=== PATIENT | female | born 1955 | race Caucasian/White ===

== ENCOUNTER → 2023-06-15 09:35 | Outpatient (REF) | payer OTHER, SELFPAY | LOC: HWWDC 09:35 | PROVIDERS: ATTENDING PHYSICIAN Internal Medicine | DX: Z12.31 Encounter for screening mammogram for malignant neoplasm of breast (principal) | CPT/HCPCS: 77063; 77067 ==

== ENCOUNTER 2024-05-01 12:35 | Emergency (ER) | payer OTHER, SELFPAY ==
[2024-05-01 13:02] VITALS: BP 168/87
[2024-05-01 13:30] LABS: % Basophils 0.7 % (0-2); % Eosinophils 0.9 % (0-6); % Immature Granulocytes 0.2 % (0-0.5); % Lymphocytes 31.7 % (20.5-51.1); % Monocytes 10.3 % (1.7-9.3); % Neutrophils 56.2 % (42.2-75.2); Absolute Lymphocytes 1.5 10^3/uL (1.2-3.4); Absolute Monocytes 0.5 10^3/uL (0.1-0.6); Absolute Neutrophils 2.6 10^3/uL (1.4-6.5); Hematocrit 38.7 % (37.0-47.0); Hemoglobin 13.4 g/dL (12.0-16.0); Mean Corp Hgb Conc. 34.6 g/dL (33.0-37.0); Mean Corpuscular Hgb 30.9 pg (27.0-31.0); Mean Corpuscular Volume 89.4 fL (81.0-99.0); Mean Platelet Volume 8.4 fL (7.4-10.4); Nucleated Red Blood Cells % 0 %; Platelet Count 224 10^3/uL (130-400); Red Blood Cell Count 4.33 10^6/uL (4.20-5.40); Red Cell Dist. Width 11.9 % (11.5-14.5); White Blood Cell Count 4.6 10^3/uL (4.8-10.8)
[2024-05-01 13:43] LABS: ALT (SGPT) 16 U/L (0-35); AST (SGOT) 23 U/L (14-36); Albumin 4.7 g/dl (3.5-5.0); Alkaline Phosphatase 70 U/L (38-126); Blood Urea Nitrogen 21 mg/dl (7-17); Calcium 9.5 mg/dl (8.4-10.2); Carbon Dioxide 26 mmol/L (22-30); Chloride 101 mmol/L (98-107); Glucose 99 mg/dl (70-99); Potassium 4.2 mmol/L (3.5-5.1); Sodium 136 mmol/L (135-145); Total Bilirubin 1.1 mg/dl (0.2-1.3); Total Protein 7.6 g/dl (6.3-8.2); eGFR > 60.00
[2024-05-01 13:53] LABS: Troponin I < 0.012 ng/ml
[2024-05-01 16:12] VITALS: BP 160/74
[2024-05-01 16:16] VITALS: BMI 31.2
--- NOTE | 2024-05-01 16:27 | ED.GENMED ---
History of Present Illness
<Franci Griffiths PA-C - Last Filed: 05/01/24 18:09>
General
Chief Complaint: Chest Problem
Source: patient
Exam Limitations: none
Time Seen by Provider: 05/01/24 16:23
Nursing documentation reviewed up to this point in time: agreed with
History of Present Illness
History of Present Illness:
69 y/o female with pmh of Crohn's disease, HLP who presents to the emergency department with chest pain for the past week. Patient reports that when this first started, she thought nothing of it and thought it could be indigestion. Patient reports
that then her systems persisted and when her symptoms lasted around a week, she told her family who recommended she report to the emergency department. She called her primary care provider letting her know of the symptoms who also recommended she
should come in. She denies a positional or pleuritic component to her symptoms. She denies any recent long distance travel, denies any redness or swelling in her legs. She denies any abdominal pain, nausea, vomiting. Patient does note that she
has had a cough and some respiratory symptoms recently, denies any fevers or chills. She denies any personal history of cardiac disease, she does note that her's sister and her mom have coronary artery disease.
Past History
<Franci Griffiths PA-C - Last Filed: 05/01/24 18:09>
Past History
ED Past Medical History: CVA, Hypercholesterolemia and Other (TIA/Crohn's disease )
ED Past Surgical History: None and Orthopedic
Social History
Tobacco: Non-smoker
Alcohol: Occasional
Drug: None
Personal:
Living: with family
Family History
Family History: Other (Mother with breast cancer, father with a brain tumor)
Review of Systems
<Franci Griffiths PA-C - Last Filed: 05/01/24 18:09>
Review of Systems
All Other Systems: ROS reviewed and negative except as documented in HPI and ROS
Phy Exam
<Franci Griffiths PA-C - Last Filed: 05/01/24 18:09>
Physical Exam
Physical Exam:
General: Patient is well appearing and in no acute distress; non-toxic
Skin: Warm and dry, no rashes or lesions
Head: Normocephalic, atraumatic
Eyes: Sclera non-icteric. EOMs intact.
Cardiac: Regular rate and rhythm, no murmurs
Peripheral Vascular: No lower extremity swelling or edema
Pulm: Normal respiratory effort, no wheezes, rales, or rhonchi
Musculoskeletal: No tenderness to palpation of the external chest wall
Neuro: CN II-XII intact, no focal neurologic deficits.
Psychiatric: Appropriate mood and affect.
Course
<Franci Griffiths PA-C - Last Filed: 05/01/24 18:09>
Orders/Labs/Results
Orders:
Orders
05/01/24 13:05
Electrocardiogram (*1) Urgent
Reason for Study: Chest Pain
EKG- Treatment ONCE
05/01/24 13:14
Complete Blood Count/With Diff Urgent
Comprehensive Metabolic Panel Urgent
Troponin I Urgent
05/01/24 16:29
Troponin I Urgent
05/01/24 16:44
CR Chest - 2 Views Urgent
Comment:
Reason For Exam: chest pain
Abnormal Lab Results
05/01/24
13:14
WBC 4.6 L 10^3/uL
(4.8-10.8)
Monocytes % 10.3 H %
(1.7-9.3)
BUN 21 H mg/dl
(7-17)
05/01/24 13:14
05/01/24 13:14
Vital Signs
Initial and Last Documented VS:
Initial Vital Signs
Temp Pulse Resp BP Pulse Ox
36.9 C 78 18 168/87 99
05/01/24 13:02 05/01/24 13:02 05/01/24 13:02 05/01/24 13:02 05/01/24 13:02
Last Documented Vital Signs
Temp Pulse Resp BP Pulse Ox
37.1 C 64 18 154/77 96
05/01/24 16:16 05/01/24 17:15 05/01/24 17:15 05/01/24 18:00 05/01/24 18:00
<Bhupendra Vaughan MD - Last Filed: 05/01/24 20:38>
Orders/Labs/Results
Orders:
Orders
05/01/24 13:05
Electrocardiogram (*1) Urgent
Reason for Study: Chest Pain
EKG- Treatment ONCE
05/01/24 13:14
Complete Blood Count/With Diff Urgent
Comprehensive Metabolic Panel Urgent
Troponin I Urgent
05/01/24 16:29
Troponin I Urgent
05/01/24 16:44
CR Chest - 2 Views Urgent
Comment:
Reason For Exam: chest pain
Abnormal Lab Results
05/01/24
13:14
WBC 4.6 L 10^3/uL
(4.8-10.8)
Monocytes % 10.3 H %
(1.7-9.3)
BUN 21 H mg/dl
(7-17)
05/01/24 13:14
05/01/24 13:14
Vital Signs
Initial and Last Documented VS:
Initial Vital Signs
Temp Pulse Resp BP Pulse Ox
36.9 C 78 18 168/87 99
05/01/24 13:02 05/01/24 13:02 05/01/24 13:02 05/01/24 13:02 05/01/24 13:02
Last Documented Vital Signs
Temp Pulse Resp BP Pulse Ox
37.1 C 64 18 154/77 96
05/01/24 16:16 05/01/24 17:15 05/01/24 17:15 05/01/24 18:00 05/01/24 18:00
<Franci Griffiths PA-C - Last Filed: 05/01/24 18:09>
MDM/Problems Addressed
Differential Diagnosis Includes:
see below
MDM/Problems Addressed:
NUMBER AND COMPLEXITY OF PROBLEMS ADDRESSED AT THE ENCOUNTER
� Chronic conditions affecting care: HLP, crohn's disease
� Acute Exacerbation and/or Progression of Chronic Illness: n/a
� Differential Diagnosis includes: ACS, costochondritis, GERD, musculoskeletal sprain/strain, pneumothorax
AMOUNT AND/OR COMPLEXITY OF DATA TO BE REVIEWED AND ANALYZED
� I performed an independent evaluation of and my interpretation is:
EKG: Normal sinus rhythm with no concerning ischemic changes, no ST segment elevation or depression, rate 69, no QT prolongation
X-rays: No acute cardiopulmonary abnormality
Laboratory Studies: CBC and CMP unremarkable, troponin undetectable x 2
Other:
� Review of other/old records: Reviewed previous ER physician documentation from 11/01/2021 3, patient seen for fall, patient had a negative workup and was sent home
� Clinical information was obtained by an independent historian: n/a
� Prescriptions/Medications Considered but not given: n/a
� Further testing considered but not performed: n/a
RISK OF COMPLICATIONS AND/OR MORBIDITY OR MORTALITY OF PATIENT MANAGEMENT
� Social determinants of health affecting care: none
� Discussion with other providers: ER attending
� Escalation of care including admission/observation vs risk of discharge considered:
69-year-old female presents to emergency department with chest pressure for the past week. She has a mild associated cough but no other associate symptoms. She has no cardiac history. She has no DVT risk factors. She is well-appearing on exam.
She did 2 undetectable repeat troponins. Her EKG does not show any concerning ischemic changes. Her chest x-ray does not show any evidence of pneumonia or pneumothorax or any other acute cardiopulmonary abnormality. Patient states that she
thought this could be indigestion however states that feels a bit different than indigestion she has had in the past. Will trial on a PPI to see if this helps her symptoms, suspect either GERD versus costochondritis. Patient does have a follow-up
appointment with her PCP in May for reassessment. Patient stable for discharge.
<Franci Griffiths PA-C - Last Filed: 05/01/24 18:09>
*Critical Care Note
Total Time (30-74mins, 75-104mins- exclusive of procedures): Not Applicable
ED Attending Note
<Franci Griffiths PA-C - Last Filed: 05/01/24 18:09>
-
Portions of this chart may have been created with voice recognition software.� Occasional wrong word or��sound alike� substitutions may have occurred due to the inherent limitations of voice recognition software.
<Bhupendra Vaughan MD - Last Filed: 05/01/24 20:38>
ED Attending Note
Patient seen and examined by attending physician: Yes
ED Attending Note:
I have seen and evaluated the patient with a [id number] encounter. I have spoken to the advance practicer provider and involved in the medical history, the physical exam, medical decision making.
Evaluation and management service: agree unless noted differently below.
Results interpretation: agree unless noted differently below.
Focused HPI: 69-year-old female with history of hyperlipidemia, Crohn's disease presents to the ER for evaluation of chest pain. Patient reports symptoms have been consistent for a week. She describes generalized heaviness/pressure substernal. No
exacerbating or relieving factors noted. Specifically denies exertional component. Denies any significant shortness of breath. She denies any coughing or fever. She denies any nausea, vomiting, abdominal pain. Has not noticed any swelling or
pain in the legs. She denies similar symptoms in the past. She denies any known cardiac history. Only family history of heart disease is valvular issues and her sister and CAD in her mother at end-of-life.
Physical exam: Awake alert and well-appearing. Vital signs noted for mild hypertension. She has no edema. Abdomen nontender. No cardiac rubs gallops or murmurs. Lungs clear to auscultation.
Medical Decision Makin-year-old female presents for evaluation of atypical nonexertional chest pain. Vitals and exam as above. Labs including CBC and CMP unremarkable. Serial troponins undetectable. Chest x-ray reviewed by me shows no acute
disease. Low suspicion for emergent pathology, suspicion is potentially for GERD. Reasonable to trial PPI. Referred to PCP for outpatient follow-up. Patient comfortable with this plan. All questions answered.
Discharge Plan
Departure
Patient Disposition: Home (Routine Discharge)
Date of Disposition: 05/01/24
Time of Disposition: 18:06
Patient with high blood pressure during this ER visit?: Yes
Condition: Good
Discharge Problem:
Chest pain
Instructions: Chest Pain (DC), Acid reflux and GERD in adults, BLOOD PRESSURE
Prescriptions:
New
pantoprazole 40 mg tablet,delayed release (DR/EC)
40 mg PO DAILY 14 Days Qty: 14 0RF
No Action
Pharmanex Vitamin Pack- 7 Vitamins
7 tab PO DAILY
Patient Comments:
Pt unsure of exact doseage
OMEGA-3
2 tab PO DAILY
Patient Comments:
Pt unsure of exact dose
Pharmanex Cartiledge
2 tab PO DAILY
Patient Comments:
Pt unsure of exact dose of medication
Pharmanex Pro-Biotic
1 tab PO DAILY
Patient Comments:
Pt unsure of exact dose
VITAMIN D 1,000 MG
1 tab PO DAILY
Patient Comments:
Pt unsure of exact doseage
gabapentin 300 MG capsule
300 mg PO HS
Simvastatin
PO DAILY
Referrals:
UNKNOWN - PT DOES,NOT KNOW [Family Provider] -
Activity Restrictions/Additional Instructions:
A medication called pantoprazole has been sent to your pharmacy. You can take 1 tablet once daily for 2-week trial. Please take this in the morning. Please follow-up with your primary care provider as scheduled in May for reassessment.
Please return to emergency department should you experience an acute worsening of your symptoms, shortness of breath, lightheadedness, dizziness, radiation of the pain, confusion, weakness, facial droop, trouble speaking, or any other signs or
symptoms worrisome to you.
Interventions
Interventions:
*Risk Screen - Suicide Last Done: 05/01/24 16:23
*General Assessment Last Done: 05/01/24 16:23
*Neglect/Abuse Screening Last Done: 05/01/24 16:23
ED- Fall Risk Assessment Last Done: 05/01/24 16:21
*ED COVID-19 Vaccine History Last Done: 05/01/24 16:23
*Nursing Disposition Last Done: 05/01/24 18:16
ED- Cardiac Assessment Last Done: 05/01/24 16:21
ED- Pulmonary Assessment Last Done: 05/01/24 16:21
Discharge Date and Time
Discharge Date/Time: 05/01/24 18:17
Print Language: ROMANIAN
[2024-05-01 17:00] VITALS: BP 139/74
[2024-05-01 17:06] LABS: Troponin I < 0.012 ng/ml
[2024-05-01 18:00] VITALS: BP 154/77
== END 2024-05-01 18:17 | disposition home or self-care (01) ==
LOC: EMR 12:35
PROVIDERS: Emergency Medicine; Physician Assistant; EMERGENCY PHYSICIAN Emergency Medicine
DX: R07.89 Other chest pain (principal); K50.90 Crohn's disease, unspecified, without complications; E78.00 Pure hypercholesterolemia, unspecified; Z80.3 Family history of malignant neoplasm of breast; Z82.49 Family history of ischemic heart disease and other diseases of the circulatory system; Z86.73 Personal history of transient ischemic attack (TIA), and cerebral infarction without residual deficits
CPT/HCPCS: 99283; 71046; 80053; 84484; 85025; 93005

== ENCOUNTER → 2024-06-17 12:33 | Outpatient (REF) | payer OTHER, SELFPAY | LOC: HWRAD 12:33 | PROVIDERS: ATTENDING PHYSICIAN Emergency Medicine; REFERRING PHYSICIAN Obstetrics & Gynecology | DX: N95.1 Menopausal and female climacteric states (principal); Z12.31 Encounter for screening mammogram for malignant neoplasm of breast | CPT/HCPCS: 77063; 77067; 77080 ==

== ENCOUNTER → 2024-06-25 08:13 | Outpatient (REF) | payer OTHER, SELFPAY | LOC: RST 08:13 | PROVIDERS: ATTENDING PHYSICIAN Emergency Medicine | DX: R13.10 Dysphagia, unspecified (principal) | CPT/HCPCS: 74230; 92611 ==

== ENCOUNTER 2024-11-15 13:08 | Inpatient (IN) | payer OTHER, SELFPAY ==
[2024-11-15] VITALS (15 sets, daily range): BP systolic 94–130; BP diastolic 55–77; BMI 28.8
[2024-11-15 06:54] LABS: ALT (SGPT) 47 U/L (0-35); AST (SGOT) 34 U/L (14-36); Albumin 2.8 g/dl (3.5-5.0); Alkaline Phosphatase 72 U/L (38-126); Blood Urea Nitrogen 15 mg/dl (7-17); Calcium 7.3 mg/dl (8.4-10.2); Carbon Dioxide 18 mmol/L (22-30); Chloride 107 mmol/L (98-107); Estimated Creatinine Clearance 74 ml/min; Glucose 151 mg/dl (70-99); Lipase 43 U/L (23-300); Potassium 3.8 mmol/L (3.5-5.1); Sodium 128 mmol/L (135-145); Total Protein 5.0 g/dl (6.3-8.2); eGFR > 60.00
[2024-11-15 07:08] LABS: Hematocrit 28.9 % (37.0-47.0); Hemoglobin 10.0 g/dL (12.0-16.0); Mean Corp Hgb Conc. 34.6 g/dL (33.0-37.0); Mean Corpuscular Volume 86.8 fL (81.0-99.0); Nucleated Red Blood Cells % 0 %; Platelet Count 20 10^3/uL (130-400); Red Cell Dist. Width 13.6 % (11.5-14.5)
[2024-11-15] MEDS: NSS 1000 IV (07:45)
[2024-11-15] MEDS: ZOFRAN 4 MG IV ×2 (07:46→10:57)
[2024-11-15] MEDS: MORPHINE SULFATE 4 MG IV (07:46)
--- NOTE | 2024-11-15 07:56 | ED.GENMED ---
History of Present Illness
General
Chief Complaint: Fainting Sensation
Time Seen by Provider: 11/15/24 07:02
History of Present Illness
History of Present Illness:
69-year-old female with history of stomach cancer undergoing chemotherapy presenting for weakness and near syncopal episode. Prior to arrival, patient got up to go to the bathroom. On the way back to the bed, felt she was going to have diarrhea
passed out, so has been later on the ground and she had an episode of diarrhea. Last chemotherapy session was 1 week ago. Patient has since been feeling very fatigued, nauseous, and multiple episodes of diarrhea. Patient follows with [facility],
went to their facility on , 2 days ago, due to her symptoms. She was given IV fluids and had laboratory analysis which was grossly unremarkable with the exception of a platelet count of 50. Patient denies chest pain or difficulty
breathing. She denies any fever. She has generalized abdominal discomfort, slightly more pronounced than her baseline. Denies additional acute medical complaints
Past History
Past History
ED Past Medical History: CVA, Hypercholesterolemia and Other (TIA/Crohn's disease )
ED Past Surgical History: None and Orthopedic
Social History
Tobacco: Non-smoker
Alcohol: Occasional
Drug: None
Personal:
Living: with family
Family History
Family History: Other (Mother with breast cancer, father with a brain tumor)
Phy Exam
Physical Exam
Physical Exam:
General: Dry mucous membranes, fatigued
HEENT: protecting airway
Neck: appears supple
CV: Normal heart rate, regular rhythm
Resp: No accessory muscle use, no increased work of breathing, lungs clear to auscultation bilaterally
Abd: Soft and non-distended, generalized tenderness, most prominent in the epigastric region of the lower abdomen
Extremities: No deformities, no swelling, no erythema
Neuro: alert, no focal neurologic deficit
: deferred
Rectal: deferred
Psych: Normal affect
Skin: Intact
Course
Orders/Labs/Results
Orders:
Orders
11/15/24 06:25
Electrocardiogram (*1) Urgent
Reason for Study: Chest Pain
Cardiac Monitoring- Treatment ONCE
EKG- Treatment ONCE
IV Insert/Care/Rem.- Treatment PRN
11/15/24 06:28
Complete Blood Count/With Diff Urgent
Comprehensive Metabolic Panel Urgent
Lipase Urgent
11/15/24 07:29
CT Abd/pelvis W Iv Cont Urgent
Comment:
Reason For Exam: general pain, diarrhea, hx stomach CA
0.9% Sodium Chloride 1000 ml [Nss] 1,000 ml IV BOLUS
Morphine Sulfate 4 mg IV NOW STA
Ondansetron Injectable [Zofran] 4 mg IV NOW STA
11/15/24 07:40
Lidocaine/Epinephrine/Tetracai [Let Topical Anesthetic Gel] 3 ml .ROUTE .STK-MED ONE
11/15/24 08:57
Cefepime HCl [Maxipime] 2,000 mg IV NOW STA
MetroNIDAZOLE IVPB 500 mg IVPB NOW MetroNIDAZOLE 500 MG/100 ML [Flagyl 500 mg] 100 ml IV NOW
Nursing to Place Non Medication Order As Directed
Physician Order: neutropenic precautions
11/15/24 09:00
Blood Culture Q30M
ROLANDO Source: Blood/Venous
Specimen Description:
11/15/24 09:30
Blood Culture Q30M
ROLANDO Source: Blood/Venous
Specimen Description:
Abnormal Lab Results
11/15/24
06:28
WBC 0.2 L* 10^3/uL
(4.8-10.8)
RBC 3.33 L 10^6/uL
(4.20-5.40)
Hgb 10.0 L g/dL
(12.0-16.0)
Hct 28.9 L %
(37.0-47.0)
Plt Count 20 L* 10^3/uL
(130-400)
MPV 13.7 H fL
(7.4-10.4)
Absolute Neuts (auto) 0.1 L* 10^3/uL
(1.4-6.5)
Absolute Lymphs (auto) 0.1 L 10^3/uL
(1.2-3.4)
Absolute Monos (auto) 0.0 L 10^3/uL
(0.1-0.6)
Neutrophils % 23.9 L %
(42.2-75.2)
Lymphocytes % 57.1 H %
(20.5-51.1)
Monocytes % 19.0 H %
(1.7-9.3)
Sodium 128 L mmol/L
(135-145)
Carbon Dioxide 18 L mmol/L
(22-30)
Glucose 151 H mg/dl
(70-99)
Calcium 7.3 L mg/dl
(8.4-10.2)
Total Bilirubin 2.9 H mg/dl
(0.2-1.3)
ALT 47 H U/L
(0-35)
Total Protein 5.0 L g/dl
(6.3-8.2)
Albumin 2.8 L g/dl
(3.5-5.0)
11/15/24 06:28
11/15/24 06:28
Vital Signs
Initial and Last Documented VS:
Initial Vital Signs
Temp Pulse Resp BP Pulse Ox
99.3 F 88 22 109/61 97
11/15/24 06:16 11/15/24 06:16 11/15/24 06:16 11/15/24 06:16 11/15/24 06:16
Last Documented Vital Signs
Temp Pulse Resp BP Pulse Ox
99.3 F 94 25 109/62 95
11/15/24 06:16 11/15/24 07:00 11/15/24 07:00 11/15/24 07:00 11/15/24 07:58
MDM/Problems Addressed
MDM/Problems Addressed:
69-year-old female with history of stomach cancer currently undergoing chemotherapy presenting to the emergency department for near syncope and weakness. Vital signs on arrival are normal.
On exam patient is resting comfortably, no acute distress, nontoxic, however does appear dehydrated with dry mucous membranes and fatigue. Suspect etiology of near syncopal episode prior to arrival. Patient notes she has been having multiple
episodes of diarrhea, large-volume, watery and minimal intake. notes that she has been able to eat very much while on the chemotherapy. Labs reviewed from visit 2 days ago at [place], patient arrives with binder information. BUN and
creatinine within normal limits. Sodium is 139. Platelet count of 50. Repeat laboratory analysis. Patient is having some generalized abdominal discomfort. Suspect colitis. Will plan for CT imaging. For therapeutics will start patient on IV
fluids and Zofran.
08:00 - Patient's labs do show acute change. Sodium is now 129, significant drop from 2 days ago. Platelet count is now 20. Patient is also not neutropenic. Will discuss with [facility], however ultimately require admission for dehydration
09:00 - CT shows concern for enteritis. Did discuss case with Dr. Live Song from [facility]. He is recommending treatment with antibiotics in the setting of neutropenic enteritis. Platelet goal at this time is 10, so no indication for
transfusion. Given electrolyte derangements, patient's symptoms, underlying infection, plan for admission
*Pulse Oximetry
SaO2: 95
Oxygen Mode of Delivery: Room air
Patient hypoxic: no
*EKG
Interpreted by ED Provider?: Yes
EKG Intrepretation Date: 11/15/24
EKG Intrepretation Time: 08:01
Interpretation: normal
Heart Rate: 89
Rate: normal
Rhythm: sinus
Napoleon: normal axis
Interval: normal interval
QRS Pattern: normal QRS
Ischemia: no ischemia
*Critical Care Note
Total Time (30-74mins, 75-104mins- exclusive of procedures): Not Applicable
ED Attending Note
-
Portions of this chart may have been created with voice recognition software.� Occasional wrong word or��sound alike� substitutions may have occurred due to the inherent limitations of voice recognition software.
Discharge Plan
Departure
Prescriptions:
No Action
Pharmanex Vitamin Pack- 7 Vitamins
7 tab PO DAILY
Patient Comments:
Pt unsure of exact doseage
OMEGA-3
2 tab PO DAILY
Patient Comments:
Pt unsure of exact dose
Pharmanex Cartiledge
2 tab PO DAILY
Patient Comments:
Pt unsure of exact dose of medication
Pharmanex Pro-Biotic
1 tab PO DAILY
Patient Comments:
Pt unsure of exact dose
VITAMIN D 1,000 MG
1 tab PO DAILY
Patient Comments:
Pt unsure of exact doseage
gabapentin 300 MG capsule
300 mg PO HS
Simvastatin
PO DAILY
pantoprazole 40 mg tablet,delayed release (DR/EC)
40 mg PO DAILY 14 Days Qty: 14 0RF
Referrals:
Leatha Urban MD [Family Provider, Internal Medicine]
Interventions
Interventions:
*Risk Screen - Suicide Last Done: 11/15/24 06:16
*General Assessment Last Done: 11/15/24 06:16
*Neglect/Abuse Screening Last Done: 11/15/24 06:16
*ED- Fall Risk Assessment Last Done: 11/15/24 06:16
*ED COVID-19 Vaccine History Last Done: 11/15/24 06:16
ED- Cardiac Assessment Last Done: 11/15/24 06:44
ED- Neurological Assessment Last Done: 11/15/24 06:44
Discharge Date and Time
Print Language: VINCENTIAN
[2024-11-15] MEDS: MAXIPIME 2000 MG IV ×2 (09:40→17:36)
[2024-11-15] MEDS: FLAGYL 500 MG 100 IV ×2 (09:45→17:36)
--- NOTE | 2024-11-15 09:57 | HPS.HSE ---
Family Physician
-
Family Physician: Leatha Urban MD
Chief Complaint
-
Abdominal Pain, Diarrhea
History of Present Illness
69-year-old female with history of stomach cancer (undergoing chemotherapy at [facility] -- last chemotherapy was 1 week prior -- 3 treatments so far), TIA/CVA, Crohn's Disease, hyperlipidemia, OA, allergic to penicillin, total left knee replacement
and rotator cuff repair presented with weakness and near syncopal episode. Prior to arrival, patient got up to go to the bathroom. On the way back to the bed, felt she was going to have diarrhea and passed out, she then had an episode of diarrhea.
Patient has since been feeling very fatigued, nauseous, and multiple episodes of diarrhea since her last chemotherapy about 1 week prior. Per patient's family, she has not had anything to eat in 5 days. Patient follows with [facility], went to their
facility on Tuesday November 12, 2024, due to her symptoms. She was given IV fluids and had laboratory showing platelet count of 50, WBC 5 and sodium in the upper 130s. Patient denied fever, chest pain or difficulty breathing. She has generalized
abdominal discomfort.
Medical History
Past Medical History
Past Medical History: Reports Other (As per HPI above)
Past Surgical History: Reports Orthopedic (Joint Replacement. Thumb surgery. Right Rotator Cuff Replacement.) and Other (Colonoscopy. Moh's Excision Skin Cancer Tissue. Hemorrhoidectomy. Sphincterotomy, anal.)
Social History
Tobacco: Former Smoker
Alcohol: None
Drug: None
Family History
Family History: Cancer and Other (Stroke)
Allergies / Home Medications
Allergies reflects when Allergies were last updated in [facility].
Home Medications with original date entered in [facility]
Allergy/Medication List:
Allergies
Allergy/AdvReac Type Severity Reaction Status Date / Time
penicillin G Allergy Severe Rash Verified 11/15/24 06:15
Penicillins Allergy Severe Rash Verified 11/15/24 06:15
Home Medications
acetaminophen 325 mg tablet (Tylenol) 650 mg PO Q6HPRN PRN mild pain 11/15/24
dexamethasone 4 mg tablet 4 mg PO DIRECTED 11/15/24
dicyclomine 20 mg tablet 20 mg PO Q6HPRN PRN abdominal cramping 11/15/24
ibuprofen 400 mg tablet 400 mg PO Q8HPRN PRN mild pain 11/15/24
loperamide 1 mg/7.5 mL oral liquid 2 mg PO Q6HPRN PRN dairrhea 11/15/24
loratadine 10 mg tablet (Claritin) 10 mg PO DIRECTED 11/15/24
ondansetron HCl 8 mg tablet 8 mg PO Q8HPRN PRN nausea 11/15/24
pantoprazole 40 mg tablet,delayed release (Protonix) 40 mg PO DAILY 11/15/24
prochlorperazine maleate 10 mg tablet (Compazine) 10 mg PO Q6HPRN PRN nausea 11/15/24
zolpidem 5 mg tablet (Ambien) 5 mg PO HS sleep 11/15/24
Review of Systems
-
A 12 point ROS was completed and negative except as noted: Yes
Physical Exam
Vital Signs
Vital Signs
Temp Pulse Resp BP Pulse Ox
98.9 F 94 25 130/67 95
11/15/24 09:21 11/15/24 09:00 11/15/24 07:00 11/15/24 09:00 11/15/24 08:34
Physical Exam
General: Appears Chronically Ill
HEENT: NormoCephalic
Respiratory: Clear
Cardiac: S1/S2 and Regular Rhythm
GI: Soft, Normal Bowel Sounds and Tender
Musculoskeletal: No Cyanosis
Skin: Warm and Dry
Neuro: Other (Sleepy)
Psych: Calm and Intact Judgment/Insight
Laboratory Results
-
11/15/24 06:28
11/15/24 06:28
Laboratory Results
Total Bilirubin 2.9 mg/dl (0.2-1.3) H 11/15/24 06:28
AST 34 U/L (14-36) 11/15/24 06:28
ALT 47 U/L (0-35) H 11/15/24 06:28
Alkaline Phosphatase 72 U/L (38-126) 11/15/24 06:28
Lipase 43 U/L (23-300) 11/15/24 06:28
Impression/Plan
-
Assessment/Plan
Abdominal Pain with associated neutropenic enterocolitis
Nausea and not eating for ~5 days prior to presentation
Large volume, frequent, watery diarrhea
Hypovolemia secondary to diarrhea
-ER provider discussed with [facility] oncology Dr. Live Song - recommend neutropenic precautions, and broad spectrum abx for her neutropenic colitis.
-Suspected from infectious enteritis/infectious colitis
-Continue Cefepime and Flagyl
-IV fluids with half normal with 75 mill equivalent of sodium bicarbonate per liter and run it at 125 cc an hour
-NPO except meds
-Stool studies
-Blood cultures pending
Recent UTI
-Denied any further UTI symptoms today
-Did not finish Macrobid given hospitalization
-On antibiotics as above
Non-Anion Gap Metabolic Acidosis
-Continue bicarb IV fluids as above
Near Syncope prior to arrival
-Likely from dehydration and hypovolemia
Neutropenia
Pancytopenia
Thrombocytopenia
-Neutropenic precautions
-Per [facility], no platelets transfusion unless platelets down to 10
-If patient is bleeding, will also need to consider platelet transfusion in that case
-Regular products for platelets are fine.
Hypovolemic Acute Hyponatremia
-Per records, patient's sodium was in upper 130s, 2 days ago
-Normal Saline bolus given in the ER
-PO FR 40 ounces
-Replacement IV fluids as above
History of Crohn's Disease
Osteoarthritis
History of Basal Cell Carcinoma
History of Colon Polyp
History of Delayed Emergence from Anesthesia
History of Esophageal Ulcer
History of Hiatal Hernia
Osteoporosis
DVT Prophylaxis: SCDs. No chemical DVT prophylaxis given thrombocytopenia.
Code Status: Full Code
I spoke extensively with patient's family at the time of admission, and I answered all of their questions and concerns to satisfaction.
[2024-11-15] MEDS: SODIUM BICARBONATE 1075 MEQ IV ×2 (13:37→23:35)
--- NOTE | 2024-11-15 15:03 | W.PN.UPDATE ---
Update Note
Progress Note Update
Patient's oncologist (Dr. Osuna) called emergency room physician, Dr. Joselin Reynolds, who spoke directly to Dr. Osuna. Dr. Osuna said if he could be of service during the admission his number is [phone].
[2024-11-15] MEDS: DILAUDID 0.25 MG IV ×2 (16:21→20:47)
[2024-11-15] MEDS: PROTONIX 40 MG PO (16:21)
[2024-11-15] MEDS: STERILE WATER FOR INJECTION 10 ML IV (17:36)
[2024-11-15] MEDS: ZOFRAN 8 MG PO (21:09)
[2024-11-15 22:27] LABS: Blood Urea Nitrogen 16 mg/dl (7-17); Calcium 6.6 mg/dl (8.4-10.2); Carbon Dioxide 18 mmol/L (22-30); Chloride 105 mmol/L (98-107); Estimated Creatinine Clearance 74 ml/min; Glucose 139 mg/dl (70-99); Potassium 3.7 mmol/L (3.5-5.1); Sodium 128 mmol/L (135-145); eGFR > 60.00
[2024-11-15 22:49] LABS: Urine Character Clear (Clear)
[2024-11-15 23:11] LABS: Urine Squamous Cell >30 /LPF (Few)
[2024-11-15] MEDS: AMBIEN 5 MG PO (23:23)
[2024-11-15] MEDS: TYLENOL 650 MG PO (23:35)
[2024-11-16] MEDS: CALCIUM GLUCONATE 100 IV (01:06)
[2024-11-16] MEDS: STERILE WATER FOR INJECTION 10 ML IV ×3 (02:07→18:06)
[2024-11-16] MEDS: FLAGYL 500 MG 100 IV ×3 (02:08→18:06)
[2024-11-16] MEDS: MAXIPIME 2000 MG IV ×3 (02:11→18:08)
[2024-11-16 03:00] VITALS: BP 97/53
[2024-11-16 04:24] VITALS: BMI 27.3
[2024-11-16] MEDS: SODIUM BICARBONATE 1075 MEQ IV ×2 (06:04→14:55)
[2024-11-16 07:25] VITALS: BP 95/64
--- NOTE | 2024-11-16 07:32 | CON.ONC ---
Consultation
-
Date Consultation Requested: 11/15/24
Date Consultation Performed: 11/16/24
Requesting Provider: Patsy
Performing Provider: Aydin
Reason for Consultation: Gastric Ca
Impression
Impression
Neutropenic enterocolitis
Gastric cancer on FLOT + Durvalumab chemotherapy
Severe pancytopenia with ANC of 0.1
History of Crohn's disease
Plan
Plan
Supportive care with IV fluids and IV antibiotics.
The patient recieved [place] G-CSF at [facility] and additional has never been shown to significantly change outcomes.
Reaching out to Dr. Osuna. He agrees.
Attempted to reach for confirmation but went to voicemail.
Consult GI particularly as patient has history of Crohn's and has been receiving immunotherapy.
Patient History
History of Present Illness
Primary Oncologist: Billy Osuna, [facility]
Family Physician: Leatha Urban MD
CC: Abdominal Pain, Diarrhea
HPI: 69-year-old female with locally advanced but potentially surgically curable gastric cancer undergoing FLOT + durvalumab chemo-immunotherapy at [place] ([facility] trial design) s/p 3 cycles of 4 proposed pre-op presented with weakness and
near syncopal episode following multiple days of diarrhea. Prior to arrival, patient got up to go to the bathroom. On the way back to the bed, felt she was going to have diarrhea and passed out, she then had an episode of diarrhea. Patient has
since been feeling very fatigued, nauseous, and multiple episodes of diarrhea since her last chemotherapy about 1 week prior. Had been receiving IV fluids at [facility]. Patient denied fever, chest pain or difficulty breathing. She has generalized
abdominal discomfort. CBC revealed severe pancytopenia and CT scan revealed large bowel inflammatory process consistent with neutropenic enterocolitis. Patient was started on cefepime + Flagyl and IV fluids.
Past-Medical/Surgical History
PMH: Gastric cancer, TIA/CVA, Crohn's Disease, hyperlipidemia, OA, Basal Cell Carcinoma, History of Colon Polyp, PUD, Hiatal Hernia, Osteoporosis
PSH: total left knee replacement, rotator cuff repair, Colonoscopy. Moh's Excision Skin Cancer Tissue. Hemorrhoidectomy. Sphincterotomy, anal.
SH:
Tobacco: Former Smoker
Alcohol: None
Drug: None
Family History: Cancer and Other (Stroke)
Allergies: PCN
Patient Medication
�Medication �Instructions �Recorded �Confirmed �Last Taken �Type
acetaminophen 325 mg tablet 650 mg PO Q6HPRN PRN mild pain 11/15/24 11/15/24 11/14/24 History
(Tylenol)
dexamethasone 4 mg tablet 4 mg PO DIRECTED 11/15/24 11/15/24 11/08/24 History
dicyclomine 20 mg tablet 20 mg PO Q6HPRN PRN abdominal 11/15/24 11/15/24 11/14/24 History
cramping
ibuprofen 400 mg tablet 400 mg PO Q8HPRN PRN mild pain 11/15/24 11/15/24 10/19/24 History
loperamide 1 mg/7.5 mL oral liquid 2 mg PO Q6HPRN PRN dairrhea 11/15/24 11/15/24 11/14/24 History
loratadine 10 mg tablet (Claritin) 10 mg PO DIRECTED 11/15/24 11/15/24 11/07/24 History
ondansetron HCl 8 mg tablet 8 mg PO Q8HPRN PRN nausea 11/15/24 11/15/24 11/14/24 History
pantoprazole 40 mg tablet,delayed 40 mg PO DAILY 11/15/24 11/15/24 11/14/24 History
release (Protonix)
prochlorperazine maleate 10 mg 10 mg PO Q6HPRN PRN nausea 11/15/24 11/15/24 Unknown History
tablet (Compazine)
zolpidem 5 mg tablet (Ambien) 5 mg PO HS sleep 11/15/24 11/15/24 11/14/24 History
Active Medications
Generic Name Dose Route Start Last Admin
Trade Name Freq PRN Reason Stop Dose Admin
Acetaminophen 650 mg 11/15/24 15:50 11/15/24 23:35
Acetaminophen 325 Mg Tablet PO 12/13/24 15:49 650 mg
Q6HPRN PRN Administration
mild pain
Cefepime HCl 2,000 mg 11/15/24 18:00 11/16/24 02:11
Cefepime Hcl 2,000 Mg/12.5 Ml Vial IV 2,000 mg
Q8H JULIEN Administration
Heparin Sodium (Porcine) 500 unit 11/16/24 07:15
Heparin Flush Pf (100 Unit/Ml) 5 Ml Syringe IV 12/14/24 07:14
PER PROTOCOL JULIEN
Hydromorphone HCl 0.25 mg 11/15/24 16:07 11/15/24 20:47
Hydromorphone 0.5 Mg/0.5 Ml Syringe IV 11/29/24 16:06 0.25 mg
Q4HPRN PRN Administration
severe pain
Metronidazole 100 mls @ 100 mls/hr 11/15/24 18:00 11/16/24 02:08
Flagyl 500 Mg IV 100 mls
Q8H JULIEN Administration
Sodium Bicarbonate 75 meq/ 1,075 mls @ 125 mls/hr 11/15/24 13:15 11/16/24 06:04
Sodium Chloride IV 1,075 mls
.Q8H36M JULIEN Administration
Ondansetron HCl 8 mg 11/15/24 16:09 11/15/24 21:09
Ondansetron 4 Mg Tablet PO 12/13/24 16:08 8 mg
Q8HPRN PRN Administration
nausea
Pantoprazole Sodium 40 mg 11/15/24 15:50 11/15/24 16:21
Pantoprazole 40 Mg Delayed Release Tablet PO 12/13/24 15:49 40 mg
DAILY JULIEN Administration
Sodium Chloride 0 flush 11/15/24 14:00
Sodium Chloride 0.9% (Flush) Syringe IV 12/13/24 13:59
PER PROTOCOL JULIEN
Sterile Water 10 ml 11/15/24 18:00 11/16/24 02:07
Sterile Water For Injection 10 Ml Vial IV 12/13/24 17:59 10 ml
Q8H JULIEN Administration
Zolpidem Tartrate 5 mg 11/15/24 22:00 11/15/24 23:23
Zolpidem Tartrate 5 Mg Tablet PO 12/13/24 21:59 5 mg
HS JULIEN Administration
Physical Exam
-
General: Well Developed, Well Nourished, No Apparent Distress and Other (Alopecia)
HEENT: Negative Jaundice
Cardiology: S1 and S2
Pulmonary: Clear
GI: Soft and Other (Generalized tenderness without rebound)
Extremities: No C/C/E
Neurology: Non Focal
Labs
Lab Results
WBC 0.2 10^3/uL (4.8-10.8) L* 11/15/24 06:28
RBC 3.33 10^6/uL (4.20-5.40) L 11/15/24 06:28
Hgb 10.0 g/dL (12.0-16.0) L 11/15/24 06:28
Hct 28.9 % (37.0-47.0) L 11/15/24 06:28
MCV 86.8 fL (81.0-99.0) 11/15/24 06:28
MCH 30.0 pg (27.0-31.0) 11/15/24 06:28
MCHC 34.6 g/dL (33.0-37.0) 11/15/24 06:28
RDW 13.6 % (11.5-14.5) 11/15/24 06:28
Plt Count 20 10^3/uL (130-400) L* 11/15/24 06:28
MPV 13.7 fL (7.4-10.4) H 11/15/24 06:28
Abs Immat Gran (auto) 0.0 10^3/uL (0-0.05) 11/15/24 06:28
Absolute Neuts (auto) 0.1 10^3/uL (1.4-6.5) L* 11/15/24 06:28
Absolute Lymphs (auto) 0.1 10^3/uL (1.2-3.4) L 11/15/24 06:28
Absolute Monos (auto) 0.0 10^3/uL (0.1-0.6) L 11/15/24 06:28
Absolute Eos (auto) 0.0 10^3/uL (0-0.7) 11/15/24 06:28
Absolute Basos (auto) 0.0 10^3/uL (0-0.2) 11/15/24 06:28
Immature Gran % 0.0 % (0-0.5) 11/15/24 06:28
Neutrophils % 23.9 % (42.2-75.2) L 11/15/24 06:28
Lymphocytes % 57.1 % (20.5-51.1) H 11/15/24 06:28
Monocytes % 19.0 % (1.7-9.3) H 11/15/24 06:28
Eosinophils % 0.0 % (0-6) 11/15/24 06:28
Basophils % 0.0 % (0-2) 11/15/24 06:28
Creatinine 0.7 mg/dL (0.6-1.0) 11/15/24 21:44
Vital Signs
Vital Signs
Temp Pulse Resp BP Pulse Ox
97.9 F 95 17 95/64 97
11/16/24 07:25 11/16/24 07:25 11/16/24 07:25 11/16/24 07:11/16/24 07:25
[2024-11-16] MEDS: DILAUDID 0.25 MG IV ×4 (07:33→23:36)
[2024-11-16 08:13] LABS: Hematocrit 24.1 % (37.0-47.0); Hemoglobin 8.5 g/dL (12.0-16.0); Mean Corp Hgb Conc. 35.3 g/dL (33.0-37.0); Mean Corpuscular Volume 85.2 fL (81.0-99.0); Nucleated Red Blood Cells % 0 %; Platelet Count 20 10^3/uL (130-400); Red Cell Dist. Width 13.7 % (11.5-14.5)
--- NOTE | 2024-11-16 08:14 | W.PN.HOSP.TC ---
Today's Communication/Plan
-
See plan
Assessment / Plan
Assessment / Plan
Physical Exam
General: Appears Chronically Ill
HEENT: NormoCephalic
Respiratory: Clear
Cardiac: S1/S2 and Regular Rhythm
GI: Soft, Normal Bowel Sounds and Tender
Musculoskeletal: No Cyanosis
Skin: Warm and Dry
Neuro: AAOx3. Nonfocal/grossly intact.
Psych: Calm and Intact Judgment/Insight
Assessment/Plan
69-year-old female with history of stomach cancer (undergoing chemotherapy at [facility] -- last chemotherapy was 1 week prior -- 3 treatments so far), TIA/CVA, Crohn's Disease, hyperlipidemia, OA, allergic to penicillin, total left knee replacement
and rotator cuff repair presented with weakness and near syncopal episode. Prior to arrival, patient got up to go to the bathroom. On the way back to the bed, felt she was going to have diarrhea and passed out, she then had an episode of diarrhea.
Patient has since been feeling very fatigued, nauseous, and multiple episodes of diarrhea since her last chemotherapy about 1 week prior. Per patient's family, she has not had anything to eat in 5 days. Patient follows with [facility], went to their
facility on Tuesday November 12, 2024, due to her symptoms. She was given IV fluids and had laboratory showing platelet count of 50, WBC 5 and sodium in the upper 130s. Patient denied fever, chest pain or difficulty breathing. She has generalized
abdominal discomfort.
Abdominal Pain with associated neutropenic enterocolitis
Nausea and not eating for ~5 days prior to presentation
Large volume, frequent, watery diarrhea
Hypovolemia secondary to diarrhea
-ER provider discussed with [facility] oncology Dr. Live Song - recommend neutropenic precautions, and broad spectrum abx for her neutropenic colitis.
-Suspected from infectious enteritis/infectious colitis
-Continue Cefepime and Flagyl
-IV fluids with half normal with 75 m/L equivalent of sodium bicarbonate per liter and run it at 125 cc an hour
-NPO except meds
-Stool studies
-Blood cultures pending
-Oncologist consulted help desk associate
Stomach Cancer
-Patient's oncologist (Dr. Osuna) called emergency room physician, Dr. Joselin Reynolds, who spoke directly to Dr. Osuna. Dr. Osuna said if he could be of service during the admission his number is [phone].
-Dr. Perrni reached out to Dr. Osuna
Recent UTI
-Denied any further UTI symptoms as of 11/15/24
-Did not finish Macrobid given hospitalization
-On antibiotics as above
Non-Anion Gap Metabolic Acidosis -- from diarrhea and initial normal saline IV fluids
-Continue bicarb IV fluids as above
-Given lack of improvement with bicarb drip, along with development of hypocalcemia while on bicarb drip (bicarb can lower calcium), consulted nephrology next day after admission
Hypotension
-Likely from low albumin and diarrhea
Hypocalcemia
-IV replacement ordered
Near Syncope prior to arrival
-Likely from dehydration and hypovolemia
Neutropenia
Pancytopenia
Thrombocytopenia
-Neutropenic precautions
-No platelets transfusion unless platelets down to 10
-If patient is bleeding, will also need to transfuse platelets
-Regular products for platelets are fine.
Hypovolemic Acute Hyponatremia
-Per records, patient's sodium was in upper 130s, 2 days ago
-Normal Saline bolus given in the ER
-PO FR 40 ounces
-Replacement IV fluids as above
History of Crohn's Disease -- Oncologist consulted gastroenterology who said that no active Crohn's Disease currently
Osteoarthritis
History of Basal Cell Carcinoma
History of Colon Polyp
History of Delayed Emergence from Anesthesia
History of Esophageal Ulcer
History of Hiatal Hernia
Osteoporosis
DVT Prophylaxis: SCDs. No chemical DVT prophylaxis given thrombocytopenia.
Code Status: Full Code
Anticipated Discharge: > 48 hours
Subjective/Interval History
-
Date of Service: November 16, 2024
Patient was seen and examined. Still with abdominal discomfort.
Objective Data
-
Labs:
Laboratory Results
11/15/24 11/16/24 11/16/24
21:44 07:36 07:36
WBC 0.2 L*
Hgb 8.5 L
Hct 24.1 L
Plt Count 20 L*
Sodium 128 L Pending Pending
Potassium 3.7 Pending
Chloride 105
Carbon Dioxide 18 L
BUN 16
Creatinine 0.7
Glucose 139 H
Calcium 6.6 L*
Total Bilirubin
AST
ALT
Alkaline Phosphatase
11/16/24 11/16/24 11/16/24
07:36 07:36 07:36
WBC
Hgb
Hct
Plt Count
Sodium
Potassium Pending
Chloride Pending Pending
Carbon Dioxide Pending Pending
BUN Pending
Creatinine
Glucose
Calcium
Total Bilirubin
AST
ALT
Alkaline Phosphatase
11/16/24 11/16/24 11/16/24
07:36 07:36 07:36
WBC
Hgb
Hct
Plt Count
Sodium
Potassium
Chloride
Carbon Dioxide
BUN Pending
Creatinine Pending Pending
Glucose Pending Pending
Calcium Pending
Total Bilirubin
AST
ALT
Alkaline Phosphatase
11/16/24
07:36
WBC
Hgb
Hct
Plt Count
Sodium
Potassium
Chloride
Carbon Dioxide
BUN
Creatinine
Glucose
Calcium Pending
Total Bilirubin Pending
AST Pending
ALT Pending
Alkaline Phosphatase Pending
Vital Signs:
Vital Signs
Temp Pulse Resp BP Pulse Ox
97.9 F 95 17 95/64 97
11/16/24 07:25 11/16/24 07:25 11/16/24 07:25 11/16/24 07:25 11/16/24 07:25
I&O
11/15/24 11/16/24 11/17/24
06:59 06:59 06:59
Intake Total 1850 / 1850
Output Total 350 / 350
Balance 1500 / 1500
--- NOTE | 2024-11-16 08:17 | W.CON.NEPH ---
Consultation
-
Date/Time Consultation Requested: 11/16/2024 8:15 AM
Date/Time Consultation Performed: 11/16/2024 8:15 AM
Requesting Provider: Dr. Holloway
Performing Provider: Dr. Raymond
Reason for Consultation: Hyponatremia/metabolic acidosis/hypocalcium
Medical History
-
Chief Complaint: Hyponatremia/hypocalcemia/metabolic acidosis
History of Present Illness:
69-year-old female with history of stomach cancer (undergoing chemotherapy at [facility] -- last chemotherapy was 1 week prior -- 3 treatments so far), TIA/CVA, Crohn's Disease, hyperlipidemia, OA, allergic to penicillin, total left knee replacement
and rotator cuff repair presented with weakness and near syncopal episode. Prior to arrival, patient got up to go to the bathroom. On the way back to the bed, felt she was going to have diarrhea and passed out, she then had an episode of diarrhea.
Patient has since been feeling very fatigued, nauseous, and multiple episodes of diarrhea since her last chemotherapy about 1 week prior. Per patient's family, she has not had anything to eat in 5 days. Patient follows with [facility], went to their
facility on Tuesday November 12, 2024, due to her symptoms. She was given IV fluids and had laboratory showing platelet count of 50, WBC 5 and sodium in the upper 130s. Patient denied fever, chest pain or difficulty breathing. She has generalized
abdominal discomfort. Nephrology was consulted for ongoing hyponatremia nongap metabolic acidosis and hypocalcemia.
Past Medical History
(Joint Replacement. Thumb surgery. Right Rotator Cuff Replacement.) and Other (Colonoscopy. Moh's Excision Skin Cancer Tissue. Hemorrhoidectomy. Sphincterotomy, anal.)
Stomach CA, TIA CVA Crohn's disease dyslipidemia osteoarthritis
Social History
Tobacco: Former Smoker
Alcohol: None
Drug: None
Family History
Family History: Not Pertinent
Allergies / Home Medications
Allergy/AdvReac Type Severity Reaction Status Date / Time
penicillin G Allergy Severe Rash Verified 11/15/24 06:15
Penicillins Allergy Severe Rash Verified 11/15/24 06:15
�Medication �Instructions �Recorded �Confirmed �Type
acetaminophen 325 mg tablet 650 mg PO Q6HPRN PRN mild pain 11/15/24 11/15/24 History
(Tylenol)
dexamethasone 4 mg tablet 4 mg PO DIRECTED 11/15/24 11/15/24 History
dicyclomine 20 mg tablet 20 mg PO Q6HPRN PRN abdominal 11/15/24 11/15/24 History
cramping
ibuprofen 400 mg tablet 400 mg PO Q8HPRN PRN mild pain 11/15/24 11/15/24 History
loperamide 1 mg/7.5 mL oral liquid 2 mg PO Q6HPRN PRN dairrhea 11/15/24 11/15/24 History
loratadine 10 mg tablet (Claritin) 10 mg PO DIRECTED 11/15/24 11/15/24 History
ondansetron HCl 8 mg tablet 8 mg PO Q8HPRN PRN nausea 11/15/24 11/15/24 History
pantoprazole 40 mg tablet,delayed 40 mg PO DAILY 11/15/24 11/15/24 History
release (Protonix)
prochlorperazine maleate 10 mg 10 mg PO Q6HPRN PRN nausea 11/15/24 11/15/24 History
tablet (Compazine)
zolpidem 5 mg tablet (Ambien) 5 mg PO HS sleep 11/15/24 11/15/24 History
Review of Systems
-
History Source: Patient
All other systems: Negative unless noted
Constitutional: Weight Loss and Fatigue
Respiratory: No Symptoms
Cardiac: No Symptoms
Abdomen/GI: Abdominal Pain and Diarrhea
: No Symptoms
Skin: No Symptoms
Neurological: No Symptoms
Endocrine: No Symptoms
Hematologic/Lymphatic: No Symptoms
Physical Exam
Vital Signs
Vital Signs
Temp Pulse Resp BP Pulse Ox
97.9 F 95 17 95/64 97
11/16/24 07:25 11/16/24 07:25 11/16/24 07:25 11/16/24 07:25 11/16/24 07:25
Lab Results
11/16/24 07:36
11/16/24 07:36
WBC 0.2 10^3/uL (4.8-10.8) L* 11/16/24 07:36
RBC 2.83 10^6/uL (4.20-5.40) L 11/16/24 07:36
Hgb 8.5 g/dL (12.0-16.0) L 11/16/24 07:36
Hct 24.1 % (37.0-47.0) L 11/16/24 07:36
Plt Count 20 10^3/uL (130-400) L* 11/16/24 07:36
eGFR > 60.00 11/15/24 21:44
Physical Exam
General: AOx3, Nontoxic , chronically ill-appearing, mild distress
HEENT: PERRL, EOMI, Anicteric, Conjunctivae Clear, Ear/Nose Intact, Hearing Normal, Oropharynx Clear/dry, Dentition Intact, Facial Symmetry, Neck Supple, Neck: Trachea Midline, No JVD and No Thyromegaly, no Bruits
Respiratory: Clear to auscultation bilaterally with normal lung exersion
Cardiac: S1/S2 and Regular Rate/Rhythm
Breast: Deferred by me
Abdomen: Very tender to light palpation, decreased bowel Sounds and No Hepatosplenomegaly
Rectal: Deferred by Provider
Genito-urinary: No Costovertebral Tenderness
Extremities: No Clubbing, No Cyanosis and No Edema
Skin: No Rash or open lesions
Neuro: Nonfocal/Grossly Intact, CN II-XII (Intact) and Strength (Musculoskeletal exam 5 out of 5 both upper and lower extremities)
Hematologic/Lymphatic: No Cervical Lymphadenopathy, No Submandibular Lymphadenopathy and No Supraclavicular Lymphadenopathy
Psych: Mood/afflect flat Insight/judgement good and Appropriate
Vascular: plus 2 pedal and radial pulses
Data Reviewed
-
CT Scan: Report Reviewed by me (ileus/enteritis)
Medical Tests (Nuc Med, Echo etc): Other (EKG personally reviewed showed a sinus rhythm at 89 bpm)
Labs: Labs Reviewed by me (BMP CBC, UA)
Old Records: Reviewed (Reviewed previous records sodium 136 as of 05/01/2024 per EMR)
Assessment/Plan
-
Impression:
Hyponatremia
NG Metabolic Acidosis (AG 3)
Hypocalcemia
Diarrhea/abdominal pain/enterocolitis
History of stomach cancer with recent chemotherapy at [facility] 1 week prior (FLOT + Durvalumab)
History of Crohn's disease
History of stroke
Pancytopenia/neutropenia
Plan:
Hyponatremia:
-Likely a function of volume depletion and impaired solute intake, low MAP we will also escalate ADH
-Obtain urine osmolality,urine sodium
-Maintain isotonic IV fluids with sodium bicarb and
-Hypotension likely a function of compromised effective circulating volume due to hypoalbuminemia and diarrhea
Nongap metabolic acidosis:
- Likely a function of continued GI losses
-Maintain alkalized IV fluids
Hypocalcemia:
- Obtain intact PTH
-Continue calcium repletion for up to 4 g today
-Follow-up ionized calcium in a.m.
[2024-11-16 08:19] LABS: ALT (SGPT) 45 U/L (0-35); AST (SGOT) 32 U/L (14-36); Albumin 2.3 g/dl (3.5-5.0); Alkaline Phosphatase 52 U/L (38-126); Blood Urea Nitrogen 20 mg/dl (7-17); Calcium 6.5 mg/dl (8.4-10.2); Carbon Dioxide 21 mmol/L (22-30); Chloride 104 mmol/L (98-107); Estimated Creatinine Clearance 63 ml/min; Glucose 101 mg/dl (70-99); Magnesium 1.7 mg/dl (1.6-2.3); Potassium 3.6 mmol/L (3.5-5.1); Sodium 128 mmol/L (135-145); Total Protein 4.4 g/dl (6.3-8.2); eGFR > 60.00
[2024-11-16] MEDS: PROTONIX 40 MG PO (08:19)
[2024-11-16] MEDS: TYLENOL 650 MG PO (09:20)
--- NOTE | 2024-11-16 10:34 | CON.GI ---
Addendum entered and electronically signed by Kelsey Gerber Do, MD 11/16/24 15:10:
I saw and evaluated the patient. I reviewed the resident�s note and agree with findings and plan as documented in the resident�s note.
Tash Wood is a 69yo W with stage III GEJ diagnosed 08/2024 follows at [facility] on chemotherapy last dose 11/07 who was admitted for weakness and diarrhea. GI consulted for remote history of Crohn's disease. She tells me that crohn's was diagnosed
in her 40s. 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 She denies being on any treatment for her Crohns. She follows with Dr Calhoun at [facility] in [place]. Her last Cscope was 2016 at with polyps and tics.
TI not intubated. She is generally constipated on miralax daily for many years. However since starting chemo she is having more diarrhea that is nonbloody. Vitals AF hypotensive BP 94/61. abdomen TTP with guarding. Labs reviewed severe
neutropenia and anemia. CTAP with IV contrast. Thickening redundant sigmoid colon. R lobe hepatic cyst, small HH.
Impression
- Neutropenic enterocolitis
- H/o Crohn's in remission for >10yrs not on treatment
- Stage III GEJ cancer diagnosed 08/2024 managed at [facility]
- Weight loss
- H/o hemorrhoidectomy and sphincterotomy
Recommendation
- Bowel rest
- IVF
- C/w abx
- Blood cultures, stool studies
- No evidence that crohn's is active currently
- Monitor stool output
- Serial abd exam
- Her chemo is on hold
- C/w PPI
Will follow with you
Original Note:
Consultation
-
Date/Time Consultation Requested: 11/16/2024
Date/Time Consultation Performed: 11/16/2024
Medical History
Chief Complaint / HPI
Chief Complaint: Diarrhea
History of Present Illness:
Patient is a 69-year-old female, with past medical history of Crohn's disease which is in remission and patient is not on any medications for it for past 20 years, recently diagnosed with esophageal/stomach cancer in Aug, 2024. She has received 3
chemotherapy sessions, her last chemotherapy session was on November 07, 2024. She normally has diarrhea for a couple of days after chemotherapy and then gradually it settles down, during this time she is normally on a brat diet. This time, she had
multiple episodes about 6 episodes per day for the first 2 days after chemotherapy, and then after that she was having 1 episode of explosive diarrhea daily. Yesterday, early in the morning she went to the bathroom she had an episode of diarrhea
and then when she walked back she again had a feeling that she is going to have another diarrheal episode, patient was drained and did not had any energy so her helped her in sitting down on the chair. She was very weak and had no energy
and was not eating much during this time, she only had a small banana and 3 spoons of rice the day before.
Diarrhea was associated with abdominal pain, that was mostly in the upper quadrants of the abdomen, rates 7/10, dull ache, associated with some heartburn and reflux.
She denies any fever, chills, blood or mucus in the stools, melena, vomiting.
Past Medical History
Past Medical History: Other (Esophageal/stomach cancer diagnosed August 2024, Crohn's disease-remission, hyperlipidemia,)
Past Surgical History: Other (Hemorrhoidectomy,anal sphincterotomy, laparoscopic stomach wash to assess for any mets)
Social History
Tobacco: Former Smoker (Quit 10 years ago)
Alcohol: Occasional
Drug: None
Personal:
Living: With Family
Family History
Family History: Reviewed & Not Pertinent (No known family history of stomach cancer, colon cancer or polyps)
Allergies / Home Medications
Allergy/AdvReac Type Severity Reaction Status Date / Time
penicillin G Allergy Severe Rash Verified 11/15/24 06:15
Penicillins Allergy Severe Rash Verified 11/15/24 06:15
�Medication �Instructions �Recorded
acetaminophen 325 mg tablet 650 mg PO Q6HPRN PRN mild pain 11/15/24
(Tylenol)
dexamethasone 4 mg tablet 4 mg PO DIRECTED 11/15/24
dicyclomine 20 mg tablet 20 mg PO Q6HPRN PRN abdominal 11/15/24
cramping
ibuprofen 400 mg tablet 400 mg PO Q8HPRN PRN mild pain 11/15/24
loperamide 1 mg/7.5 mL oral liquid 2 mg PO Q6HPRN PRN dairrhea 11/15/24
loratadine 10 mg tablet (Claritin) 10 mg PO DIRECTED 11/15/24
ondansetron HCl 8 mg tablet 8 mg PO Q8HPRN PRN nausea 11/15/24
pantoprazole 40 mg tablet,delayed 40 mg PO DAILY 11/15/24
release (Protonix)
prochlorperazine maleate 10 mg 10 mg PO Q6HPRN PRN nausea 11/15/24
tablet (Compazine)
zolpidem 5 mg tablet (Ambien) 5 mg PO HS sleep 11/15/24
Review of Systems
-
All other systems: A 12 pt ROS was Negative except as stated above in HPI
Vital Signs
Temp Pulse Resp BP Pulse Ox
97.9 F 95 17 95/64 97
11/16/24 07:25 11/16/24 07:25 11/16/24 07:25 11/16/24 07:25 11/16/24 07:25
Physical Exam
Exam
General: Well Developed and Other (Appears chronically ill, pale appearing, alopecia)
Respiratory: Clear; Negative Wheezes or Rales
Cardiac: S1/S2 and Regular Rhythm
GI: Soft, Normal Bowel Sounds, Tender and Other (Laparoscopic scar carmen, stomach wash to assess any mets, no hernias)
Musculoskeletal: No Clubbing, No Cyanosis and No Edema
Neuro: Awake and Oriented
Psych: Calm
Results
WBC 0.2 10^3/uL (4.8-10.8) L* 11/16/24 07:36
Hgb 8.5 g/dL (12.0-16.0) L 11/16/24 07:36
Hct 24.1 % (37.0-47.0) L 11/16/24 07:36
MCV 85.2 fL (81.0-99.0) 11/16/24 07:36
Plt Count 20 10^3/uL (130-400) L* 11/16/24 07:36
Absolute Neuts (auto) 0.0 10^3/uL (1.4-6.5) L* 11/16/24 07:36
Sodium 128 mmol/L (135-145) L 11/16/24 07:36
Sodium Cancelled 11/16/24 07:36
Potassium 3.6 mmol/L (3.5-5.1) 11/16/24 07:36
Potassium Cancelled 11/16/24 07:36
Chloride 104 mmol/L (98-107) 11/16/24 07:36
Chloride Cancelled 11/16/24 07:36
Carbon Dioxide 21 mmol/L (22-30) L 11/16/24 07:36
Carbon Dioxide Cancelled 11/16/24 07:36
BUN 20 mg/dl (7-17) H 11/16/24 07:36
BUN Cancelled 11/16/24 07:36
Creatinine 0.8 mg/dL (0.6-1.0) 11/16/24 07:36
Creatinine Cancelled 11/16/24 07:36
Calcium 6.5 mg/dl (8.4-10.2) L* 11/16/24 07:36
Calcium Cancelled 11/16/24 07:36
Total Bilirubin 3.6 mg/dl (0.2-1.3) H 11/16/24 07:36
AST 32 U/L (14-36) 11/16/24 07:36
ALT 45 U/L (0-35) H 11/16/24 07:36
Alkaline Phosphatase 52 U/L (38-126) 11/16/24 07:36
Lipase 43 U/L (23-300) 11/15/24 06:28
Diagnostic Image Results:
Prior GI Procedures:
07/2024 in [place] as per the patient-No records
EGD:
Colonoscopy:
2016
Impression: - One 10 mm polyp in the cecum, removed with a hot
snare. Resected and retrieved.
- Diverticulosis in the sigmoid colon and in the
descending colon.
- The examination was otherwise normal.
- The distal rectum and anal verge are normal on
retroflexion view.
2013
Impression: - Non-thrombosed external hemorrhoids and perianal skin
tags found on perianal exam.
- Diverticulosis in the sigmoid colon and in the
descending colon.
- The rectum, transverse colon, ascending colon and
cecum are normal.
- The distal rectum and anal verge are normal on
retroflexion view.
- Personal history of digestive disease (unspecified)
07/2024 in [place] as per the patient-No records
Assessment / Plan
-
Impression
Esophageal/stomach cancer diagnosed in Aug, 2024-on chemotherapy, received 3 sessions-last chemotherapy session on November 07, 2024, follows up with Dr. Osuna approximately centimeter at [facility]
Crohn's disease diagnosed in 80s-not on any medications for more than 20 years-in remission
History of chronic GERD
History of chemotherapy induced diarrhea
Neutropenic
History of hemorrhoidectomy
History of anal sphincterotomy
UTI-was on antibiotics Macrobid-did not receive last dose yesterday
Recommendations
Check stool studies including C. difficile and norovirus and stool cultures
Check fecal calprotectin
Check CRP and ESR
Adequate hydration and pain management
Try to get records from [facility] regarding her GI issues
Neutropenic precautions
Patient has no appetite at this time-advance diet as tolerated
-
-
Thank you for consultation and allowing me to participate in the patient's care. Please call the [facility] GI physician during the after hours with any questions or concerns.
[2024-11-16 11:15] VITALS: BP 94/61
[2024-11-16 12:23] LABS: C-Reactive Protein > 270.00 mg/L (0.0-10.00)
[2024-11-16] MEDS: FLUSH (NSS) 1 FLUSH IV (14:50)
[2024-11-16] MEDS: MYLICON 80 MG PO ×2 (15:30→23:44)
[2024-11-16 15:35] VITALS: BP 102/60
[2024-11-16] MEDS: CALCIUM GLUCONATE 280 MG IV (16:31)
[2024-11-16] MEDS: ZOFRAN 8 MG PO (18:21)
[2024-11-16 19:46] VITALS: BP 114/66
[2024-11-16] MEDS: NSS (PRESERVATIVE FREE) 10 ML IV (23:04)
[2024-11-16] MEDS: PROTONIX IV 40 MG IV (23:05)
[2024-11-16 23:07] VITALS: BP 113/58
[2024-11-16] MEDS: AMBIEN 5 MG PO (23:08)
[2024-11-16] MEDS: COMPAZINE 5 MG IV (23:48)
--- NOTE | 2024-11-16 23:50 | PTCARENOTE ---
Pt continues w/nausea. Small episode of emesis. POSTAL DELIVERY OFFICER covering contacted for 2nd line antiemetic (pt does have compazine on home med list) Electronic orders received for IV compazine (refer to MAR). PRN simethicone also given. Family at bedside.
[2024-11-17 03:03] VITALS: BP 102/58
[2024-11-17] MEDS: STERILE WATER FOR INJECTION 10 ML IV ×3 (03:47→18:01)
[2024-11-17] MEDS: FLAGYL 500 MG 100 IV ×3 (03:49→18:01)
[2024-11-17] MEDS: MAXIPIME 2000 MG IV ×3 (03:49→18:01)
[2024-11-17 05:58] LABS: Hematocrit 22.8 % (37.0-47.0); Hemoglobin 8.1 g/dL (12.0-16.0); Mean Corp Hgb Conc. 35.5 g/dL (33.0-37.0); Mean Corpuscular Volume 84.4 fL (81.0-99.0); Nucleated Red Blood Cells % 0 %; Platelet Count 25 10^3/uL (130-400); Red Cell Dist. Width 13.9 % (11.5-14.5)
[2024-11-17] MEDS: SODIUM BICARBONATE 1075 MEQ IV (05:59)
[2024-11-17] MEDS: DILAUDID 0.25 MG IV ×4 (05:59→22:07)
[2024-11-17 06:05] LABS: ALT (SGPT) 42 U/L (0-35); AST (SGOT) 29 U/L (14-36); Albumin 2.2 g/dl (3.5-5.0); Alkaline Phosphatase 51 U/L (38-126); Blood Urea Nitrogen 19 mg/dl (7-17); Calcium 6.9 mg/dl (8.4-10.2); Carbon Dioxide 22 mmol/L (22-30); Chloride 101 mmol/L (98-107); Estimated Creatinine Clearance 56 ml/min; Glucose 88 mg/dl (70-99); Magnesium 1.9 mg/dl (1.6-2.3); Potassium 3.4 mmol/L (3.5-5.1); Sodium 128 mmol/L (135-145); Total Protein 4.3 g/dl (6.3-8.2); eGFR > 60.00
[2024-11-17] MEDS: ZOFRAN 4 MG IV (06:16)
--- NOTE | 2024-11-17 06:18 | PTCARENOTE ---
Critical lab values communicated to PETER covering. Electronic orders received for K+ rider and Calcium gluconate. VAT RN contacted for PIV for riders.
[2024-11-17] MEDS: CALCIUM GLUCONATE 100 IV (06:48)
[2024-11-17] MEDS: KCL 270 MEQ IV (06:48)
[2024-11-17 07:22] VITALS: BP 107/61
--- NOTE | 2024-11-17 08:38 | W.PN.ONC2 ---
Today's Communication / Plan
-
daily CBC
symptoms support
will need treatment delay and likely dose adjustments in subsequent cycles with her primary oncologist
at bedside provided updates and questions answered
Impression
Impression
a/w Neutropenic enterocolitis
stage III GEJ diagnosed 08/2024 follows at [facility]
Gastric cancer on FLOT + Durvalumab chemotherapy with LA GCSF, last dose 11/07
Pancytopenia secondary to antineoplastic therapy
History of Crohn's disease
hyponatremia
hypocalcemia
Plan
Plan
Supportive care, pain management, antiemetics
neutropenic precautions
avoid NSAIDS, antiplatelet, anticoagulation with platelet count <50,000
transfuse Hgb <7 or as needed for sxs anemia, transfuse platelet count <10,000, <20,000 if febrile, <50,000 if bleeding
GI following
neprhology following
Subjective/Objective
Subjective
afebrile, no hypoxia
using hydromorphone prn abdominal pain
using ondansetron prn nausea
no BM since admission
Vital Signs:
Vital Signs
Temp Pulse Resp BP Pulse Ox
99.5 F 91 20 107/61 100
11/17/24 07:22 11/17/24 07:22 11/17/24 07:22 11/17/24 07:22 11/17/24 07:22
Lab Results:
Laboratory Data
WBC 0.3 10^3/uL (4.8-10.8) L* 11/17/24 05:23
Hgb 8.1 g/dL (12.0-16.0) L 11/17/24 05:23
Plt Count 25 10^3/uL (130-400) L* D 11/17/24 05:23
eGFR > 60.00 11/17/24 05:23
Physical Exam
HEENT: Moist Mucous Membranes; No Jaundice
Cardiology: Normal Sinus Rhythm
Pulmonary: Clear
GI: Soft and Other (diffusely TTP)
Extremities: Pulses Present; No Edema
Neuro: Non Focal
[2024-11-17] MEDS: NSS (PRESERVATIVE FREE) 10 ML IV ×2 (09:32→21:51)
[2024-11-17] MEDS: PROTONIX IV 40 MG IV ×2 (09:32→21:51)
[2024-11-17] MEDS: COMPAZINE 5 MG IV (09:39)
[2024-11-17 11:14] VITALS: BP 116/60
[2024-11-17] MEDS: REGLAN 10 MG IV (12:46)
--- NOTE | 2024-11-17 12:52 | W.PN.NEPH.PH ---
Today's Communication / Plan
-
Discontinue bicarbonate
Start lactated ringer
Assessment/Plan
-
Impression:
Hyponatremia
NG Metabolic Acidosis (AG 3)
Hypocalcemia
Diarrhea/abdominal pain/enterocolitis
History of stomach cancer with recent chemotherapy at [place] 1 week prior (FLOT + Durvalumab)
History of Crohn's disease
History of stroke
Pancytopenia/neutropenia
Plan:
Hyponatremia:
-Likely a function of volume depletion and impaired solute intake, low MAP we will also escalate ADH
-Obtain urine osmolality,urine sodium
-Hypotension likely a function of compromised effective circulating volume due to hypoalbuminemia and diarrhea
Nongap metabolic acidosis:
- Likely a function of continued GI losses
Discontinue IV fluid with bicarbonate and start lactated ringer
Hypocalcemia:
- Obtain intact PTH pending
-Follow-up ionized calcium in a.m.
-
-
Date of Service: November 17, 2024
CC / HPI / ROS
-
Chief Complaint:
Acute kidney injury and
History of Present Illness:
Diarrhea colitis history of stomach cancer with mild ENMA and hyponatremia and hypocalcemia with low albumin
Review of Systems:
Mild abdominal pain with currently with constipation diarrhea has resolved
No chest pain or shortness of breath
Labs
-
Labs:
WBC 0.3 10^3/uL (4.8-10.8) L* 11/17/24 05:23
RBC 2.70 10^6/uL (4.20-5.40) L 11/17/24 05:23
Hgb 8.1 g/dL (12.0-16.0) L 11/17/24 05:23
Hct 22.8 % (37.0-47.0) L 11/17/24 05:23
Plt Count 25 10^3/uL (130-400) L* D 11/17/24 05:23
Sodium 128 mmol/L (135-145) L 11/17/24 05:23
Potassium 3.4 mmol/L (3.5-5.1) L 11/17/24 05:23
Chloride 101 mmol/L (98-107) 11/17/24 05:23
Carbon Dioxide 22 mmol/L (22-30) 11/17/24 05:23
BUN 19 mg/dl (7-17) H 11/17/24 05:23
Creatinine 0.9 mg/dL (0.6-1.0) 11/17/24 05:23
eGFR > 60.00 11/17/24 05:23
Glucose 88 mg/dl (70-99) 11/17/24 05:23
Calcium 6.9 mg/dl (8.4-10.2) L* 11/17/24 05:23
Calcium 6.9 mg/dl (8.4-10.2) L* 11/17/24 05:23
Albumin 2.2 g/dl (3.5-5.0) L 11/17/24 05:23
Physical Exam
-
Vital Signs:
Vital Signs
Temp Pulse Resp BP Pulse Ox
99 F 94 20 116/60 95
11/17/24 11:14 11/17/24 11:14 11/17/24 11:14 11/17/24 11:14 11/17/24 11:14
Respiratory:: Bilateral: CTA
Abdomen:: Tender
Bowel Sounds:: Decreased
Extremity Edema:: +1: Bilateral:
--- NOTE | 2024-11-17 13:34 | W.PN.HOSP.TC ---
Today's Communication/Plan
-
f/u CBC
changed zofran to compazine
maintain on abx
trial of CL diet
Assessment / Plan
Assessment / Plan
69-year-old female with history of stomach cancer (undergoing chemotherapy at [place] -- last chemotherapy was 1 week prior -- 3 treatments so far), TIA/CVA, Crohn's Disease, hyperlipidemia, OA, allergic to penicillin, total left knee replacement
and rotator cuff repair presented with weakness and near syncopal episode. Prior to arrival, patient got up to go to the bathroom. On the way back to the bed, felt she was going to have diarrhea and passed out, she then had an episode of diarrhea.
Patient has since been feeling very fatigued, nauseous, and multiple episodes of diarrhea since her last chemotherapy about 1 week prior. Per patient's family, she has not had anything to eat in 5 days. Patient follows with [facility], went to their
facility on Tuesday November 12, 2024, due to her symptoms. She was given IV fluids and had laboratory showing platelet count of 50, WBC 5 and sodium in the upper 130s. Patient denied fever, chest pain or difficulty breathing. She has generalized
abdominal discomfort.
Neutropenic enterocolitis
Nausea/vomiting
Diarrhea
-ER provider discussed with [facility] oncology Dr. Live Song - recommend neutropenic precautions, and broad spectrum abx for her neutropenic colitis.
-Suspected from infectious enteritis/infectious colitis
-Continue Cefepime and Flagyl
-Stool studies
-Blood cultures pending
- Trial of clear liquid diet if patient able to tolerate
- Patient usually takes Zofran as needed for nausea and vomiting changed to Compazine on patient request.
Stomach Cancer
-Patient's oncologist (Dr. Osuna) called emergency room physician, Dr. Joselin Reynolds, who spoke directly to Dr. Osuna. Dr. Osuna said if he could be of service during the admission his number is [phone].
Recent UTI
-Denied any further UTI symptoms as of 11/15/24
-Did not finish Macrobid given hospitalization
-On antibiotics as above
Non-Anion Gap Metabolic Acidosis - resolved
-Maintain on bicarb infusion per nephro
Hypotension
-Likely from low albumin and diarrhea
Hypocalcemia
- Got 2 g of calcium today
- Follow-up PTH
Near Syncope prior to arrival
-Likely from dehydration and hypovolemia
Neutropenia
Pancytopenia
Thrombocytopenia
-Neutropenic precautions
-No platelets transfusion unless platelets down to 10
-If patient is bleeding, will also need to transfuse platelets
-Regular products for platelets are fine.
Hypovolemic Acute Hyponatremia
-Per records, patient's sodium was in upper 130s, 2 days ago
-Normal Saline bolus given in the ER
-PO FR 40 ounces
-Replacement IV fluids as above
History of Crohn's Disease -- Oncologist consulted gastroenterology who said that no active Crohn's Disease currently
Osteoarthritis
History of Basal Cell Carcinoma
History of Colon Polyp
History of Delayed Emergence from Anesthesia
History of Esophageal Ulcer
History of Hiatal Hernia
Osteoporosis
DVT Prophylaxis: SCDs. No chemical DVT prophylaxis given thrombocytopenia.
Code Status: Full Code
Anticipated Discharge: > 48 hours
Subjective/Interval History
-
Date of Service: November 17, 2024
Continues to have significant nausea and vomiting
Afebrile overnight
No other reported problems
Objective Data
-
Labs:
Laboratory Results
11/17/24 11/17/24
05:23 05:23
WBC 0.3 L*
Hgb 8.1 L
Hct 22.8 L
Plt Count 25 L* D
Sodium 128 L
Potassium 3.4 L
Chloride 101
Carbon Dioxide 22
BUN 19 H
Creatinine 0.9
Glucose 88
Calcium 6.9 L* 6.9 L*
Total Bilirubin 4.1 H
AST 29
ALT 42 H
Alkaline Phosphatase 51
Vital Signs:
Vital Signs
Temp Pulse Resp BP Pulse Ox
99 F 94 20 116/60 95
11/17/24 11:14 11/17/24 11:14 11/17/24 11:14 11/17/24 11:14 11/17/24 11:14
I&O
11/16/24 11/17/24 11/18/24
06:59 06:59 06:59
Intake Total 1850 / 1850 1100 / 1100
Output Total 350 / 350
Balance 1500 / 1500 1100 / 1100
Review of Systems
-
Respiratory: Reports No Symptoms
Cardiac: Reports No Symptoms
Abdomen/GI: Reports Nausea and Vomiting; Denies Abdominal Pain
Physical Exam
-
General: No Apparent Distress and Comfortable
HEENT: Negative Oxygen
Respiratory: Clear to Auscultation
Cardiac: Regular Rhythm and S1/S2; Negative Murmur or Rub
GI: Soft, Nontender and Nondistended
Musculoskeletal: No Edema
Neuro: Awake, Alert, Oriented, No Motor Deficits and Nonfocal/Grossly Intact
Psych: Calm
--- NOTE | 2024-11-17 14:07 | W.PN.GI.CBS2 ---
Today's Communication / Plan
-
Adv to CLD and as tolerates
C/w supportive measures as above
No new GI recs will sign off please call for ?
Assessment / Plan
-
Tash Wood is a 69yo W with stage III GEJ diagnosed 08/2024 follows at [facility] on chemotherapy last dose 11/07 who was admitted for weakness and diarrhea. GI consulted for remote history of Crohn's disease. She tells me that crohn's was diagnosed
in her 40s. 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 She denies being on any treatment for her Crohns. She follows with Dr Calhoun at [facility] in [place]. Her last Cscope was 2016 at with polyps and tics.
TI not intubated. She is generally constipated on miralax daily for many years. However since starting chemo she is having more diarrhea that is nonbloody. Vitals AF hypotensive BP 94/61. abdomen TTP with guarding. Labs reviewed severe
neutropenia and anemia. CTAP with IV contrast. Thickening redundant sigmoid colon. R lobe hepatic cyst, small HH.
Impression
- Neutropenic enterocolitis
- H/o Crohn's in remission for >10yrs not on treatment
- Stage III GEJ cancer diagnosed 08/2024 managed at [facility]
- Weight loss
- H/o hemorrhoidectomy and sphincterotomy
Recommendation
- Adv to CLD today
- IVF
- C/w abx
- Blood cultures thus far NGTD
- Await stool studies but no BM on admission to collect
- No evidence that crohn's is active currently
- Monitor stool output
- Serial abd exam
- Her chemo is on hold
- C/w PPI
At this point no new GI recs will sign off please call for ? Her GI is at [place]
Subjective
Subjective
Date of Service: November 17, 2024
No BM since admission. No stool studies collected. Abd pain still 7 out of 10. Mild nausea without vomiting
Objective
Data Reviewed
Laboratory Data:
Laboratory Results
11/17/24 05:23
11/17/24 05:23
Laboratory Results
Magnesium 1.9 mg/dl (1.6-2.3) 11/17/24 05:23
Total Bilirubin 4.1 mg/dl (0.2-1.3) H 11/17/24 05:23
AST 29 U/L (14-36) 11/17/24 05:23
ALT 42 U/L (0-35) H 11/17/24 05:23
Alkaline Phosphatase 51 U/L (38-126) 11/17/24 05:23
Lipase 43 U/L (23-300) 11/15/24 06:28
Vital Signs and I&O:
Vital Signs
Temp Pulse Resp BP Pulse Ox
99 F 94 20 116/60 95
11/17/24 11:14 11/17/24 11:14 11/17/24 11:14 11/17/24 11:14 11/17/24 11:14
I&O
11/16/24 11/17/24 11/18/24
06:59 06:59 06:59
Intake Total 1850 / 1850 1100 / 1100
Output Total 350 / 350
Balance 1500 / 1500 1100 / 1100
Physical Exam
Physical Exam
GEN: No acute distress, chronically ill appearing bald
HEENT: anicteric, extraocular movements intact, clear oropharynx without exudates
GI: soft, mildly distended, diffusely tender to palpation, normal active bowel sounds, no hepatosplenomegaly
EXT: warm, well perfused, trace edema bilaterally
NEURO: AAOx3, non-focal
[2024-11-17] MEDS: LR 1000 IV ×2 (14:35→22:02)
[2024-11-17] MEDS: SODIUM BICARBONATE IV (14:38)
[2024-11-17 15:14] VITALS: BP 118/61
--- NOTE | 2024-11-17 15:58 | PN.CDI ---
CDI
- -
CDI:
Physician Documentation Request
Admit Date: 11/15/24 13:08
Dear Doctor Elpidio,
Please review the following and provide your response in the progress notes.
Clinical Indicators:
Laboratory Tests
11/15/24 11/16/24 11/17/24
06:28 07:36 05:23
Total Bilirubin 2.9 H 3.6 H 4.1 H
Direct Bilirubin 2.0 H
Based on the above, please clarify in the progress notes, the appropriate diagnosis, if significant, that supports the above abnormalities and additional evaluation, monitoring and/or treatment rendered:
Elevated total bilirubin
Abnormal lab value, clinically insignificant
Other(please specify)
Use of terms such as suspected, likely, concern for, or probable (associated with a specific diagnosis that is being evaluated, monitored, or treated as if it exists) are acceptable and can be coded in the inpatient setting, when documented at the
time of discharge.
Thank you,
Tash Ansari RN BSN CCDS
CDI Specialist
Please contact via tiger text
Please use your independent medical judgment in providing your response.
[2024-11-17] MEDS: COMPAZINE 10 MG IV (18:01)
[2024-11-17] MEDS: MYLICON 80 MG PO (18:19)
--- NOTE | 2024-11-17 18:45 | PTCARENOTE ---
Pt complaining of persistent nausea throughout shift. Compazine ordered to replace zofran because pt stated that it provides better relief. After 5mg IV compazine administered with no relief, reglan ordered and administered. Pt continues to complain
of severe pain in abdomen. Dilaudid administered to pt prn throughout shift. @bedside to assist with pt's needs. Pt not tolerating clear liquid diet- period of emesis after PO intake of clears. Simethicone tablet administered after pt
complaining of belching. POC ongoing.
[2024-11-17 19:46] VITALS: BP 102/51
[2024-11-17] MEDS: AMBIEN 5 MG PO (21:51)
[2024-11-17 23:10] VITALS: BP 117/58
--- NOTE | 2024-11-18 02:28 | DOWNTIME ---
There was a [employer] Client Lab Director Downtime on 11/18/2024 from 0100 to 11/18/2024 at 0220. Downtime documentation of patient's care, including medication administrations, has been reconciled in the electronic record per guidelines. Refer to the
patient's paper chart under the miscellaneous tab to see printed paper medication records and downtime forms.
[2024-11-18] MEDS: FLAGYL 500 MG 100 IV ×3 (02:46→17:09)
[2024-11-18] MEDS: STERILE WATER FOR INJECTION 10 ML IV ×3 (02:46→17:09)
[2024-11-18] MEDS: MAXIPIME 2000 MG IV ×3 (02:46→17:09)
[2024-11-18 02:51] VITALS: BP 124/54
[2024-11-18] MEDS: DILAUDID 0.25 MG IV ×2 (02:58→07:03)
[2024-11-18 05:01] LABS: Hematocrit 22.4 % (37.0-47.0); Hemoglobin 7.7 g/dL (12.0-16.0); Mean Corp Hgb Conc. 34.4 g/dL (33.0-37.0); Mean Corpuscular Volume 86.5 fL (81.0-99.0); Platelet Count 43 10^3/uL (130-400); Red Cell Dist. Width 14.5 % (11.5-14.5)
[2024-11-18 05:30] LABS: ALT (SGPT) 32 U/L (0-35); AST (SGOT) 22 U/L (14-36); Albumin 2.1 g/dl (3.5-5.0); Alkaline Phosphatase 59 U/L (38-126); Blood Urea Nitrogen 28 mg/dl (7-17); Calcium 6.8 mg/dl (8.4-10.2); Carbon Dioxide 25 mmol/L (22-30); Chloride 102 mmol/L (98-107); Estimated Creatinine Clearance 50 ml/min; Glucose 109 mg/dl (70-99); Magnesium 2.1 mg/dl (1.6-2.3); Potassium 3.4 mmol/L (3.5-5.1); Sodium 129 mmol/L (135-145); Total Protein 4.1 g/dl (6.3-8.2); eGFR > 60.00
[2024-11-18] MEDS: LR 1000 IV ×2 (06:36→14:38)
[2024-11-18] MEDS: KCL 270 MEQ IV (06:38)
[2024-11-18] MEDS: CALCIUM GLUCONATE 100 IV (07:05)
[2024-11-18 07:39] LABS: Nucleated Red Blood Cells % 0 %
[2024-11-18 07:46] VITALS: BP 118/63
[2024-11-18] MEDS: NSS (PRESERVATIVE FREE) 10 ML IV ×2 (08:59→20:59)
[2024-11-18] MEDS: PROTONIX IV 40 MG IV ×2 (08:59→20:59)
[2024-11-18] MEDS: COMPAZINE 10 MG IV ×3 (09:16→22:41)
--- NOTE | 2024-11-18 09:55 | W.PN.ONC2 ---
Today's Communication / Plan
-
daily CBC with differential
symptoms support
will need treatment delay and likely dose adjustments in subsequent cycles with her primary oncologist since next dose due this Sunday
Discussed with hospitalist and at bedside
Impression
Impression
a/w Neutropenic enterocolitis
stage III GEJ diagnosed 08/2024 follows at [facility]
Gastric cancer on FLOT + Durvalumab chemotherapy with LA GCSF, last dose 11/07
Pancytopenia secondary to antineoplastic therapy -counts starting to improve
History of Crohn's disease
hyponatremia
hypocalcemia
constipation
Plan
Plan
Supportive care, pain management, antiemetics
neutropenic precautions
avoid NSAIDS, antiplatelet, anticoagulation with platelet count <50,000
transfuse Hgb <7 or as needed for sxs anemia, transfuse platelet count <10,000, <20,000 if febrile, <50,000 if bleeding
GI following
neprhology following
Subjective/Objective
Subjective
using hydromorphone prn abdominal pain
using Compazine and metoclopramide prn nausea
no BM since admission
poor oral intake, though able to tolerate a lemon ice this morning which she feels is an improvement
denies overt bleeding
feeling very tired today
Vital Signs:
Vital Signs
Temp Pulse Resp BP Pulse Ox
98.4 F 88 16 118/63 94
11/18/24 07:46 11/18/24 07:46 11/18/24 07:46 11/18/24 07:46 11/18/24 07:46
Lab Results:
Laboratory Data
WBC 1.5 10^3/uL (4.8-10.8) L* 11/18/24 04:30
Hgb 7.7 g/dL (12.0-16.0) L 11/18/24 04:30
Plt Count 43 10^3/uL (130-400) L D 11/18/24 04:30
eGFR > 60.00 11/18/24 04:30
Physical Exam
HEENT: Moist Mucous Membranes; No Jaundice
Cardiology: Normal Sinus Rhythm
Pulmonary: Clear
GI: Soft and Other (diffuse TTP x 4 quad)
Extremities: Pulses Present; No Edema
Neuro: Non Focal
[2024-11-18 11:37] VITALS: BP 119/61
--- NOTE | 2024-11-18 13:39 | W.PN.NEPH.PH ---
Today's Communication / Plan
-
Lactated Ringer's decreased rate
Assessment/Plan
-
Impression:
Hyponatremia
NG Metabolic Acidosis (AG 3)
Hypocalcemia
Diarrhea/abdominal pain/enterocolitis
History of stomach cancer with recent chemotherapy at [facility] 1 week prior (FLOT + Durvalumab)
History of Crohn's disease
History of stroke
Pancytopenia/neutropenia
Plan:
Hyponatremia:
-Likely a function of volume depletion and impaired solute intake, low MAP we will also escalate ADH
Hypotension likely a function of compromised effective circulating volume due to hypoalbuminemia and diarrhea
Metabolic acidosis nongap improved with bicarbonate
Hypocalcemia:
- Obtain intact PTH pending
Calcium rider
Check vitamin D level ordered
Decrease rate of lactated Ringer's to 75 cc/h
-
-
Date of Service: November 18, 2024
CC / HPI / ROS
-
Chief Complaint:
Acute kidney injury and
History of Present Illness:
Diarrhea colitis history of stomach cancer with mild ENMA and hyponatremia and hypocalcemia with low albumin
Review of Systems:
Continues to have abdominal pain
No chest pain or shortness of breath
Labs
-
Labs:
WBC 1.5 10^3/uL (4.8-10.8) L* 11/18/24 04:30
RBC 2.59 10^6/uL (4.20-5.40) L 11/18/24 04:30
Hgb 7.7 g/dL (12.0-16.0) L 11/18/24 04:30
Hct 22.4 % (37.0-47.0) L 11/18/24 04:30
Plt Count 43 10^3/uL (130-400) L D 11/18/24 04:30
Sodium 129 mmol/L (135-145) L 11/18/24 04:30
Potassium 3.4 mmol/L (3.5-5.1) L 11/18/24 04:30
Chloride 102 mmol/L (98-107) 11/18/24 04:30
Carbon Dioxide 25 mmol/L (22-30) 11/18/24 04:30
BUN 28 mg/dl (7-17) H 11/18/24 04:30
Creatinine 1.0 mg/dL (0.6-1.0) 11/18/24 04:30
eGFR > 60.00 11/18/24 04:30
Glucose 109 mg/dl (70-99) H 11/18/24 04:30
Calcium 6.8 mg/dl (8.4-10.2) L* 11/18/24 04:30
Albumin 2.1 g/dl (3.5-5.0) L 11/18/24 04:30
Physical Exam
-
Vital Signs:
Vital Signs
Temp Pulse Resp BP Pulse Ox
98.1 F 86 17 119/61 91
11/18/24 11:37 11/18/24 11:37 11/18/24 11:37 11/18/24 11:37 11/18/24 11:37
Respiratory:: Bilateral: CTA
Abdomen:: Tender
Bowel Sounds:: Decreased
Extremity Edema:: +1: Bilateral:
--- NOTE | 2024-11-18 14:05 | W.PN.HOSP.TC ---
Today's Communication/Plan
-
see note
Assessment / Plan
Assessment / Plan
69-year-old female with history of stomach cancer (undergoing chemotherapy at [facility] -- last chemotherapy was 1 week prior -- 3 treatments so far), TIA/CVA, Crohn's Disease, hyperlipidemia, OA, allergic to penicillin, total left knee replacement
and rotator cuff repair presented with weakness and near syncopal episode. Prior to arrival, patient got up to go to the bathroom. On the way back to the bed, felt she was going to have diarrhea and passed out, she then had an episode of diarrhea.
Patient has since been feeling very fatigued, nauseous, and multiple episodes of diarrhea since her last chemotherapy about 1 week prior. Per patient's family, she has not had anything to eat in 5 days. Patient follows with [facility], went to their
facility on Tuesday November 12, 2024, due to her symptoms. She was given IV fluids and had laboratory showing platelet count of 50, WBC 5 and sodium in the upper 130s. Patient denied fever, chest pain or difficulty breathing. She has generalized
abdominal discomfort.
Neutropenic enterocolitis
Nausea/vomiting
Diarrhea
-ER provider discussed with [facility] oncology Dr. Live Song - recommend neutropenic precautions, and broad spectrum abx for her neutropenic colitis.
-Suspected from infectious enteritis/infectious colitis
-Continue Cefepime and Flagyl
-Blood cs neg. Not having any BM in the hospital
-Abd xr did not show any signs of ileus/sbo, abd exam remains relatively benign.
-Advanced to FL diet
-QTc 445 ms, reglan scheduled orderd with prn compazine
Stomach Cancer
-Patient's oncologist (Dr. Osuna) called emergency room physician, Dr. Joselin Reynolds, who spoke directly to Dr. Osuna. Dr. Osuna said if he could be of service during the admission his number is [phone].
Recent UTI
-Denied any further UTI symptoms as of 11/15/24
-Did not finish Macrobid given hospitalization
-On antibiotics as above
Non-Anion Gap Metabolic Acidosis - resolved
-Maintain on bicarb infusion per nephro
Hypotension - Improved
-Likely from low albumin and diarrhea
Hypocalcemia
- Got 2 g of ca
- Follow-up PTH
Near Syncope prior to arrival
-Likely from dehydration and hypovolemia
Neutropenia
Pancytopenia
Thrombocytopenia
-Neutropenic precautions
-No platelets transfusion unless platelets down to 10
-If patient is bleeding, will also need to transfuse platelets
-Regular products for platelets are fine.
Acute Hyponatremia
- getting close to baseline, presumed with no to low solute intake and pre-admission diarrhea related
-Per records, patient's sodium was in upper 130s, 2 days ago
-Normal Saline bolus given in the ER
-PO FR 40 ounces
History of Crohn's Disease -- Oncologist consulted gastroenterology who said that no active Crohn's Disease currently
Osteoarthritis
History of Basal Cell Carcinoma
History of Colon Polyp
History of Delayed Emergence from Anesthesia
History of Esophageal Ulcer
History of Hiatal Hernia
Osteoporosis
DVT Prophylaxis: SCDs. No chemical DVT prophylaxis given thrombocytopenia.
Code Status: Full Code
Anticipated Discharge: 24 - 48 hours
Subjective/Interval History
-
Date of Service: November 18, 2024
continues to have nausea/vomiting
have abd discomfort
no reported BM
Objective Data
-
Labs:
Laboratory Results
11/18/24
04:30
WBC 1.5 L*
Hgb 7.7 L
Hct 22.4 L
Plt Count 43 L D
Sodium 129 L
Potassium 3.4 L
Chloride 102
Carbon Dioxide 25
BUN 28 H
Creatinine 1.0
Glucose 109 H
Calcium 6.8 L*
Total Bilirubin 4.2 H
AST 22
ALT 32
Alkaline Phosphatase 59
Vital Signs:
Vital Signs
Temp Pulse Resp BP Pulse Ox
98.1 F 86 17 119/61 91
11/18/24 11:37 11/18/24 11:37 11/18/24 11:37 11/18/24 11:37 11/18/24 11:37
I&O
11/17/24 11/18/24 11/19/24
06:59 06:59 06:59
Intake Total 1100 / 1100 480 / 480
Balance 1100 / 1100 480 / 480
Review of Systems
-
Respiratory: Reports No Symptoms
Cardiac: Reports No Symptoms
Abdomen/GI: Reports Nausea and Vomiting; Denies Abdominal Pain
Physical Exam
-
General: No Apparent Distress and Comfortable
HEENT: Negative Oxygen
GI: Soft, Nontender and Normal Bowel Sounds (Decreased bowel sounds)
Musculoskeletal: No Edema
Neuro: Awake, Alert, Oriented, No Motor Deficits and Nonfocal/Grossly Intact
Psych: Calm
[2024-11-18] MEDS: SENNA SYRUP 8.8 MG PO (14:35)
[2024-11-18] MEDS: REGLAN 5 MG IV ×2 (14:35→21:10)
[2024-11-18 15:51] VITALS: BP 117/54
[2024-11-18] MEDS: ULTRAM 25 MG PO (16:08)
[2024-11-18] MEDS: ROXICODONE 10 MG PO (17:42)
--- NOTE | 2024-11-18 18:11 | PTCARENOTE ---
Pt given compazine 10 minutes before oxycodone 10 mg. Pt vomited green bile, pill not found. Pt continues to be nauseous, expiratory wheeze heard. Dr. Magallanes aware.
--- NOTE | 2024-11-18 18:31 | W.PN.UPDATE ---
Update Note
Progress Note Update
Patient apparently continues to have significant bilious vomiting
Abdominal x-ray in the morning rule out any obstructive issue
Patient has a GE junction mass and not appropriate for a blind NG tube placement. Will need to discuss with GI different way of gastric decompressing if patient continues to have nausea and vomiting.
Patient wheezing on exam likely have aspiration pneumonitis, already on cefepime/Flagyl for GI coverage should cover for aspiration pneumonia as well.
Unfortunately patient requiring pain medication and unable to tolerate oxycodone. Will try tramadol.
With combination of sedative medication and constant vomiting patient did risk of aspiration and cardiopulmonary arrest.
If patient started getting further hypoxic will require transfer to IMU for closer monitoring
--- NOTE | 2024-11-18 22:30 | PTCARENOTE ---
Patient has not had bowel movement in 3 days. She is feeling nauseous and abdomen is tender to palpation and with movement. Patient stated she would like a stool softener to help her move her bowels. URIEL Goss notified. Order for Senokot
placed. Patient states she is too nauseous to take the pill now and would like more Compazine. PRN Compazine q6 not yet available to give until 23:24. URIEL Goss made aware. URIEL Goss discussed with pharmacy and both agreed to give
Compazine early. See MAR. Will continue to monitor.
[2024-11-18 23:43] VITALS: BP 115/61
[2024-11-18] MEDS: SENOKOT 8.6 MG PO (23:51)
[2024-11-19] MEDS: MAXIPIME 2000 MG IV ×3 (03:12→17:08)
[2024-11-19] MEDS: STERILE WATER FOR INJECTION 10 ML IV ×3 (03:12→17:08)
[2024-11-19] MEDS: LR 1000 IV ×2 (03:13→17:05)
[2024-11-19] MEDS: FLAGYL 500 MG 100 IV ×3 (03:13→17:08)
[2024-11-19] MEDS: REGLAN 5 MG IV ×3 (05:45→22:00)
[2024-11-19 05:57] LABS: Hematocrit 23.8 % (37.0-47.0); Hemoglobin 8.2 g/dL (12.0-16.0); Mean Corp Hgb Conc. 34.5 g/dL (33.0-37.0); Mean Corpuscular Volume 86.9 fL (81.0-99.0); Platelet Count 60 10^3/uL (130-400); Red Cell Dist. Width 15.1 % (11.5-14.5)
[2024-11-19 06:13] LABS: ALT (SGPT) 29 U/L (0-35); AST (SGOT) 31 U/L (14-36); Albumin 2.1 g/dl (3.5-5.0); Alkaline Phosphatase 76 U/L (38-126); Blood Urea Nitrogen 35 mg/dl (7-17); Calcium 7.2 mg/dl (8.4-10.2); Carbon Dioxide 22 mmol/L (22-30); Chloride 103 mmol/L (98-107); Estimated Creatinine Clearance 56 ml/min; Glucose 109 mg/dl (70-99); Potassium 3.5 mmol/L (3.5-5.1); Sodium 129 mmol/L (135-145); Total Protein 4.2 g/dl (6.3-8.2); eGFR > 60.00
[2024-11-19 06:29] LABS: Vitamin D, 25-OH*** 18.2 ng/mL (30-80)
[2024-11-19 07:30] LABS: Absolute Neutrophils -Man Diff 5.6 10^3/uL (1.4-6.5); Platelets Checked Yes
--- NOTE | 2024-11-19 07:30 | W.PN.ONC2 ---
Today's Communication / Plan
-
Not sure why recovery is so delayed.
Imaging (both CT scan and abd xray) relatively non specific.
Elevated bilirubin noted; no evidence of transaminitis.
Does not appear to be likely related to her malignancy nor her FLOT/Durvalumab treatment but we had to broaden our differential based on the somewhat atypical nature of her delayed recovery.
For now we will continue supportive care.
Long update of and son both at bedside.
Reassurance that Dr. Osuna would not have anything additional to add
Impression
Impression
a/w Neutropenic enterocolitis -neutropenia resolved
stage III GEJ diagnosed 08/2024 follows at [facility] -Dr. Billy Osuna primary oncologist
Gastric cancer on FLOT + Durvalumab chemotherapy with LA GCSF, last dose 11/07
Pancytopenia secondary to antineoplastic therapy -WBC now normal
History of Crohn's disease -currently inactive
Hyperbilirubinemia
Plan
Plan
Neutropenia has improved significantly and is now normal.
Neutropenic enterocolitis should therefore be improved. Curious whether this is some post narcotic toxicity?
Sounds like GI is being reconsulted.
From an oncology perspective, unlikely to be chemotherapy toxicity (this far out, > 2 weeks) and so far no evidence of autoimmune Durvalumab toxicity.
Subjective/Objective
Chief Complaint
[facility] oncology follow-up
Subjective
Unfortunately, patient still appears to remain relatively ill. Still having pretty significant vomiting. GI has been contacted for reevaluation. She seems to have had pretty significant exacerbation of nausea/vomiting after a dose of oxycodone.
Vital Signs:
Vital Signs
Temp Pulse Resp BP Pulse Ox
97.9 F 90 12 115/61 93
11/18/24 23:43 11/18/24 23:43 11/18/24 23:43 11/18/24 23:43 11/18/24 23:43
Lab Results:
Laboratory Data
WBC 8.7 10^3/uL (4.8-10.8) 11/19/24 05:34
Hgb 8.2 g/dL (12.0-16.0) L 11/19/24 05:34
Plt Count 60 10^3/uL (130-400) L D 11/19/24 05:34
eGFR > 60.00 11/19/24 05:33
Physical Exam
Remains lethargic and ill-appearing. Both and son are at bedside.
HEENT: No Jaundice
Cardiology: S1 and S2
Pulmonary: Clear
[2024-11-19 07:31] LABS: Anisocytosis 1+; Hypochromasia 1+; Normal RBC Morphology No; Polychromasia 1+; Total Cells Counted 100
[2024-11-19 07:46] VITALS: BP 123/63
[2024-11-19] MEDS: PROTONIX IV 40 MG IV ×2 (07:50→20:28)
[2024-11-19] MEDS: NSS (PRESERVATIVE FREE) 10 ML IV ×2 (07:56→20:29)
[2024-11-19] MEDS: FLUSH (NSS) 2 FLUSH IV ×3 (07:57→14:06)
[2024-11-19] MEDS: COMPAZINE 10 MG IV ×2 (11:32→17:37)
--- NOTE | 2024-11-19 12:14 | W.PN.NEPH.PH ---
Today's Communication / Plan
-
Maintain IV fluids as patient is predominantly n.p.o.
Assessment/Plan
-
Impression:
Hyponatremia
NG Metabolic Acidosis (AG 3)
Hypocalcemia
Diarrhea/abdominal pain/enterocolitis
History of stomach cancer with recent chemotherapy at [place] [facility] 1 week prior (FLOT + Durvalumab)
History of Crohn's disease
History of stroke
Pancytopenia/neutropenia
Plan:
Hyponatremia:
-Likely a function of volume depletion and impaired solute intake, low MAP we will also SIADH in setting of gastric malignancy
Hypotension likely a function of compromised effective circulating volume due to hypoalbuminemia and diarrhea
Now with intractable nausea and vomiting
Hypocalcemia:
- Obtain intact PTH pending
Calcium rider prn
Check vitamin D level ordered: low at 18.2 , replete with ergocalciferol once po intake established
Decrease rate of lactated Ringer's to 75 cc/h
-
-
Date of Service: November 19, 2024
CC / HPI / ROS
-
Chief Complaint:
Acute kidney injury
Hyponatremia
History of Present Illness:
Diarrhea colitis history of stomach cancer with mild ENMA and hyponatremia and hypocalcemia with low albumin
Hyponatremia unchanged with serum sodium level of 129
Hemodynamically stable
Review of Systems:
Vomiting
Continues to have abdominal pain
No chest pain or shortness of breath
Labs
-
Labs:
WBC 8.7 10^3/uL (4.8-10.8) 11/19/24 05:34
RBC 2.74 10^6/uL (4.20-5.40) L 11/19/24 05:34
Hgb 8.2 g/dL (12.0-16.0) L 11/19/24 05:34
Hct 23.8 % (37.0-47.0) L 11/19/24 05:34
Plt Count 60 10^3/uL (130-400) L D 11/19/24 05:34
Sodium 129 mmol/L (135-145) L 11/19/24 05:33
Potassium 3.5 mmol/L (3.5-5.1) 11/19/24 05:33
Chloride 103 mmol/L (98-107) 11/19/24 05:33
Carbon Dioxide 22 mmol/L (22-30) 11/19/24 05:33
BUN 35 mg/dl (7-17) H 11/19/24 05:33
Creatinine 0.9 mg/dL (0.6-1.0) 11/19/24 05:33
eGFR > 60.00 11/19/24 05:33
Glucose 109 mg/dl (70-99) H 11/19/24 05:33
Calcium 7.2 mg/dl (8.4-10.2) L 11/19/24 05:33
Albumin 2.1 g/dl (3.5-5.0) L 11/19/24 05:33
Physical Exam
-
Vital Signs:
Vital Signs
Temp Pulse Resp BP Pulse Ox
97.5 F 84 14 123/63 92
11/19/24 07:46 11/19/24 07:46 11/19/24 07:46 11/19/24 07:46 11/19/24 07:46
Respiratory:: Bilateral: CTA
Abdomen:: Tender
Bowel Sounds:: Decreased
Extremity Edema:: +1: Bilateral:
--- NOTE | 2024-11-19 13:29 | W.PN.HOSP.TC ---
Addendum entered and electronically signed by Monico Magallanes MD 11/19/24 14:46:
Mixed hyperbilirubinemia -total bilirubin of 4 with direct 2
Original Note:
Today's Communication/Plan
-
see note
Assessment / Plan
Assessment / Plan
69-year-old female with history of stomach cancer (undergoing chemotherapy at [facility] -- last chemotherapy was 1 week prior -- 3 treatments so far), TIA/CVA, Crohn's Disease, hyperlipidemia, OA, allergic to penicillin, total left knee replacement
and rotator cuff repair presented with weakness and near syncopal episode. Prior to arrival, patient got up to go to the bathroom. On the way back to the bed, felt she was going to have diarrhea and passed out, she then had an episode of diarrhea.
Patient has since been feeling very fatigued, nauseous, and multiple episodes of diarrhea since her last chemotherapy about 1 week prior. Per patient's family, she has not had anything to eat in 5 days. Patient follows with [facility], went to their
facility on Tuesday November 12, 2024, due to her symptoms. She was given IV fluids and had laboratory showing platelet count of 50, WBC 5 and sodium in the upper 130s. Patient denied fever, chest pain or difficulty breathing. She has generalized
abdominal discomfort.
Neutropenic enterocolitis
Nausea/vomiting - Refractory to treatment
Diarrhea - resolved
-ER provider discussed with [facility] oncology Dr. Live Song - recommend neutropenic precautions, and broad spectrum abx for her neutropenic colitis.
-Suspected from infectious enteritis/infectious colitis
-Continue Cefepime and Flagyl
-Blood cs neg. Not having any BM in the hospital
-Abd xr did not show any signs of ileus/sbo, abd exam remains relatively benign.
-Advanced to FL diet
-QTc 445 ms, Reglan scheduled ordered with prn Compazine
- Patient continues to have significant greenish bilious vomiting overnight. Unfortunately symptoms difficult to control on 2nd and 3rd line of antiemetics. Trying any different antiemetic may not change the result. Gastric compression may
alleviate some of the symptom although with patient having GE junction mass will not be feasible to put a blind NG tube. GI evaluation requested of any alternative route for this.
- Suspect patient may end up requiring TPN if not able to tolerate any food intake, this will be also problematic with patient immunocompromise and risk of bacteremia/CLABSI. will need to discuss with primary oncology as well at that point.
Stomach Cancer
-Patient's oncologist (Dr. Osuna) called emergency room physician, Dr. Joselin Reynolds, who spoke directly to Dr. Osuna. Dr. Osuna said if he could be of service during the admission his number is [phone].
Recent UTI
-Denied any further UTI symptoms as of 11/15/24
-Did not finish Macrobid given hospitalization
-On antibiotics as above
Non-Anion Gap Metabolic Acidosis - resolved
-Maintain on bicarb infusion per nephro
Hypotension - Improved
-Likely from low albumin and diarrhea
Hypocalcemia
- Got 2 g of calcium
- Follow-up PTH
Near Syncope prior to arrival
-Likely from dehydration and hypovolemia
Neutropenia - Improving
Pancytopenia - Improving
Thrombocytopenia - Improving
-Neutropenic precautions
-No platelets transfusion unless platelets down to 10
-If patient is bleeding, will also need to transfuse platelets
-Regular products for platelets are fine.
Acute Hyponatremia
- getting close to baseline, presumed with no to low solute intake and pre-admission diarrhea related
-Per records, patient's sodium was in upper 130s, 2 days ago
-Normal Saline bolus given in the ER
-PO FR 40 ounces
History of Crohn's Disease -- Oncologist consulted gastroenterology who said that no active Crohn's Disease currently
Osteoarthritis
History of Basal Cell Carcinoma
History of Colon Polyp
History of Delayed Emergence from Anesthesia
History of Esophageal Ulcer
History of Hiatal Hernia
Osteoporosis
DVT Prophylaxis: SCDs. No chemical DVT prophylaxis given thrombocytopenia.
Code Status: Full Code
Total time spent : 52 mins
Anticipated Discharge: > 48 hours
Subjective/Interval History
-
Date of Service: November 19, 2024
Patient continues to have significant bilious vomiting
Had some oral liquid intake which patient ended up vomiting
Objective Data
-
Labs:
Laboratory Results
11/19/24 11/19/24
05:33 05:34
WBC 8.7
Hgb 8.2 L
Hct 23.8 L
Plt Count 60 L D
Sodium 129 L
Potassium 3.5
Chloride 103
Carbon Dioxide 22
BUN 35 H
Creatinine 0.9
Glucose 109 H
Calcium 7.2 L
Total Bilirubin 3.9 H
AST 31
ALT 29
Alkaline Phosphatase 76
Vital Signs:
Vital Signs
Temp Pulse Resp BP Pulse Ox
97.5 F 84 14 123/63 92
11/19/24 07:46 11/19/24 07:46 11/19/24 07:46 11/19/24 07:46 11/19/24 07:46
I&O
11/18/24 11/19/24 11/20/24
06:59 06:59 06:59
Intake Total 480 / 480 2460 / 2460
Balance 480 / 480 2460 / 2460
Review of Systems
-
Respiratory: Reports No Symptoms
Cardiac: Reports No Symptoms
Abdomen/GI: Reports Abdominal Pain, Nausea and Vomiting
Physical Exam
-
General: No Apparent Distress and Comfortable
HEENT: Negative Oxygen
GI: Soft, Nontender and Normal Bowel Sounds (Decreased bowel sounds)
Musculoskeletal: No Edema
Neuro: Awake, Alert, Oriented, No Motor Deficits and Nonfocal/Grossly Intact
Psych: Calm
--- NOTE | 2024-11-19 14:50 | W.PN.GI.CBS2 ---
Today's Communication / Plan
-
IV ativan q6, obstruction series in the morning, if still vomiting - NGTube
Assessment / Plan
-
Tash Wood is a 69yo W with stage III GEJ diagnosed 08/2024 follows at [facility] on chemotherapy last dose 11/07 who was admitted for weakness and diarrhea. GI consulted for remote history of Crohn's disease. She tells me that crohn's was diagnosed
in her 40s. 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 She denies being on any treatment for her Crohns. She follows with Dr Calhoun at [facility] in [place]. Her last Cscope was 2016 at with polyps and tics.
TI not intubated. She is generally constipated on miralax daily for many years. However since starting chemo she is having more diarrhea that is nonbloody. Vitals AF hypotensive BP 94/61. abdomen TTP with guarding. Labs reviewed severe
neutropenia and anemia. CTAP with IV contrast. Thickening redundant sigmoid colon. R lobe hepatic cyst, small HH.
Impression
- Neutropenic enterocolitis - neutropenia resolved
- H/o Crohn's in remission for >10yrs not on treatment
- Stage III GEJ cancer diagnosed 08/2024 managed at [facility]
- Weight loss
- H/o hemorrhoidectomy and sphincterotomy
- IVF
- C/w abx
- Blood cultures NGTD
- No evidence that crohn's is active currently
- Monitor stool output
- Serial abd exam
- Her chemo is on hold
- C/w PPI
11/19/24 -asked return because of persistent vomiting. Vomited bilious fluid twice today and yesterday
NO BMs here and currently no flatus.
She had on CT imaging from 11/15/2024 there was no oral contrast but she has fluid-filled nondistended large and small bowel. Review of x-ray yesterday reveals mildly dilated loops of small bowel and significant large bowel gas
-- avoid narcotics
-- will give ativan 1mg IV q6 x 3 days to help with nausea and vomiting, continue scheduled reglan, avoid narcotics or anything to slow down the bowel
-- may need NGT if no improvement overnight
-- keep K and mag in normal range.
-- reviewed her EGD from August 2024 at [facility] with Dr. Felipe
-- NPO with ice chips and swabs for now
Her GI is at [place]
Subjective
Subjective
Date of Service: November 19, 2024
Over the past couple of days patient has had persistent vomiting with some liquids or without even eating. She states she is not passing any flatus and has not had a bowel movement in days. Her last food was about a week ago and it was small
Objective
Data Reviewed
Laboratory Data:
Laboratory Results
11/19/24 05:34
11/19/24 05:33
Laboratory Results
Magnesium 2.1 mg/dl (1.6-2.3) 11/18/24 04:30
Total Bilirubin 3.9 mg/dl (0.2-1.3) H 11/19/24 05:33
AST 31 U/L (14-36) 11/19/24 05:33
ALT 29 U/L (0-35) 11/19/24 05:33
Alkaline Phosphatase 76 U/L (38-126) 11/19/24 05:33
Lipase 43 U/L (23-300) 11/15/24 06:28
Vital Signs and I&O:
Vital Signs
Temp Pulse Resp BP Pulse Ox
97.5 F 84 14 123/63 92
11/19/24 07:46 11/19/24 07:46 11/19/24 07:46 11/19/24 07:46 11/19/24 07:46
I&O
11/18/24 11/19/24 11/20/24
06:59 06:59 06:59
Intake Total 480 / 480 0 / 246
Balance 480 / 480 0 / 2459
Physical Exam
Physical Exam
HEENT: Anicteric (Icteric)
GI: Tender (Mildly tender, no audible bowel sounds)
Extremities: No Edema
Neuro: Non Focal
[2024-11-19 15:27] VITALS: BP 119/64
[2024-11-19] MEDS: MYLICON 80 MG PO (17:11)
--- NOTE | 2024-11-19 17:46 | PTCARENOTE ---
Assumed care of this pt @1500. Initially, pt resting in bed. Pt's family member rang saying the pt was having increased nausea and requesting medications for relief- PRN simethicone and compazine administered. Pharmacy called regarding switch from
IV to PO ativan. Due to IV ativan shortage, PO is being autosubsidized at this time. Pt stated she would be unable to tolerate PO medications. Will wait 30 minutes and try again. POC ongoing.
[2024-11-19] MEDS: ATIVAN 1 MG PO (18:17)
[2024-11-19] MEDS: MUCINEX PO ×2 (22:00→22:26)
[2024-11-19 23:00] VITALS: BP 105/61
--- NOTE | 2024-11-19 23:45 | PTCARENOTE ---
Patient found to have increased expiratory wheeze and mucous that she cannot seem to cough up. This RN brought in incentive spirometer and Acapella. This RN educated patient and family about benefits of deep breathing, patient states she feels like
she ' cannot take a deep breath'. Pulse ox 92%. Patient appears to be getting weaker and more lethargic, using bedpan rather than commode due to increased weakness. Ativan given by previous RN, URIEL Pimentel notified of changes. Next Ativan dose
held. Mucinex added. Patient too lethargic and nauseous to tolerate Mucinex PO. URIEL Pimentel notified. Patient pulse ox later 90%. URIEL Pimentel notified. Patient now on 2 L of oxygen, pulse ox 96%. Will continue to monitor.
[2024-11-20] MEDS: FLAGYL 500 MG 100 IV ×3 (02:39→18:04)
[2024-11-20] MEDS: STERILE WATER FOR INJECTION 10 ML IV ×3 (02:40→18:05)
[2024-11-20] MEDS: MAXIPIME 2000 MG IV ×3 (02:40→18:05)
[2024-11-20 03:00] VITALS: BP 105/53
[2024-11-20 04:26] LABS: Hematocrit 21.6 % (37.0-47.0); Hemoglobin 7.6 g/dL (12.0-16.0); Mean Corp Hgb Conc. 35.2 g/dL (33.0-37.0); Mean Corpuscular Volume 87.1 fL (81.0-99.0); Platelet Count 83 10^3/uL (130-400); Red Cell Dist. Width 15.6 % (11.5-14.5)
[2024-11-20 04:50] LABS: ALT (SGPT) 34 U/L (0-35); AST (SGOT) 46 U/L (14-36); Albumin 1.9 g/dl (3.5-5.0); Alkaline Phosphatase 79 U/L (38-126); Blood Urea Nitrogen 36 mg/dl (7-17); Calcium 7.1 mg/dl (8.4-10.2); Carbon Dioxide 23 mmol/L (22-30); Chloride 106 mmol/L (98-107); Estimated Creatinine Clearance 63 ml/min; Glucose 83 mg/dl (70-99); Potassium 3.1 mmol/L (3.5-5.1); Sodium 130 mmol/L (135-145); Total Protein 3.9 g/dl (6.3-8.2); eGFR > 60.00
[2024-11-20] MEDS: REGLAN 5 MG IV ×3 (05:46→21:09)
[2024-11-20] MEDS: LR 1000 IV (05:46)
[2024-11-20 08:08] VITALS: BP 94/54
[2024-11-20] MEDS: NSS (PRESERVATIVE FREE) 10 ML IV ×2 (08:10→21:10)
[2024-11-20] MEDS: MUCINEX 600 MG PO ×2 (08:11→21:09)
[2024-11-20] MEDS: PROTONIX IV 40 MG IV ×2 (08:11→21:10)
--- NOTE | 2024-11-20 08:48 | W.PN.ONC ---
Today's Communication / Plan
-
Resolution neutropenia
Continue progressive anemia
Thrombocytopenia resolving postchemotherapy effect
Consider direct visualization of the colon
Pancolitis may implicate PD-L1 therapy
Impression
Impression
a/w Neutropenic enterocolitis -neutropenia resolved
stage III GEJ diagnosed 08/2024 follows at [facility] -Dr. Billy Osuna primary oncologist
Gastric cancer on FLOT + Durvalumab chemotherapy with LA GCSF, last dose 11/07
Pancytopenia secondary to antineoplastic therapy -WBC now normal
History of Crohn's disease -currently inactive
Hyperbilirubinemia
Subjective/Objective
Subjective/Objective
Patient appears to be resting comfortably
Vital Signs:
Vital Signs
Temp Pulse Resp BP Pulse Ox
97.4 F 73 14 94/54 100
11/20/24 08:08 11/20/24 08:08 11/20/24 08:08 11/20/24 08:08 11/20/24 08:08
Physical exam unchanged
Lab Results:
Laboratory Data
WBC 15.8 10^3/uL (4.8-10.8) H 11/20/24 04:08
Hgb 7.6 g/dL (12.0-16.0) L 11/20/24 04:08
Plt Count 83 10^3/uL (130-400) L D 11/20/24 04:08
eGFR > 60.00 11/20/24 04:08
--- NOTE | 2024-11-20 13:21 | W.PN.HOSP.TC ---
Today's Communication/Plan
-
continue supportive care
diet advancement as tolerated
symptomatic care for n/v
Assessment / Plan
Assessment / Plan
CR abd obstruction series
1. Mild gaseous distention of the small bowel and colon, with air-fluid levels on the decubitus view. Air is seen to the level of the rectum.
2. Overall, findings are suggestive of adynamic ileus or distal colonic partial obstruction. Findings are similar compared to prior plain film of the abdomen dated 11/18/2024.
3. There were findings of severe distal colitis on prior CT dated 11/15/2024, which may account for the findings on the current study.

Neutropenic enterocolitis
Nausea/vomiting - Refractory to treatment
Presumed adynamic ileus
- ER provider discussed with [place] oncology Dr. Live Song - recommend neutropenic precautions, and broad spectrum abx for her neutropenic colitis.
- Suspected from infectious enteritis/infectious colitis
- Continue Cefepime and Flagyl
- Blood cs neg. Not having any BM in the hospital
- Abd xr did not show any signs of ileus/sbo, abd exam remains relatively benign.
- Abd xr obstructive series showing contrast passing through with possibilty of adynamic ileus or distal colonic partial obstruction.
- Patient had some bowel movement and nausea vomiting is improving, continue supportive care
- Patient was able able to keep some liquid diet down for the lunch
Stomach Cancer
-Patient's oncologist (Dr. Osuna) called emergency room physician, Dr. Joselin Reynolds, who spoke directly to Dr. Osuna. Dr. Osuna said if he could be of service during the admission his number is [phone].
Recent UTI
-Denied any further UTI symptoms as of 11/15/24
-Did not finish Macrobid given hospitalization
-On antibiotics as above
Non-Anion Gap Metabolic Acidosis - resolved
-Maintain on bicarb infusion per nephro
Hypotension - Improved
-Likely from low albumin and diarrhea
Hypocalcemia
-Got 2 g of calcium
-Follow-up PTH
Near Syncope prior to arrival
-Likely from dehydration and hypovolemia
Neutropenia - Improving
Pancytopenia - Improving
Thrombocytopenia - Improving
-Neutropenic precautions
-No platelets transfusion unless platelets down to 10
-If patient is bleeding, will also need to transfuse platelets
-Regular products for platelets are fine.
Acute Hyponatremia
-getting close to baseline, presumed with no to low solute intake and pre-admission diarrhea related
-Per records, patient's sodium was in upper 130s, 2 days ago
-Normal Saline bolus given in the ER
-PO FR 40 ounces
History of Crohn's Disease -- Oncologist consulted gastroenterology who said that no active Crohn's Disease currently
Osteoarthritis
History of Basal Cell Carcinoma
History of Colon Polyp
History of Delayed Emergence from Anesthesia
History of Esophageal Ulcer
History of Hiatal Hernia
Osteoporosis
DVT Prophylaxis: SCDs. No chemical DVT prophylaxis given thrombocytopenia.
Code Status: Full Code
Anticipated Discharge: 24 - 48 hours
Subjective/Interval History
-
Date of Service: November 20, 2024
Reportedly patient had some bowel movement overnight
Nausea and vomiting somewhat better as well
No other reported problems
Objective Data
-
Labs:
Laboratory Results
11/20/24
04:08
WBC 15.8 H
Hgb 7.6 L
Hct 21.6 L
Plt Count 83 L D
Sodium 130 L
Potassium 3.1 L
Chloride 106
Carbon Dioxide 23
BUN 36 H
Creatinine 0.8
Glucose 83
Calcium 7.1 L
Total Bilirubin 2.9 H
AST 46 H
ALT 34
Alkaline Phosphatase 79
Vital Signs:
Vital Signs
Temp Pulse Resp BP Pulse Ox
97.4 F 73 14 94/54 100
11/20/24 08:08 11/20/24 08:08 11/20/24 08:08 11/20/24 08:08 11/20/24 08:08
I&O
11/19/24 11/20/24 11/21/24
06:59 06:59 06:59
Intake Total 2460 / 2460
Balance 2460 / 2460
Review of Systems
-
Respiratory: Reports No Symptoms
Cardiac: Reports No Symptoms
Abdomen/GI: Reports No Symptoms
Physical Exam
-
General: No Apparent Distress and Comfortable
HEENT: Negative Oxygen
GI: Soft, Nontender and Normal Bowel Sounds (Decreased bowel sounds)
Musculoskeletal: No Edema
Neuro: Awake, Alert, Oriented, No Motor Deficits and Nonfocal/Grossly Intact
Psych: Calm
[2024-11-20 15:16] VITALS: BP 100/53
--- NOTE | 2024-11-20 17:33 | W.PN.GI.CBS2 ---
Today's Communication / Plan
-
-- GI signed off. Call with questions
Assessment / Plan
-
Tash Wood is a 69yo W with stage III GEJ diagnosed 08/2024 follows at [facility] on chemotherapy last dose 11/07 who was admitted for weakness and diarrhea. GI consulted for remote history of Crohn's disease. She tells me that crohn's was diagnosed
in her 40s. 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 She denies being on any treatment for her Crohns. She follows with Dr Calhoun at [facility] in [place]. Her last Cscope was 2017 at with polyps and tics.
TI not intubated. She is generally constipated on miralax daily for many years. However since starting chemo she is having more diarrhea that is nonbloody. Vitals AF hypotensive BP 94/61. abdomen TTP with guarding. Labs reviewed severe
neutropenia and anemia. CTAP with IV contrast. Thickening redundant sigmoid colon. R lobe hepatic cyst, small HH.
Impression
- Neutropenic enterocolitis - neutropenia resolved
- H/o Crohn's in remission for >10yrs not on treatment
- Stage III GEJ cancer diagnosed 08/2024 managed at [facility]
- Weight loss
- H/o hemorrhoidectomy and sphincterotomy
- IVF
- C/w abx
- Blood cultures NGTD
- No evidence that crohn's is active currently
- Monitor stool output
- Serial abd exam
- Her chemo is on hold
- C/w PPI
11/19/24 -asked return because of persistent vomiting. Vomited bilious fluid twice today and yesterday
NO BMs here and currently no flatus.
She had on CT imaging from 11/15/2024 there was no oral contrast but she has fluid-filled nondistended large and small bowel. Review of x-ray yesterday reveals mildly dilated loops of small bowel and significant large bowel gas
-- avoid narcotics
-- will give ativan 1mg IV q6 x 3 days to help with nausea and vomiting, continue scheduled reglan, avoid narcotics or anything to slow down the bowel
-- may need NGT if no improvement overnight
-- keep K and mag in normal range.
-- reviewed her EGD from August 2024 at [facility] with Dr. Felipe
-- NPO with ice chips and swabs for now
Her GI is at [place]
11/20/2024 -her obstruction series shows mild gaseous distention of the small bowel and colon with air-fluid levels but she is moving her bowels. Suggestive of a ileus or distal colonic partial obstruction?
-- Patient is moving her bowels and tolerating a full liquid diet
-- No need for NG tube
-- GI will sign off. Please call with any questions.
-- Okay to use sublingual Ativan as needed for nausea.
Subjective
Subjective
Date of Service: November 20, 2024
Patient has had no further vomiting. She is tolerating full liquid diet well. Has had 2 bowel movements.
Objective
Data Reviewed
Laboratory Data:
Laboratory Results
11/20/24 04:08
11/20/24 04:08
Laboratory Results
Magnesium 2.1 mg/dl (1.6-2.3) 11/18/24 04:30
Total Bilirubin 2.9 mg/dl (0.2-1.3) H 11/20/24 04:08
AST 46 U/L (14-36) H 11/20/24 04:08
ALT 34 U/L (0-35) 11/20/24 04:08
Alkaline Phosphatase 79 U/L (38-126) 11/20/24 04:08
Lipase 43 U/L (23-300) 11/15/24 06:28
Vital Signs and I&O:
Vital Signs
Temp Pulse Resp BP Pulse Ox
97.4 F 72 14 100/53 98
11/20/24 15:16 11/20/24 15:16 11/20/24 15:16 11/20/24 15:16 11/20/24 15:16
I&O
11/19/24 11/20/24 11/21/24
06:59 06:59 06:59
Intake Total 2460 / 2460
Balance 2460 / 2460
Physical Exam
Physical Exam
HEENT: Anicteric (Icteric)
GI: Soft, Non Distended and Non Tender
--- NOTE | 2024-11-20 17:56 | W.PN.NEPH.PH ---
Today's Communication / Plan
-
20 mill equivalents IV potassium
Maintain lactated Ringer's
Assessment/Plan
-
Impression:
Hyponatremia
NG Metabolic Acidosis (AG 3)
Hypocalcemia
Diarrhea/abdominal pain/enterocolitis
ileus
History of stomach cancer with recent chemotherapy at [place] 1 week prior (FLOT + Durvalumab)
History of Crohn's disease
History of stroke
Pancytopenia/neutropenia
Plan:
Hyponatremia:
-Now up to 130
-Likely a function of volume depletion and impaired solute intake, low MAP we will also SIADH in setting of gastric malignancy
Hypotension likely a function of compromised effective circulating volume due to hypoalbuminemia and diarrhea
Maintain IV fluids in setting of ileus
- Replete potassium IV
Hypocalcemia:
- Obtain intact PTH pending
Calcium rider prn
Check vitamin D level ordered: low at 18.2 , replete with ergocalciferol once po intake established
-
-
Date of Service: November 20, 2024
CC / HPI / ROS
-
Chief Complaint:
Acute kidney injury
Hyponatremia
History of Present Illness:
Diarrhea colitis history of stomach cancer with mild ENMA and hyponatremia and hypocalcemia with low albumin
Hyponatremia unchanged with serum sodium level of 130
Hemodynamically stable
Review of Systems:
Continues to have abdominal pain
No chest pain or shortness of breath
Labs
-
Labs:
WBC 15.8 10^3/uL (4.8-10.8) H 11/20/24 04:08
RBC 2.48 10^6/uL (4.20-5.40) L 11/20/24 04:08
Hgb 7.6 g/dL (12.0-16.0) L 11/20/24 04:08
Hct 21.6 % (37.0-47.0) L 11/20/24 04:08
Plt Count 83 10^3/uL (130-400) L D 11/20/24 04:08
Sodium 130 mmol/L (135-145) L 11/20/24 04:08
Potassium 3.1 mmol/L (3.5-5.1) L 11/20/24 04:08
Chloride 106 mmol/L (98-107) 11/20/24 04:08
Carbon Dioxide 23 mmol/L (22-30) 11/20/24 04:08
BUN 36 mg/dl (7-17) H 11/20/24 04:08
Creatinine 0.8 mg/dL (0.6-1.0) 11/20/24 04:08
eGFR > 60.00 11/20/24 04:08
Glucose 83 mg/dl (70-99) 11/20/24 04:08
Calcium 7.1 mg/dl (8.4-10.2) L 11/20/24 04:08
Albumin 1.9 g/dl (3.5-5.0) L 11/20/24 04:08
Physical Exam
-
Vital Signs:
Vital Signs
Temp Pulse Resp BP Pulse Ox
97.4 F 72 14 100/53 98
11/20/24 15:16 11/20/24 15:16 11/20/24 15:16 11/20/24 15:16 11/20/24 15:16
Respiratory:: Bilateral: CTA
Abdomen:: Tender
Bowel Sounds:: Decreased
Extremity Edema:: +1: Bilateral:
Gleason Catheter: No
[2024-11-20] MEDS: KCL 260 MEQ IV (19:35)
[2024-11-20] MEDS: MYLICON 80 MG PO (21:29)
[2024-11-20 23:00] VITALS: BP 106/58
[2024-11-21] MEDS: LR 1000 IV ×2 (00:20→18:03)
[2024-11-21] MEDS: FLAGYL 500 MG 100 IV ×2 (02:02→10:14)
[2024-11-21] MEDS: STERILE WATER FOR INJECTION 10 ML IV ×2 (02:02→10:14)
[2024-11-21] MEDS: MAXIPIME 2000 MG IV ×2 (02:02→10:14)
[2024-11-21] MEDS: REGLAN 5 MG IV ×3 (05:40→20:57)
[2024-11-21 05:52] LABS: Blood Urea Nitrogen 27 mg/dl (7-17); Calcium 6.4 mg/dl (8.4-10.2); Carbon Dioxide 22 mmol/L (22-30); Chloride 108 mmol/L (98-107); Estimated Creatinine Clearance 72 ml/min; Glucose 97 mg/dl (70-99); Potassium 3.0 mmol/L (3.5-5.1); Sodium 131 mmol/L (135-145); eGFR > 60.00
--- NOTE | 2024-11-21 06:14 | W.PN.UPDATE ---
Update Note
Progress Note Update
corrected calcium 7.7, will order 1 g Calcium Gluconate
K 3.0 KCL rider ordered.
no new complaints.
[2024-11-21] MEDS: CALCIUM GLUCONATE 100 IV (06:32)
[2024-11-21 07:30] VITALS: BP 128/67
--- NOTE | 2024-11-21 07:34 | PTCARENOTE ---
Provider, Tevin, notified of pt report of double vision x2-3 days, with and without glasses.
[2024-11-21] MEDS: KCL 270 MEQ IV (08:27)
[2024-11-21] MEDS: PROTONIX IV 40 MG IV ×2 (08:32→20:57)
[2024-11-21] MEDS: MUCINEX 600 MG PO ×2 (08:32→20:57)
[2024-11-21] MEDS: NSS (PRESERVATIVE FREE) 10 ML IV ×2 (08:32→20:56)
[2024-11-21 11:01] LABS: Reticulocyte Count 2.4 % (0.4-2.8)
[2024-11-21 11:51] LABS: LDH 535 U/L (120-246)
[2024-11-21] MEDS: LASIX 40 MG IV (11:57)
[2024-11-21 12:02] LABS: Total Iron Binding Capacity 169 ug/dl (265-497)
[2024-11-21 12:18] LABS: Hematocrit 24.3 % (37.0-47.0); Hemoglobin 8.3 g/dL (12.0-16.0); Mean Corp Hgb Conc. 34.2 g/dL (33.0-37.0); Mean Corpuscular Volume 89.3 fL (81.0-99.0); Platelet Count 95 10^3/uL (130-400); Red Cell Dist. Width 16.3 % (11.5-14.5)
[2024-11-21] MEDS: DILAUDID 0.5 MG IV (12:41)
[2024-11-21 13:14] LABS: Ferritin 2000.0 ng/ml (11.1-264.0)
--- NOTE | 2024-11-21 13:17 | W.PN.NEPH.PH ---
Today's Communication / Plan
-
Lasix
Assessment/Plan
-
Impression:
Hyponatremia
NG Metabolic Acidosis (AG 3)
Hypocalcemia
Diarrhea/abdominal pain/enterocolitis
ileus
History of stomach cancer with recent chemotherapy at [place] 1 week prior (FLOT + Durvalumab)
History of Crohn's disease
History of stroke
Pancytopenia/neutropenia
Plan:
Hyponatremia:
-Now up to 130
-Likely a function of volume depletion and impaired solute intake, low MAP we will also SIADH in setting of gastric malignancy
Hypotension likely a function of compromised effective circulating volume due to hypoalbuminemia and diarrhea
Maintain IV fluids in setting of ileus
- Replete potassium IV
Hypocalcemia:
- Obtain intact PTH 100
Calcium rider prn
Check vitamin D level ordered: low at 18.2 , replete with ergocalciferol x 1 completed
Pending transfer to [place]
Okay with diuretics
-
-
Date of Service: November 21, 2024
CC / HPI / ROS
-
Chief Complaint:
Acute kidney injury
Hyponatremia
History of Present Illness:
Diarrhea colitis history of stomach cancer with mild ENMA and hyponatremia and hypocalcemia with low albumin
Hyponatremia unchanged with serum sodium level of 130
Hemodynamically stable
Review of Systems:
Continues to have abdominal pain
No chest pain or shortness of breath
Labs
-
Labs:
WBC Cancelled 11/21/24 11:55
RBC Cancelled 11/21/24 11:55
Hgb Cancelled 11/21/24 11:55
Hct Cancelled 11/21/24 11:55
Plt Count Cancelled 11/21/24 11:55
Sodium 131 mmol/L (135-145) L 11/21/24 05:03
Potassium 3.0 mmol/L (3.5-5.1) L 11/21/24 05:03
Chloride 108 mmol/L (98-107) H 11/21/24 05:03
Carbon Dioxide 22 mmol/L (22-30) 11/21/24 05:03
BUN 27 mg/dl (7-17) H 11/21/24 05:03
Creatinine 0.7 mg/dL (0.6-1.0) 11/21/24 05:03
eGFR > 60.00 11/21/24 05:03
Glucose 97 mg/dl (70-99) 11/21/24 05:03
Calcium 6.4 mg/dl (8.4-10.2) L* 11/21/24 05:03
Albumin 1.9 g/dl (3.5-5.0) L 11/20/24 04:08
Physical Exam
-
Vital Signs:
Vital Signs
Temp Pulse Resp BP Pulse Ox
97.1 F 76 16 119/61 98
11/21/24 07:30 11/21/24 11:57 11/21/24 07:30 11/21/24 11:57 11/21/24 07:30
Respiratory:: Bilateral: Coarse
Abdomen:: Tender
Bowel Sounds:: Decreased
Extremity Edema:: +2: Bilateral:
Gleason Catheter: No
--- NOTE | 2024-11-21 13:22 | W.PN.HOSP.TC ---
Today's Communication/Plan
-
see note
Assessment / Plan
Assessment / Plan
CR abd obstruction series
1. Mild gaseous distention of the small bowel and colon, with air-fluid levels on the decubitus view. Air is seen to the level of the rectum.
2. Overall, findings are suggestive of adynamic ileus or distal colonic partial obstruction. Findings are similar compared to prior plain film of the abdomen dated 11/18/2024.
3. There were findings of severe distal colitis on prior CT dated 11/15/2024, which may account for the findings on the current study.

Neutropenic enterocolitis
Nausea/vomiting - Refractory to treatment
Presumed adynamic ileus
- ER provider discussed with [facility] oncology Dr. Live Song - recommend neutropenic precautions, and broad spectrum abx for her neutropenic colitis.
- Suspected from infectious enteritis/infectious colitis
- Continue Cefepime and Flagyl
- Blood cs neg. Not having any BM in the hospital
- 11/18 Abd xr did not show any signs of ileus/sbo, abd exam remains relatively benign.
- 11/19 Abd xr obstructive series showing contrast passing through with possibility of adynamic ileus or distal colonic partial obstruction.
- Patient again noted to be having distended abdomen and tympanic bowel sounds again today
- Not able to tolerate oral contrast likely, will do a CT abdomen with IV contrast only
- Case discussed with primary oncology goal team and patient has been accepted for transfer to [facility] unfortunately transfer may not happen over weekend. Discussed with Dr. López agustin and recommended patient to be transferred to [facility] as well .
Discussed possible endoscopic NG tube placement for gastric decompression with bone drier operator GI for temporary measure, who is planning to monitor the patient over the weekend.
Stomach Cancer
-Patient's oncologist (Dr. Osuna) called emergency room physician, Dr. Joselin Reynolds, who spoke directly to Dr. Osuna. Dr. Osuna said if he could be of service during the admission his number is [phone].
Recent UTI
-Denied any further UTI symptoms as of 11/15/24
-Did not finish Macrobid given hospitalization
-On antibiotics as above
Non-Anion Gap Metabolic Acidosis - resolved
-Maintain on bicarb infusion per nephro
Hypotension - Improved
-Likely from low albumin and diarrhea
Hypocalcemia
-replaced K again today
Near Syncope prior to arrival
-Likely from dehydration and hypovolemia
Neutropenia
Pancytopenia - Improving
Thrombocytopenia - Improving
Leukocytosis
-Neutropenic precautions
-No platelets transfusion unless platelets down to 10
-If patient is bleeding, will also need to transfuse platelets
-Regular products for platelets are fine.
- Patient have new leukocytosis developing now with total WBC of 28K. Change cefepime and Flagyl to Merrem, translocation of gut bacteria?
Acute Hyponatremia
-getting close to baseline, presumed with no to low solute intake and pre-admission diarrhea related
Double vision
- no other neurological issues
- complaining of some double vision, CT head w/o contrast ordered for start
- will need MR brain if not changed
History of Crohn's Disease -- Oncologist consulted gastroenterology who said that no active Crohn's Disease currently
Osteoarthritis
History of Basal Cell Carcinoma
History of Colon Polyp
History of Delayed Emergence from Anesthesia
History of Esophageal Ulcer
History of Hiatal Hernia
Osteoporosis
DVT Prophylaxis: SCDs. No chemical DVT prophylaxis given thrombocytopenia.
Code Status: Full Code
Discussed care plan with oncology/nephrology/GI.
Discussed care plan with primary oncology team at [facility] as well. Patient is accepted to transfer at [facility], may not happen over weekend.
Complex patient with at risk of further decline and cardio-pulmonary issues.
Total time spent : 60 mins
Anticipated Discharge: > 48 hours
Subjective/Interval History
-
Date of Service: November 21, 2024
Patient again noted to be distended with worsening abdominal pain
No bowel movement reported
Feeling nauseous, no vomiting
Objective Data
-
Labs:
Laboratory Results
11/21/24 11/21/24 11/21/24
05:03 10:48 11:55
WBC 28.1 H Cancelled
Hgb 8.3 L Cancelled
Hct 24.3 L Cancelled
Plt Count 95 L Cancelled
Sodium 131 L
Potassium 3.0 L
Chloride 108 H
Carbon Dioxide 22
BUN 27 H
Creatinine 0.7
Glucose 97
Calcium 6.4 L*
Vital Signs:
Vital Signs
Temp Pulse Resp BP Pulse Ox
97.1 F 76 16 119/61 98
11/21/24 07:30 11/21/24 11:57 11/21/24 07:30 11/21/24 11:57 11/21/24 07:30
I&O
11/20/24 11/21/24 11/22/24
06:59 06:59 06:59
Intake Total 840 / 840
Balance 840 / 840
Review of Systems
-
Respiratory: Reports No Symptoms
Cardiac: Reports No Symptoms
Abdomen/GI: Reports Abdominal Pain; Denies Nausea or Vomiting
Physical Exam
-
General: No Apparent Distress and Comfortable
HEENT: Negative Oxygen
GI: Soft, Tender and Distended; Negative Normal Bowel Sounds (Hyperactive bowel sounds)
Musculoskeletal: Edema, Right Lower Extrem and Edema, Left Lower Extrem
Neuro: Awake, Alert, Oriented, No Motor Deficits and Nonfocal/Grossly Intact
Psych: Calm
[2024-11-21 13:55] VITALS: BMI 31.7
--- NOTE | 2024-11-21 14:26 | W.PN.ONC2 ---
Today's Communication / Plan
-
- worsening pain, distention, nausea.
- agree with surgical consult for decompressive J tube.
- continue to monitor CBC. transfuse hgb < 7.0 g/dl.
Impression
Impression
a/w Neutropenic enterocolitis -
stage III GEJ diagnosed 08/2024 follows at [facility] -Dr. Billy Osuna primary oncologist
Gastric cancer on FLOT + Durvalumab chemotherapy with [place] GCSF, last dose 11/07. Now rising WBC could be related to this however infection response cannot be ruled out. cefepime/flagyl stopped today. monitor fever curve closely.
Pancytopenia secondary to antineoplastic therapy -neutropenia resolved now with rising WBC, improving platelets. Anemia persists with marked elevation in ferritin suggestive for inflammatory anemia. transfuse for hgb < 7.0 g/dl.
History of Crohn's disease -currently inactive, GI did not feel this represented flare.
worsening abdominal discomfort, distention, nausea when tried to advance diet. concerned for possible obstructive process related to gastric mass. surgical oncology consult regarding J tube placement for decompression.
Plan
Plan
see above
Subjective/Objective
Chief Complaint
gastric cancer
Subjective
pt with worsening upper abdominal pain, nausea over past 24 hours. She had last BM yesterday afternoon. Denies emesis, fevers.
Vital Signs:
Vital Signs
Temp Pulse Resp BP Pulse Ox
97.1 F 76 16 119/61 98
11/21/24 07:30 11/21/24 11:57 11/21/24 07:30 11/21/24 11:57 11/21/24 07:30
Lab Results:
Laboratory Data
WBC Cancelled 11/21/24 11:55
Hgb Cancelled 11/21/24 11:55
Plt Count Cancelled 11/21/24 11:55
eGFR > 60.00 11/21/24 05:03
Physical Exam
HEENT: No Jaundice
Cardiology: Normal Sinus Rhythm
Pulmonary: Clear
GI: Distended, Tense and Other (tender to palpation in epigastric region. ); No Normal Bowel Sounds (decreased)
Extremities: No Edema
Neuro: Non Focal
Review of Systems
Review of Systems
Constitutional: Denies Fever
Respiratory: Denies Dyspnea
Cardiovascular: Denies Chest Pain
Gastrointestinal: Reports Nausea/Vomiting and Other (worse abdominal pain); Denies Diarrhea
Orders
Orders
Orders From Last 24 Hours
11/21/24 10:48
Complete Blood Count/No Diff Routine
Ferritin Routine
Haptoglobin [S] Routine
LDH Routine
Reticulocyte Count Routine
Total Iron Binding Routine
[2024-11-21 15:30] VITALS: BP 109/60
[2024-11-21] MEDS: MERREM 1000 MG IV (16:45)
--- NOTE | 2024-11-21 16:47 | W.PN.GI.CBS2 ---
Today's Communication / Plan
-
Continue supportive care
Continue to correct electrolytes
Continue PPI twice daily
Added Carafate
Pending stool cultures added C. difficile also
Assessment / Plan
-
Tash Wood is a 69yo W with stage III GEJ diagnosed 08/2024 follows at [facility] on chemotherapy and immunotherapy (FLOT + Durvalumab) since 10/10, last dose 11/07 who was admitted for weakness and diarrhea. GI consulted for remote history of Crohn's
disease. She tells me that crohn's was diagnosed in her 40s. 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 She denies being on any treatment for her Crohns. She follows with Dr Calhoun at [facility] in [place]. Her
last Cscope was 2016 at with polyps and tics. TI not intubated. She is generally constipated on miralax daily for many years. However since starting chemo she is having more diarrhea that is nonbloody. Labs on admission severe neutropenia and
anemia. she did receive G-CSF at [facility] and WBC count improved. CTAP with IV contrast. Thickening redundant sigmoid colon. R lobe hepatic cyst, small HH.
Impression
- Neutropenic enterocolitis - neutropenia resolved
- H/o Crohn's in remission for >10yrs not on treatment
- Stage III GEJ cancer diagnosed 08/2024 managed at [facility]
- Weight loss
- H/o hemorrhoidectomy and sphincterotomy
A/P
Abdominal distention and pain with n/v/d is likely multifactorial from neutropenic enterocolitis at admission and also likely from chemotherapy and cannot rule out immune mediated colitis she did have sigmoid colitis on admission but on repeat CT
today shows inflammation in the distal ileum but no significant colitis was noted
Doubt Crohn's flare her Crohn's had been in remission for the past 3 years
Continue supportive care with IV fluids and full liquids as tolerated
Also has pancytopenia related to chemotherapy
Also has hyponatremia, hypokalemia and hypocalcemia which also may be making her ileus worse, her electrolytes are being corrected and nephrology is on board
She probably also has severe esophagitis from multiple episodes of bilious vomiting added Carafate and continue PPI IV twice daily
Fortunately she has not had any vomiting for the past 2 days
Continue full liquids as tolerated added Ensure
Her last bowel movement was earlier today her diarrhea has improved she has no rectal bleeding
Stool studies negative for norovirus, cultures are pending will also add C. difficile
Her white count has improved with G-CSF but further elevation in white count today concerning for possible persistent infection agree with changing antibiotics to meropenem
Would hold off on NG tube for now since she does not have significant gastric distention and also has not had any further nausea or vomiting for the past 2 days, also her tumor is at the GE junction involving the distal esophagus and mostly the
cardia
She has been accepted in transfer to [place] under the care of her oncologist
If unable to tolerate oral intake may need to start her on TPN soon
Discussed with Dr. Magallanes
Subjective
Subjective
Date of Service: November 21, 2024
GI was reconsulted for worsening abdominal distention earlier today and abdominal pain. She says that she did receive Lasix and has had multiple episodes of urination since then and feels that her abdominal distention has improved. Also reviewed
the repeat CT scan results which shows small bowel inflammation with possible PSBO related to the inflammation but does not show significant gastric distention (done without oral contrast though). She has not had any vomiting for the past 2 days.
She did have a bowel movement today no blood in the stool. She had another bowel movement yesterday but overall the diarrhea has markedly improved. She is afebrile. Her WBC count went up to 28.1, her antibiotics were switched today to meropenem
by the primary team Dr. Magallanes.
Objective
Data Reviewed
Laboratory Data:
Laboratory Results
11/21/24 11:55
Laboratory Tests
11/21/24 11/21/24
05:03 10:48
WBC 28.1 H
Hgb 8.3 L
Plt Count 95 L
Sodium 131 L
Potassium 3.0 L
Chloride 108 H
Carbon Dioxide 22
BUN 27 H
Creatinine 0.7
Glucose 97
Calcium 6.4 L*
Laboratory Results
Magnesium 2.1 mg/dl (1.6-2.3) 11/18/24 04:30
Total Bilirubin 2.9 mg/dl (0.2-1.3) H 11/20/24 04:08
AST 46 U/L (14-36) H 11/20/24 04:08
ALT 34 U/L (0-35) 11/20/24 04:08
Alkaline Phosphatase 79 U/L (38-126) 11/20/24 04:08
Lipase 43 U/L (23-300) 11/15/24 06:28
11/21/2024 CT abdomen and pelvis with IV contrast no Oral contrast
IMPRESSION:
Interval development of a small right and trace left pleural effusion with adjacent compressive atelectasis.
Mild esophageal reflux.
Progressive diffuse diminished attenuation heterogeneous enhancement of liver. Consider hepatocellular injury with acute hepatic failure, such as inflammation/hepatitis or congestion. Advise correlation with liver function tests.
Mid to distal ileal circumferential small bowel wall thickening. Previously, this was described as involving the sigmoid colon. There is no associated pneumatosis. However, this appears to contribute to an element of functional obstruction, with
otherwise mild fluid distention of the more proximal small bowel. Consider possible infectious or inflammatory process. Ischemic process not entirely excluded. Recommend correlation with lactate levels.
Mild ascites has developed. No focal collection or abscess. No free air.
Third spacing has progressed.
Vital Signs and I&O:
Vital Signs
Temp Pulse Resp BP Pulse Ox
97.3 F 74 18 109/60 99
11/21/24 15:30 11/21/24 15:30 11/21/24 15:30 11/21/24 15:30 11/21/24 15:30
I&O
11/20/24 11/21/24 11/22/24
06:59 06:59 06:59
Intake Total 840 / 840
Balance 840 / 840
Physical Exam
Physical Exam
Cardiology: Normal Sinus Rhythm
Pulmonary: Clear
GI: Other (Soft, distended, tympanic , mild diffuse tenderness , no rebound guarding or rigidity , hypoactive bowel sounds)
[2024-11-21] MEDS: STERILE WATER FOR INJECTION 20 ML IV (16:48)
[2024-11-21] MEDS: CARAFATE SUSPENSION 1 GM PO (21:03)
[2024-11-21] MEDS: FLUSH (NSS) 2 FLUSH IV (21:06)
[2024-11-21] MEDS: AMBIEN 5 MG PO (23:05)
[2024-11-21 23:26] VITALS: BP 101/60
--- NOTE | 2024-11-22 00:30 | PTCARENOTE ---
Patient placed on purewick during dayshift. Device does not appear to be working properly - entire set up replaced, purewick changed. Random bladder scan requested by MD performed, showing >600mls. Patient able to void, stating she was scared to go
since the device wasn't working last time. PVR showing 375mls now. Spoke with URIEL Young while rounding, will monitor future scans. Continue to encourage patient to void. No further intervention at this time. Will monitor.
[2024-11-22] MEDS: STERILE WATER FOR INJECTION 20 ML IV ×3 (01:35→16:28)
[2024-11-22] MEDS: MERREM 1000 MG IV ×3 (01:35→16:28)
[2024-11-22 01:58] LABS: Blood Urea Nitrogen 19 mg/dl (7-17); Calcium 5.5 mg/dl (8.4-10.2); Carbon Dioxide 18 mmol/L (22-30); Chloride 114 mmol/L (98-107); Estimated Creatinine Clearance 90 ml/min; Glucose 90 mg/dl (70-99); Potassium 2.8 mmol/L (3.5-5.1); Sodium 134 mmol/L (135-145); eGFR > 60.00
[2024-11-22] MEDS: CALCIUM GLUCONATE 100 IV ×2 (03:42→13:27)
[2024-11-22] MEDS: KCL 270 MEQ IV (04:20)
[2024-11-22 06:00] VITALS: BMI 31.0
[2024-11-22] MEDS: REGLAN 5 MG IV ×2 (06:00→14:12)
[2024-11-22] MEDS: LR 1000 IV (06:01)
[2024-11-22 07:00] VITALS: BP 105/61
[2024-11-22] MEDS: CARAFATE SUSPENSION 1 GM PO ×3 (08:35→16:31)
[2024-11-22] MEDS: PROTONIX IV 40 MG IV (08:38)
[2024-11-22] MEDS: NSS (PRESERVATIVE FREE) 10 ML IV (08:39)
[2024-11-22] MEDS: MUCINEX 600 MG PO (10:22)
[2024-11-22] MEDS: KCL 160 MEQ IV (11:26)
--- NOTE | 2024-11-22 12:07 | W.PN.HOSP.TC ---
Today's Communication/Plan
-
Recheck CBC/BMP
replace potassium/calcium as needed
liquid diet as tolerated
continue symptomatic care for n/v
waiting transfer to [facility]
Assessment / Plan
Assessment / Plan
CR abd obstruction series
1. Mild gaseous distention of the small bowel and colon, with air-fluid levels on the decubitus view. Air is seen to the level of the rectum.
2. Overall, findings are suggestive of adynamic ileus or distal colonic partial obstruction. Findings are similar compared to prior plain film of the abdomen dated 11/18/2024.
3. There were findings of severe distal colitis on prior CT dated 11/15/2024, which may account for the findings on the current study.
CT a/p 11/21
Interval development of a small right and trace left pleural effusion with adjacent compressive atelectasis.
Mild esophageal reflux.
Progressive diffuse diminished attenuation heterogeneous enhancement of liver. Consider hepatocellular injury with acute hepatic failure, such as inflammation/hepatitis or congestion. Advise correlation with liver function tests.
Mid to distal ileal circumferential small bowel wall thickening. Previously, this was described as involving the sigmoid colon. There is no associated pneumatosis. However, this appears to contribute to an element of functional obstruction, with
otherwise mild fluid distention of the more proximal small bowel. Consider possible infectious or inflammatory process. Ischemic process not entirely excluded. Recommend correlation with lactate levels.
Mild ascites has developed. No focal collection or abscess. No free air.
Third spacing has progressed.

Neutropenic enterocolitis
Nausea/vomiting - Refractory to treatment
Presumed adynamic ileus
- ER provider discussed with [place] oncology Dr. Live Song - recommend neutropenic precautions, and broad spectrum abx for her neutropenic colitis.
- Suspected from infectious enteritis/infectious colitis
- Blood cs neg.
- 11/18 Abd xr did not show any signs of ileus/sbo, abd exam remains relatively benign.
- 11/19 Abd xr obstructive series showing contrast passing through with possibility of adynamic ileus or distal colonic partial obstruction.
- Not able to tolerate oral contrast likely, will do a CT abdomen with IV contrast only
- 11/21 Case discussed with primary oncology goal team and patient has been accepted for transfer to [place] unfortunately transfer may not happen over weekend. Discussed with Dr. López agustin and recommended patient to be transferred to [facility] as well .
Discussed possible endoscopic NG tube placement for gastric decompression with control clerk auditing GI for temporary measure, who is planning to monitor the patient over the weekend.
- 11/[address] abdomen pelvis showing mid to distal small bowel enhancement suggestive of ongoing infectious versus inflammatory process.
Stomach Cancer
-Patient's oncologist (Dr. Osuna) called emergency room physician, Dr. Joselin Reynolds, who spoke directly to Dr. Osuna. Dr. Osuna said if he could be of service during the admission his number is [phone].
Recent UTI
-Denied any further UTI symptoms as of 11/15/24
-Did not finish Macrobid given hospitalization
-On antibiotics as above
Non-Anion Gap Metabolic Acidosis - resolved
-Maintain on bicarb infusion per nephro
Hypotension - Improved
-Likely from low albumin and diarrhea
Hypocalcemia
-corrected Ca is in lower normal range
-got 1 g ca in night, will repeat to help with ileus recovery
Near Syncope prior to arrival
-Likely from dehydration and hypovolemia
Neutropenia
Pancytopenia - Improving
Thrombocytopenia - Improving
Leukocytosis - New
-Neutropenic precautions
-No platelets transfusion unless platelets down to 10
-If patient is bleeding, will also need to transfuse platelets
-Regular products for platelets are fine.
-Patient have new leukocytosis developing now with total WBC of 28K. Change cefepime and Flagyl to Merrem, translocation of gut bacteria?
Acute Hyponatremia
-getting close to baseline, presumed with no to low solute intake and pre-admission diarrhea related
Double vision
- no other neurological issues
- complaining of some double vision, CT head w/o contrast neg. will check MR brain if symptoms persist and patient can tolerate.
History of Crohn's Disease -- Oncologist consulted gastroenterology who said that no active Crohn's Disease currently
Osteoarthritis
History of Basal Cell Carcinoma
History of Colon Polyp
History of Delayed Emergence from Anesthesia
History of Esophageal Ulcer
History of Hiatal Hernia
Osteoporosis
DVT Prophylaxis: SCDs. No chemical DVT prophylaxis given thrombocytopenia.
Code Status: Full Code
11/22 updated at bedside
Total time spent ; 53 mins
Anticipated Discharge: 24 - 48 hours
Subjective/Interval History
-
Date of Service: November 22, 2024
Patient feeling bit better today
Able to keep liquid diet down
No reported bowel movement
Sleeping comfortably during the visit
Objective Data
-
Labs:
Laboratory Results
11/22/24 11/22/24 11/22/24
01:05 10:53 10:55
WBC Pending
Hgb Pending
Hct Pending
Plt Count Pending
Sodium 134 L Pending
Potassium 2.8 L Pending
Chloride 114 H Pending
Carbon Dioxide 18 L Pending
BUN 19 H Pending
Creatinine 0.6 Pending
Glucose 90 Pending
Calcium 5.5 L* Pending
Vital Signs:
Vital Signs
Temp Pulse Resp BP Pulse Ox
97.9 F 75 18 105/61 98
11/22/24 07:00 11/22/24 07:00 11/22/24 07:00 11/22/24 07:00 11/22/24 07:00
I&O
11/21/24 11/22/24 11/23/24
06:59 06:59 06:59
Intake Total 840 / 840 1570 / 1570
Output Total 945 / 945
Balance 840 / 840 625 / 625
Review of Systems
-
Unable to obtain full review of systems at this time due to: Other (patient sleeping/sedated?)
Physical Exam
-
General: Negative Respiratory Distress
HEENT: Oxygen
GI: Soft and Nondistended; Negative Normal Bowel Sounds (decreased Bowel sounds)
Musculoskeletal: Edema, Right Lower Extrem and Edema, Left Lower Extrem
Neuro: Negative Awake or Alert
--- NOTE | 2024-11-22 13:32 | CM ---
Patient seen at bedside with
IA completed
Lives with in an in-law suite, 16 steps to enter
PLOF: Independent
Denies DME
Denies VN/rehab
Per hospitalist patient to be transferred today to [place]
IMM explained & signed. In chart
PCP: Leatha Urban
Pharmacy: [address] [facility]
PLAN: hospital to hospital transfer today, [place]
[2024-11-22 14:02] LABS: Hematocrit 28.7 % (37.0-47.0); Hemoglobin 9.8 g/dL (12.0-16.0); Mean Corp Hgb Conc. 34.1 g/dL (33.0-37.0); Mean Corpuscular Volume 89.1 fL (81.0-99.0); Platelet Count 176 10^3/uL (130-400); Red Cell Dist. Width 17.2 % (11.5-14.5)
--- NOTE | 2024-11-22 14:04 | W.PN.NEPH.PH ---
Today's Communication / Plan
-
Replete electrolytes
Assessment/Plan
-
Impression:
Hyponatremia
NG Metabolic Acidosis (AG 3)
Hypocalcemia
Diarrhea/abdominal pain/enterocolitis
ileus
History of stomach cancer with recent chemotherapy at [facility] 1 week prior (FLOT + Durvalumab)
History of Crohn's disease
History of stroke
Pancytopenia/neutropenia
Plan:
Hyponatremia:
-Now up to 130
-Likely a function of volume depletion and impaired solute intake, low MAP we will also SIADH in setting of gastric malignancy
Hypotension likely a function of compromised effective circulating volume due to hypoalbuminemia and diarrhea
Hypocalcemia:
- Obtain intact PTH 100
Calcium rider prn
Check vitamin D level ordered: low at 18.2 , replete with ergocalciferol x 1 completed
Pending transfer to [facility]
Swelling improved with diuretic
Corrected calcium 7.2
Discussed with family at bedside
-
-
Date of Service: November 22, 2024
CC / HPI / ROS
-
Chief Complaint:
Acute kidney injury
Hyponatremia
History of Present Illness:
Diarrhea colitis history of stomach cancer with mild ENMA and hyponatremia and hypocalcemia with low albumin
Hyponatremia unchanged with serum sodium level of 130
Hemodynamically stable
Review of Systems:
Continues to have abdominal pain
No chest pain or shortness of breath
Labs
-
Labs:
WBC 37.5 10^3/uL (4.8-10.8) H 11/22/24 13:25
RBC 3.22 10^6/uL (4.20-5.40) L 11/22/24 13:25
Hgb 9.8 g/dL (12.0-16.0) L 11/22/24 13:25
Hct 28.7 % (37.0-47.0) L 11/22/24 13:25
Plt Count 176 10^3/uL (130-400) D 11/22/24 13:25
eGFR > 60.00 11/22/24 01:05
Albumin 1.9 g/dl (3.5-5.0) L 11/20/24 04:08
Physical Exam
-
Vital Signs:
Vital Signs
Temp Pulse Resp BP Pulse Ox
97.9 F 75 18 105/61 98
11/22/24 07:00 11/22/24 07:00 11/22/24 07:00 11/22/24 07:00 11/22/24 07:00
Respiratory:: Bilateral: Coarse
Abdomen:: Tender
Bowel Sounds:: Decreased
Extremity Edema:: +2: Bilateral:
Gleason Catheter: No
[2024-11-22 14:53] LABS: Blood Urea Nitrogen 21 mg/dl (7-17); Calcium 7.3 mg/dl (8.4-10.2); Carbon Dioxide 23 mmol/L (22-30); Chloride 108 mmol/L (98-107); Estimated Creatinine Clearance 76 ml/min; Glucose 115 mg/dl (70-99); Potassium 4.0 mmol/L (3.5-5.1); Sodium 132 mmol/L (135-145); eGFR > 60.00
[2024-11-22 15:25] VITALS: BP 102/61
[2024-11-22 19:28] VITALS: BP 105/60
[2024-11-26 16:58] LABS: Calprotectin, Fecal 456 ug/g (<=49)
== END 2024-11-22 19:30 | disposition short-term general hospital (02) | DRG 391 ==
LOC: 3 WEST ACU 13:08
PROVIDERS: Emergency Medicine; Internal Medicine Hematology & Oncology; Internal Medicine Nephrology; ADMITTING PHYSICIAN Hospitalist; ATTENDING PHYSICIAN Hospitalist; CONSULT PHYSICIAN Internal Medicine Gastroenterology; CONSULT PHYSICIAN Internal Medicine Hematology & Oncology; CONSULT PHYSICIAN Specialist; EMERGENCY PHYSICIAN Student in an Organized Health Care Education/Training Program; FAMILY PHYSICIAN Emergency Medicine
DX: A09 Infectious gastroenteritis and colitis, unspecified (principal); J69.0 Pneumonitis due to inhalation of food and vomit; C16.0 Malignant neoplasm of cardia; D61.818 Other pancytopenia; E87.20 Acidosis, unspecified; N17.9 Acute kidney failure, unspecified; K56.0 Paralytic ileus; E22.2 Syndrome of inappropriate secretion of antidiuretic hormone; D84.89 Other immunodeficiencies; R55 Syncope and collapse; E78.00 Pure hypercholesterolemia, unspecified; E88.09 Other disorders of plasma-protein metabolism, not elsewhere classified; I95.9 Hypotension, unspecified; E86.0 Dehydration; M81.0 Age-related osteoporosis without current pathological fracture; E86.1 Hypovolemia; K44.9 Diaphragmatic hernia without obstruction or gangrene; E83.51 Hypocalcemia; M19.90 Unspecified osteoarthritis, unspecified site; H53.2 Diplopia; E80.6 Other disorders of bilirubin metabolism; Z96.652 Presence of left artificial knee joint; Z87.891 Personal history of nicotine dependence; Z82.3 Family history of stroke; Z80.3 Family history of malignant neoplasm of breast; Z88.0 Allergy status to penicillin; Z87.440 Personal history of urinary (tract) infections; Z92.21 Personal history of antineoplastic chemotherapy; Z86.73 Personal history of transient ischemic attack (TIA), and cerebral infarction without residual deficits; Z85.828 Personal history of other malignant neoplasm of skin; Z86.0100 Personal history of colon polyps, unspecified; Z87.19 Personal history of other diseases of the digestive system; Z87.11 Personal history of peptic ulcer disease
CPT/HCPCS: 70450; 71045; 74018; 74022; 74177; 80048; 80053; 81003; 81015; 82248; 82306; 82330; 82728; 83010; 83550; 83615; 83690; 83735; 83970; 83993; 84300; 85025; 85027; 85045; 85652; 86140; 87040; 87045; 87046; 87077; 87086; 87427; 87798; 89055; 93005; 96361; 96374; 96375; 99285; J2185; J7030; Q9967

== ENCOUNTER 2024-12-22 08:06 | Inpatient (IN) | payer OTHER, SELFPAY ==
[2024-12-19] VITALS (7 sets, daily range): BP systolic 143–156; BP diastolic 75–98; BMI 30.1
[2024-12-19 13:02] LABS: Glucose - Point of Care 105 mg/dl (70-99)
--- NOTE | 2024-12-19 14:22 | CON.NEURO4 ---
Addendum entered and electronically signed by Kip Levine MD 12/19/24 15:50:
Studies reviewed.
I have personally examined the patient. I reviewed and agree with the INSURANCE INVESTIGATOR's Note.
My addenda:
Awake, alert, interactive. No acute distress.
Speech intact.
Follows 2-step requests w/o difficulty. No tremor.
Extra-ocular movements grossly intact.
Facial movements full and symmetric. Hearing intact to normal conversational volume.
Normal UE movements bilaterally.
Neck: full ROM.
Chest: no dyspnea
Heart: no JVD
Ext: (-) Clubbing, (-) Cyanosis, (-) Edema
IMPRESSIONS/RECOMMENDATIONS:
Abrupt onset of weakness in the right arm and leg with speech change. Symptoms began 1 day ago placing the patient outside benefit window for the use of either tenecteplase or intra-arterial thrombectomy. There is a low possibility that her
chemotherapeutic medications are involved
Check CTA to see if the patient has a significant stenosis which if remediated will reduce the risk of future stroke
Initiate aspirin and clopidogrel in hopes of reducing risk of future stroke
Would discontinue the use of clopidogrel after 21 days, maintain aspirin likely lifelong
Check MRI of brain to determine if the patient has had an obvious ischemic stroke
Rehabilitation evaluation
DVT prophylaxis
Monitor platelet count
D/W patient / family / nursing
All questions answered.
Will continue to follow patient.
Original Note:
Documented by User: Ilana Luong NP 12/19/24 15:29
Consultation - Neurology 4
-
CONSULTING PHYSICIAN: Kip Levine MD
REFERRING PHYSICIAN: MARIAM/Dr. Chavez
DICTATED BY: PETER Kothari
DATE/TIME OF REQUEST: 12/19/24
DATE/TIME OF CONSULTATION: 12/19/24
Reason for Consultation: Speech difficulty
History of Present Illness:
This is a 69-year-old right-handed female who has presented to the hospital with report of slurred speech and right-sided weakness. Patient has Stage 3 gastric cancer diagnosed 08/2024 and has been undergoing FLOT +durvalumab chemotherapy at [facility] s/p 3 cycles. She was recently hospitalized at from 11/15/24-11/22/24 with diarrhea and syncope. She reports that yesterday morning (12/18/24) around 1100 she started having difficulty getting her words out, this persisted for a few hours but
seemed to improve. Then around 2000 while on the phone she reports her speech suddenly sounded slurred, like she was 'drunk.' She figured she was tired and went to bed. This morning (12/19/24), around 0800 she noticed that her right arm felt weak and
she kept hitting incorrect buttons on her cell phone. Then around 1000 she reports that her right leg started feeling weak and she was having trouble walking. CT head was obtained on arrival in the ER and is negative for any acute abnormalities, CTA
head/neck final read is pending. NIHSS is 4 for right facial drooping, right arm and leg drift, and mild dysarthria. She is not a candidate for TNK/IAT due to outside of time window. She denies any headache, dizziness, vision changes, swallowing
difficulty, and numbness. She does note having daily abdominal pain, primarily in the evening. Platelet count during her previous admission was down to 20 but is currently 116. She is not taking any blood-thinning medications.
Past Medical History: Gastric cancer, remote hx of Crohn's, tee rectal fistulas, HLD, TIAs, basal cell carcinoma, osteoarthritis, colon polyps, PUD, hiatal hernia, osteoporosis
Surgical History: hemorrhoidectomy, sphincterotomy, L TKR, rotator cuff repair, MOHs
Family History: Father- brain tumor. Sister- CVA.
Social History: Former smoker. Occasional alcohol. No illicit drug use.
Allergies: Penicillins.
Home Medications: See below.
Review of Symptoms:
Patient denies any fever, headache, chest pain, shortness of breath, GI or symptoms.
�Per the HPI.�All systems are reviewed negative except above.
Physical Exam:
The patient is afebrile, abdomen is nondistended, breathing is unlabored, skin is warm and dry, +2 BLE edema.
NIH Stroke Scale:
I performed the NIH stroke scale on the patient on 12/19/24 at 1430. The patient scored 4 points on the NIH stroke scale assessment, which were assigned as follows: See below.
Neurologic Examination:
The patient is awake, alert and oriented x 3. She is able to follow commands and answer questions appropriately. There is no aphasia. Speech is mildly dysarthric. On cranial nerve assessment, pupils are 3 mm bilateral, round and reactive to light
and accommodation. Visual hernandez are full. Extraocular movements are intact. Facial sensations are intact and bilaterally symmetrical, there is mild right facial drooping. Hearing is intact bilaterally to normal conversation volume. Tongue palate
and uvula are midline. Sternocleidomastoid strengths are full bilaterally. Motor strengths are 5/5 left upper and lower, 5-/5 RUE, and 4-/5 RLE on medical research [place] scale. There is drift in the RUE and RLE. No involuntary movement noted. Deep
tendon reflexes are 2+ bilateral upper and lower extremities and Babinski is absent bilaterally. There was no extinction noted on double simultaneous stimulation. Coordination is intact by finger to nose bilaterally.
Lab Results: See below.
Neuro Imaging:
1. CT Head 12/19/24: No acute intracranial abnormality.
2. CTA head/neck 12/19/24: final read pending
Differentials for the patient's presentation include:
1. Likely a left hemisphere acute ischemic stroke producing symptomatology; etiology possibly hypercoagulable state in the setting of cancer.
Patient has the following risk factors for their symptoms: Cancer, age
IV Tenecteplase/IAT candidacy: She is not a candidate for TNK/IAT due to outside of time window.
Recommendations:
-Start DAPT with aspirin 81mg and clopidogrel 75mg daily for 21 days. After 21 days, stop clopidogrel and continue aspirin 81mg daily indefinitely.
-MRI brain noncontrast pending.
-Goal normotension as symptoms started >24 hours ago.
-LDL goal <70. Lipid panel is pending. Start atorvastatin 40mg daily.
-Goal normoglycemia, hbA1c is pending.
-NIHSS and neurological checks per unit guidelines.
-Provide patient with a stroke education packet.
-PT/OT/ST evaluations.
-DVT prophylaxis.
Discussed patient care with: Dr. Levine, the patient, patient's family
Vital Signs and Labs
-
Vital Signs and Labs:
Vital Signs
Temp Pulse Resp BP Pulse Ox
99.0 F 90 16 156/98 98
12/19/24 12:51 12/19/24 12:51 12/19/24 12:51 12/19/24 12:51 12/19/24 12:51
Medications
-
Home Medications
�Medication �Instructions �Recorded
acetaminophen 325 mg tablet 650 mg PO Q6HPRN PRN mild pain 11/15/24
(Tylenol)
dexamethasone 4 mg tablet 4 mg PO DIRECTED 11/15/24
dicyclomine 20 mg tablet 20 mg PO Q6HPRN PRN abdominal 11/15/24
cramping
ibuprofen 400 mg tablet 400 mg PO Q8HPRN PRN mild pain 11/15/24
loperamide 1 mg/7.5 mL oral liquid 2 mg PO Q6HPRN PRN dairrhea 11/15/24
loratadine 10 mg tablet (Claritin) 10 mg PO DIRECTED 11/15/24
ondansetron HCl 8 mg tablet 8 mg PO Q8HPRN PRN nausea 11/15/24
pantoprazole 40 mg tablet,delayed 40 mg PO DAILY 11/15/24
release (Protonix)
prochlorperazine maleate 10 mg 10 mg PO Q6HPRN PRN nausea 11/15/24
tablet (Compazine)
zolpidem 5 mg tablet (Ambien) 5 mg PO HS sleep 11/15/24
NIH Stroke Score
Subsequent NIH Scale
Date of Subsequent NIH Scale: 12/19/24
Time of Subsequent NIH Scale: 14:30
NIH Stroke Score
Level of Consciousness: 0 - Alert
LOC Questions: 0-Answers both correctly
LOC Commands: 0-Performs both correctly
Best Horizontal Gaze: 0-Normal
Visual Hernandez: 0=Normal, no visual loss
Facial Palsy: 1=Minor paralysis
Motor - Right Arm: 1=Drift < 10 seconds
Motor - Left Arm: 0=No drift 10 seconds
Motor - Right Le-Drift < 5 seconds
Motor - Left Le-No drift 5 seconds
Limb Ataxia: 0-Absent
Sensation: 0-Normal
Best Language: 0-No aphasia
Dysarthria: 1-Mild slurring
Extinction and Inattention: 0-No abnormality
NIH Total Score:: 4
Modified [place] (mRS) Score
Modified [place] Scale (mRS): Moderately severe disability. Unable to attend to bodily needs/walk.
Score: 4
Alteplase Contraindication
Inclusion and Exclusion criteria reviewed: Yes
Reasons for NON-Tx with Thrombolytics ABSOLUTE Exclusions: Greater than 4.5 hrs from onset of sxs
IAT Contraindications: Imaging doesn't show large vessel occlusion as cause of stroke

Documented by User: Kip Levine MD 12/19/24 15:40
NIH Stroke Score
NIH Stroke Score
NIH Total Score:: 4
Modified [place] (mRS) Score
Score: 4
--- NOTE | 2024-12-19 14:40 | ED.CVA ---
History of Present Illness
General
Chief Complaint: CVA/TIA Symptoms
Source: patient and family
Exam Limitations: none
Time Seen by Provider: 12/19/24 13:59
Onset of Stroke Symptoms
Onset of symptoms known: Yes
Date of onset of symptoms: 12/18/24
Time of onset of symptoms: 11:00
History of Present Illness
History of Present Illness:
69-year-old female noted some trouble with her speech yesterday around 11 AM. Trouble finding words but also slightly slurred. Family felt she was talking almost like she was drunk last evening. Today around 8 AM she noted trouble writing with
her right hand and around 10 AM noted trouble walking and weakness to the right leg. She has a known history of gastric CA. She is on chemotherapy. She has no known metastasis. She is on no thinners.
Past History
Past History
ED Past Medical History: Cancer (Gastric CA), CVA, Hypercholesterolemia and Other (TIA/Crohn's disease )
ED Past Surgical History: None and Orthopedic
Social History
Tobacco: Non-smoker
Alcohol: Occasional
Drug: None
Personal:
Living: with family
Family History
Family History: Other (Mother with breast cancer, father with a brain tumor)
Review of Systems
Review of Systems
All Other Systems: Not applicable
Respiratory: Reports no symptoms
Cardiac: Reports no symptoms
Phy Exam
Physical Exam
Physical Exam:
GENERAL: Alert and oriented in no apparent distress
EYE: Orbits normal.
NECK: Supple, no carotid bruit
ENT: Pharynx without erythema
CARDIAC: Regular rate and rhythm without any obvious murmurs.
LUNGS: Clear breath sounds,normal
ABDOMEN: Soft, without focal tenderness or distention
NEUROLOGICAL: Alert and oriented , slight right facial droop. Questionable right arm drift. Weakness to the right leg although able to lift. Sensation intact. Vision intact.
SKIN: Warm and dry, no rash or lesion, no discoloration, skin intact.
MUSCULOSKELETAL: No edema,no deformity.Good color
PSYCH: Normal and appropriate interaction.
Scores
NIH Stroke Score
Level of Consciousness: 0 - Alert
LOC Questions: 0-Answers both correctly
LOC Commands: 0-Performs both correctly
Best Horizontal Gaze: 0-Normal
Visual Hernandez: 0=Normal, no visual loss
Facial Palsy: 1=Minor paralysis
Motor - Right Arm: 1=Drift < 10 seconds
Motor - Left Arm: 0=No drift 10 seconds
Motor - Right Le-Drift < 5 seconds
Motor - Left Le-No drift 5 seconds
Limb Ataxia: 0-Absent
Sensation: 0-Normal
Best Language: 1-Mild aphasia
Dysarthria: 0-Normal
Extinction and Inattention: 0-No abnormality
NIH Total Score:: 4
Course
Orders/Labs/Results
Orders:
Orders
12/19/24 13:02
CT Head W/o Iv Contrast Urgent
Comment:
Reason For Exam: R leg weakness, slow speech, L sided facial droop
12/19/24 14:12
Electrocardiogram (*1) Stat
Reason for Study: Other
Other Reason for Exam: neuro symptoms
CT Head & Neck Angio W/wo IV Urgent
Comment:
Reason For Exam: Right sided weakness
Cardiac Monitoring- Treatment ONCE
EKG- Treatment ONCE
12/19/24 14:31
Complete Blood Count/With Diff Urgent
Comprehensive Metabolic Panel Urgent
Folate Urgent
TSH Reflex To Free T4 Urgent
Vitamin B12 Urgent
Comment: FOLATE, TSH REFLEX, & B12 ADDED ON BY FLOOR 3:30PM 12-19-24
12/19/24 15:25
Add On- LAB Routine
Tests Added?: folate, TSH reflex, B12
12/19/24 15:29
MR Brain Without Contrast Routine
Comment:
Reason For Exam: Right-sided weakness, dysarthria
Recent pill cam endoscopy?: No
12/19/24 15:59
Admit/Transfer Patient As Directed
Co-Sign Provider:
Level of Care: Observation services
Assign to:: Telemetry
Physician / Group: Hospitalist
Diagnosis: CVA/TIA
Reason for Telemetry: Arrhythmia
Date to Stop Telemetry: 12/22/24
Time to Stop Telemetry: 11:00
Reason for Hospitalization: ABOVE
12/19/24 16:00
Aspirin Chewable [Low Strength Aspirin] 81 mg PO DAILY
Clopidogrel Bisulfate [Plavix] 75 mg PO DAILY
PRN Pain Medication Management As Directed
May give lesser potent ordered pain med per pt: Yes
preference::
Protocol:: Medication orders for pain may be administered in a
manner that supports deferring to patient preference
when the pt is:
- Requesting an ordered lesser potent pain medication.
Least to most potent pain medications are defined
as: acetaminophen < NSAID < tramadol < opioids
(morphine, oxycodone, hydromorphone).
- Requesting a lesser dose of the same medication IF
ORDERED.
- Requesting a less intrusive route of administration
if both routes are prescribed by the provider (PO <
IV).
12/19/24 16:02
Code Status As Directed
Resuscitation Status: Full Code
12/19/24 16:04
Potassium Chloride [KCl] 40 meq PO NOW STA
12/19/24 17:39
Acetaminophen [Tylenol/Feverall] 650 mg RECTAL Q4HPRN PRN
Acetaminophen [Tylenol] 650 mg PO Q4HPRN PRN
Prochlorperazine [Compazine] 10 mg PO Q6HPRN PRN nausea
Sucralfate Suspension [Carafate Suspension] 1 gm PO AC
12/19/24 17:39
Case Management Consult ONCE
Case Management Consult: Discharge Planning
Comment: stroke/tia
DIETARY IP CONSULT Routine
Reason for Consult: stroke/TIA
NEUROLOGY CONSULT Urgent
Consulting Provider: Kip Levine
Was physician already notified: Yes
Home Stager Urgent
Activity As Directed
Activity Level: As Tolerated
NIH Stroke Scale As Directed
Directions: Per protocol
Comment: every shift and with any change in condition or mental status
Neurological Checks As Directed
Frequency: q4h
Additional Instructions:: q4h x 24h upon admission to the floor, then qshift & with any change in condition
and mental status
Patient Education As Directed
Type: Stroke education packet
Comment: provide to patient and family
Pneumatic Compression Sleeves As Directed
Type: Knee high
Swallow Screening CVA/TIA ONLY As Directed
Comment: NPO until swallowing screening completed
If patient FAILS swallow screening:: NPO, Speech Therapy consult, Aspiration Precautions
If patient PASSES swallow screening, diet:: Regular
Above diet order entered?: Yes- passed screening
Vital Signs As Directed
Frequency: Per unit guidelines
Ot Eval And Treat Routine
Pt Eval And Treat Routine
Activity Level: As Tolerated
Speech Therapy Eval & Treat Routine
DX Deep Vein Thrombosis Video Routine
12/19/24 17:44
Ondansetron HCl [Zofran] 8 mg PO Q8HPRN PRN
12/19/24 22:00
Acetaminophen [Tylenol] 650 mg PO HS
Melatonin 5 mg PO HS
Polyethylene Glycol Powder [Miralax] 17 grams PO HS
Sennosides [Senokot] 17.2 mg PO HS
Zolpidem Tartrate [Ambien] 5 mg PO HS
12/20/24 07:53
Basic Metabolic Panel IN AM
Cardiovascular Evaluation IN AM
Complete Blood Count/With Diff IN AM
Hemoglobin A1c [Glycohemoglobin (HgbA1c)] IN AM
12/20/24 08:00
Pantoprazole [Protonix] 40 mg PO DAILY
12/22/24 11:00
DC Protocol for Telemetry ONCE
Abnormal Lab Results
12/19/24 12/19/24
13:01 14:31
WBC 4.2 L 10^3/uL
(4.8-10.8)
RBC 2.65 L 10^6/uL
(4.20-5.40)
Hgb 8.1 L g/dL
(12.0-16.0)
Hct 24.6 L %
(37.0-47.0)
MCHC 32.9 L g/dL
(33.0-37.0)
RDW 17.2 H %
(11.5-14.5)
Plt Count 116 L 10^3/uL
(130-400)
Immature Gran % 0.7 H %
(0-0.5)
Potassium 3.4 L mmol/L
(3.5-5.1)
Chloride 111 H mmol/L
(98-107)
Creatinine 0.5 L mg/dL
(0.6-1.0)
Glucose 104 H mg/dl
(70-99)
Calcium 8.0 L mg/dl
(8.4-10.2)
Total Protein 5.0 L g/dl
(6.3-8.2)
Albumin 2.3 L g/dl
(3.5-5.0)
Vitamin B12 > 1000 H pg/ml
(465-931)
POC Glucose 105 H mg/dl
(70-99)
12/19/24 14:31
12/19/24 14:31
Vital Signs
Initial and Last Documented VS:
Initial Vital Signs
Temp Pulse Resp BP Pulse Ox
99.0 F 90 16 156/98 98
12/19/24 12:51 12/19/24 12:51 12/19/24 12:51 12/19/24 12:51 12/19/24 12:51
Last Documented Vital Signs
Temp Pulse Resp BP Pulse Ox
98.1 F 73 15 137/70 99
12/20/24 07:06 12/20/24 07:06 12/20/24 07:06 12/20/24 07:06 12/20/24 07:06
MDM/Problems Addressed
Differential Diagnosis Includes:
Patient with symptoms consistent with a CVA. Started yesterday at 11 AM. Clearly not a thrombolytic candidate. Likely also would not be an IAT candidate but borderline. Discussed MET with neurology. CTA ordered.
*Radiology
Radiology exam reviewed: radiology read reviewed (Negative head CT) and other (No acute findings. Thyroid nodule)
*Pulse Oximetry
SaO2: 98
Oxygen Mode of Delivery: Room air
Patient hypoxic: no
*EKG
Interpreted by ED Provider?: Yes
Interpretation: abnormal
Comparison EKG: changes noted
Heart Rate: 77
Rate: normal
Rhythm: sinus
[place]: normal axis
Interval: normal interval
QRS Pattern: low voltage
Ischemia: non-specific ST changes
*Track Laminating Machine Tender Interpretation
Rate: normal
Interpretation: normal
Heart Rate: 80
Rhythm: sinus
*Critical Care Note
Total Time (30-74mins, 75-104mins- exclusive of procedures): 40
Data Reviewed
Review of Other/Old Records Reveals: Labs, Records and Testing
Update Note
Update Note:
Family updated. Aware of need for thyroid nodule follow-up
ED Attending Note
-
Portions of this chart may have been created with voice recognition software.� Occasional wrong word or��sound alike� substitutions may have occurred due to the inherent limitations of voice recognition software.
Discharge Plan
Departure
Patient Disposition: Admit
Date of Disposition: 12/19/24
Time of Disposition: 14:53
Presentation/result/management discussed w/ accepting MD/DO: Neurology
Discharge Problem:
Acute CVA
Interventions
Interventions:
*General Assessment Last Done: 12/19/24 15:53
*Neglect/Abuse Screening Last Done: 12/19/24 14:14
*ED- Fall Risk Assessment Last Done: 12/19/24 15:53
*Nursing Disposition Last Done: 12/19/24 17:35
ED- Pulmonary Assessment Last Done: 12/19/24 14:03
ED- Neurological Assessment Last Done: 12/19/24 17:15
ED- Cardiac Assessment Last Done: 12/19/24 14:02
ED Swallowing Screen Last Done: 12/19/24 15:49
Discharge Date and Time
Discharge Date/Time: 12/19/24 17:40
[2024-12-19 14:42] LABS: Hematocrit 24.6 % (37.0-47.0); Hemoglobin 8.1 g/dL (12.0-16.0); Mean Corp Hgb Conc. 32.9 g/dL (33.0-37.0); Mean Corpuscular Volume 92.8 fL (81.0-99.0); Nucleated Red Blood Cells % 0 %; Platelet Count 116 10^3/uL (130-400); Red Cell Dist. Width 17.2 % (11.5-14.5)
[2024-12-19 14:54] LABS: ALT (SGPT) 15 U/L (0-35); AST (SGOT) 29 U/L (14-36); Albumin 2.3 g/dl (3.5-5.0); Alkaline Phosphatase 82 U/L (38-126); Blood Urea Nitrogen 15 mg/dl (7-17); Calcium 8.0 mg/dl (8.4-10.2); Carbon Dioxide 24 mmol/L (22-30); Chloride 111 mmol/L (98-107); Glucose 104 mg/dl (70-99); Potassium 3.4 mmol/L (3.5-5.1); Sodium 136 mmol/L (135-145); Total Protein 5.0 g/dl (6.3-8.2); eGFR > 60.00
--- NOTE | 2024-12-19 15:33 | HPS.HSE ---
Addendum entered and electronically signed by Jeff Jones MD 12/19/24 16:22:
This is an addendum to H&P written by Rosenda Park. �Patient seen and examined independently with resident.
69-year-old female past medical history of CVA, stomach cancer status post chemotherapy, pancytopenia/neutropenia, Crohn's disease, osteoarthritis, basal cell carcinoma, colon polyp, esophageal ulcer, hiatal hernia, osteoporosis, presenting with
difficulty with speech since yesterday 11 AM and trouble finding words. �Today at 8 AM noted difficulty writing with the right hand and at 10 AM noted trouble walking with weakness of the right leg.
Vital signs normal.
Labs show potassium 3.4. �Leukopenia with white cell count of 4.2. �Hemoglobin 8.1 close to baseline. �Platelets of 116.
CT head shows no acute abnormality. CTA head and neck negative.�
Concern for acute CVA. �Aspirin and Plavix. Check A1c and lipid panel. �Check MRI brain. �Neurology consulted.
Potassium repletion.�
Original Note:
Family Physician
-
Family Physician: Leatha Urban MD
Chief Complaint
-
Right-sided weakness
History of Present Illness
This is a 69-year-old female with past medical history of Stage III gastric cancer currently on chemotherapy At [facility], Crohn's disease, pulm edema, history of basal cancer, history of hiatal hernia who presents to [facility] for concerns for
right-sided weakness. The patient reports around 11 AM yesterday, she started having troubles with hands most especially on the right side. She reports she was dropping her phone but was not too concerned. And then at night, she started having
slurred speech and difficulty finding words. She reports both symptoms lasted less than a minute, she went to bed fine as usual, woke up this morning around 8 AM and started having difficulties with her speech again. In addition she reports she
was having difficulty writing with her right hand. At 10 AM, she was noted to have trouble walking and continued weakness to her right leg. She denied loss of consciousness, denied dizziness episode. At bedside, she admits right-sided weakness
still present, but her dysarthria has resolved.
Upon presentation to the ED, vitals with BP 156/98, pulse 90, temperature 99.0, respiratory rate 16, O2 sat 98% on room air. NIHSS in the ED was a 4 for right facial drooping, right arm and leg drift, mild dysarthria.
Medical History
Past Medical History
Past Medical History: Reports Other (Gastric cancer, Crohn's disease, perirectal fistulas, hyperlipidemia, basal cell carcinoma, osteoarthritis, colon polyps, PUD, hiatal hernia, osteoporosis)
Past Surgical History: Reports Orthopedic and Other (Hemorrhoidectomy, sphincterotomy)
Social History
Tobacco: Former Smoker
Alcohol: Occasional
Drug: None
Personal:
Living: With Family
Family History
Family History: Not pertinent
Allergies / Home Medications
Allergies reflects when Allergies were last updated in [employer].
Home Medications with original date entered in [employer]
Allergy/Medication List:
Allergies
Allergy/AdvReac Type Severity Reaction Status Date / Time
penicillin G Allergy Rash Verified 12/19/24 12:56
Penicillins Allergy Rash Verified 12/19/24 12:56
Home Medications
acetaminophen 325 mg tablet (Tylenol) 650 mg PO HS 11/15/24
dexamethasone 4 mg tablet 4 mg PO DIRECTED 11/15/24
loratadine 10 mg tablet (Claritin) 10 mg PO DIRECTED 11/15/24
ondansetron HCl 8 mg tablet 8 mg PO Q8HPRN PRN nausea 11/15/24
pantoprazole 40 mg tablet,delayed release (Protonix) 40 mg PO DAILY 11/15/24
prochlorperazine maleate 10 mg tablet (Compazine) 10 mg PO Q6HPRN PRN nausea 11/15/24
zolpidem 5 mg tablet (Ambien) 5 mg PO HS sleep 11/15/24
Senna Gummy 17.2 g PO HS 12/19/24
melatonin 10 mg chewable tablet 5 mg PO HS 12/19/24
polyethylene glycol 3350 17 gram oral powder packet (Miralax) 17 g PO HS 12/19/24
sucralfate 100 mg/mL oral suspension (Carafate) 10 ml PO AC 12/19/24
Review of Systems
-
A 12 point ROS was completed and negative except as noted: Yes
Constitutional: Reports Other (All review of systems obtained and negative except as documented in HPI)
Physical Exam
Vital Signs
Vital Signs
Temp Pulse Resp BP Pulse Ox
99.0 F 78 17 156/98 99
12/19/24 12:51 12/19/24 14:45 12/19/24 14:45 12/19/24 12:51 12/19/24 14:45
Physical Exam
General: Well Developed and No Apparent Distress
Respiratory: Clear
Cardiac: S1/S2 and Regular Rhythm
GI: Soft and Tender (Generalized tenderness to palpation all quadrants)
Musculoskeletal: Other (2+ bilateral edema lower extremity. 3/5 muscular strength right lower extremity otherwise 5/5 muscular strength bilateral upper extremity and left lower extremity)
Neuro: Awake, Alert, Oriented and AO x 3
Psych: Calm
Laboratory Results
-
12/19/24 14:31
12/19/24 14:31
Laboratory Results
Total Bilirubin 0.5 mg/dl (0.2-1.3) 12/19/24 14:31
AST 29 U/L (14-36) 12/19/24 14:31
ALT 15 U/L (0-35) 12/19/24 14:31
Alkaline Phosphatase 82 U/L (38-126) 12/19/24 14:31
Impression/Plan
-
Assessment/plan
#Acute right-sided weakness, dysarthria concern for CVA/TIA
-CT head- No acute intracranial abnormality.
-CTA head and neck- No acute intracranial abnormality. No CTA evidence for high-grade stenosis or occlusion of the [place] of [place] or the arterial vasculature of the neck.
-Check MRI
-Neurochecks Q6
-Check A1c, lipid panel, TSH
-Neurology input appreciated
-Start dual antiplatelet therapy with aspirin and clopidogrel for 21 days, then aspirin 81 mg indefinitely
-Atorvastatin 40 mg daily
-PT/OT/speech
#Hypokalemia
-Replete
#Gastric cancer on chemotherapy
-On chemotherapy with FLOT plus durvalumab S/p 3 cycles with most recent tx 11/07/2024
-Follows [facility]
#Pancytopenia
#Thrombocytopenia
-Monitor CBC
#History of Chron's disease
-On dicyclomine, loperamide
#Nodular enlargement of the right lobe of the thyroid gland
Outpatient thyroid ultrasound is recommended.
CODE STATUS FULL CODE
DVT prophylaxis SCDs
[2024-12-19] MEDS: LOW STRENGTH ASPIRIN 81 MG PO (15:49)
[2024-12-19] MEDS: PLAVIX 75 MG PO (15:49)
[2024-12-19] MEDS: KCL 40 MEQ PO (16:50)
--- NOTE | 2024-12-19 17:22 | CM ---
CM reviewed chart and met with pt and bedside in ED. Lives with in in law suite over daughter's garage, [address]
Independent in ADLs, personal care and ambulation at baseline. Currently using RW since recent admission.
PHOEBE reviewed and signed.
Current with [facility] for VN, PT and OT.
Recent [facility].
PCP: Leatha Urban
Pharmacy: [address]
CM will continue to follow for any discharge planning needs.
--- NOTE | 2024-12-19 18:10 | PTCARENOTE ---
Patient admitted in tpo room 414-2 AAOx3. VSS. NIH a 6. SR on telemetry. Patient alert, able to make needs known. Agreeable with using call strange for any and all assistance, states she will not get OOB.
[2024-12-19 18:21] LABS: Folate 5.7 ng/ml (2.76-20); Vitamin B12 > 1000 pg/ml (239-931)
--- NOTE | 2024-12-19 18:24 | PTCARENOTE ---
Upon arrival to unit NIH is scored as a 6. Previous NIH in ED has been a 2. Neurology (Dr. Corona and Dr. Levine) and Hospitalist Dr. Aguilar notified of change in assessment. No new orders at this time.
[2024-12-19] MEDS: CARAFATE SUSPENSION 1 GM PO (18:44)
[2024-12-19] MEDS: TYLENOL 650 MG PO (21:59)
[2024-12-19] MEDS: MELATONIN 5 MG PO (21:59)
[2024-12-19] MEDS: SENOKOT 17.2 MG PO (21:59)
[2024-12-19] MEDS: AMBIEN 5 MG PO (21:59)
[2024-12-19] MEDS: MIRALAX 17 GRAMS PO (21:59)
[2024-12-20] VITALS (8 sets, daily range): BP systolic 120–148; BP diastolic 66–78; PULSE 87–89; O2SAT 98–99; BMI 28.8
[2024-12-20 08:47] LABS: Blood Urea Nitrogen 13 mg/dl (7-17); Carbon Dioxide 18 mmol/L (22-30); Chloride 111 mmol/L (98-107); Estimated Creatinine Clearance 57 ml/min; Glucose 94 mg/dl (70-99); HDL Cholesterol 29 mg/dl; LDL Cholesterol, Calculated 49 mg/dl; Potassium 4.0 mmol/L (3.5-5.1); Sodium 137 mmol/L (135-145); Very Low Density Lipoprotein 39 mg/dl (0-30); eGFR > 60.00
[2024-12-20 08:53] LABS: Hematocrit 24.3 % (37.0-47.0); Hemoglobin 7.6 g/dL (12.0-16.0); Mean Corp Hgb Conc. 31.3 g/dL (33.0-37.0); Mean Corpuscular Volume 94.9 fL (81.0-99.0); Nucleated Red Blood Cells % 0 %; Platelet Count 105 10^3/uL (130-400); Red Cell Dist. Width 17.3 % (11.5-14.5)
--- NOTE | 2024-12-20 09:15 | W.PN.HOSP.TC ---
Today's Communication/Plan
-
see A/P
Assessment / Plan
Assessment / Plan
HPI: 69-year-old female with past medical history of Stage III gastric cancer currently on chemotherapy at [place], Crohn's disease, pulm edema, history of basal cancer, history of hiatal hernia; who p/w right-sided weakness. She first
experienced weakness in her R hand, then several hours later experienced slurred speech and difficulty finding words. Both symptoms lasted less than a minute.
She went to bed as usual, but woke up with speech difficulties. In addition she also has difficulty writing with her right hand and later felt weakness to her right leg.
A/P:
# Acute right-sided weakness, resolved dysarthria/expressive aphasia, concern for CVA/TIA
CT head- No acute intracranial abnormality.
CTA head and neck- No acute intracranial abnormality. No CTA evidence for high-grade stenosis or occlusion of the [place] of [place] or the arterial vasculature of the neck.
Check MRI (with and without contrast 2/2 underlying cancer)
pt request Ativan prior to MRI, ordered IV
Neurochecks Q6
Check A1c,
LDL 49, pt was started with Atorvastatin 40 mg daily
TSH WNL at 1.66
Neurology on board, [facility] DAPT aspirin and clopidogrel 21 days, then ASA lifelong
PT OT SPL eval
# Hypokalemia
Repleted
# Hypocalcemia
corrected calcium level 7.7
replete with IV calcium gluconate
# Gastric cancer on chemotherapy
On chemotherapy with FLOT plus durvalumab S/p 3 cycles with most recent tx 11/07/2024
Follows [place]
# Pancytopenia 2/2 chemo
Monitor CBC
# History of Chron's disease
On dicyclomine, loperamide
# Nodular enlargement of the right lobe of the thyroid gland
Outpatient thyroid ultrasound is recommended.
CODE STATUS FULL CODE
DVT prophylaxis SCDs
DW neuro
total time spent 51 min
Anticipated Discharge: 24 - 48 hours
Subjective/Interval History
-
Date of Service: December 20, 2024
Objective Data
-
Labs:
Laboratory Results
12/20/24
07:53
WBC 5.0
Hgb 7.6 L
Hct 24.3 L
Plt Count 105 L
Sodium 137
Potassium 4.0
Chloride 111 H
Carbon Dioxide 18 L
BUN 13
Creatinine 0.9
Glucose 94
Calcium 6.3 L* D
Vital Signs:
Vital Signs
Temp Pulse Resp BP Pulse Ox
36.7 C 73 15 137/70 99
12/20/24 07:06 12/20/24 07:06 12/20/24 07:06 12/20/24 07:06 12/20/24 07:06
I&O
12/19/24 12/20/24 12/21/24
06:59 06:59 06:59
Intake Total 120 / 120
Output Total 500 / 500
Balance -380 / -380
Review of Systems
-
History Source: Patient
Neuro: Reports Weakness (R hand clumsy, R leg weakness/foot drop ) and Other (mild slurry of speech)
Physical Exam
-
General: Well Developed, Well Nourished, No Apparent Distress, Comfortable and Conversant
HEENT: Normocephalic, Atraumatic and Other (baldness due to chemo )
Respiratory: Clear to Auscultation and Non Labored Respirations; Negative Accessory Resp Muscle Use
Cardiac: Regular Rhythm and S1/S2
GI: Soft, Nontender and Nondistended; Negative Normal Bowel Sounds (decreased Bowel sounds)
Skin: Warm and IV Access / Catheter Site (chest wall Port)
Neuro: Awake, Alert and Oriented; Negative Facial Droop
Psych: Calm and Intact Judgement/Insight
Data Reviewed
-
Labs: Labs Reviewed by me
[2024-12-20] MEDS: CALCIUM GLUCONATE 100 IV (09:31)
[2024-12-20] MEDS: PLAVIX 75 MG PO (09:32)
[2024-12-20] MEDS: PROTONIX 40 MG PO (09:32)
[2024-12-20] MEDS: LOW STRENGTH ASPIRIN 81 MG PO (09:32)
[2024-12-20] MEDS: CARAFATE SUSPENSION 1 GM PO ×3 (09:32→16:30)
[2024-12-20 10:35] LABS: Glycohemoglobin (HgbA1c) 4.1 % (4.0-5.6)
[2024-12-20] MEDS: VALIUM INJECTION 5 MG IV (10:51)
[2024-12-20 11:09] LABS: Calcium 8.0 mg/dl (8.4-10.2)
[2024-12-20 11:27] LABS: Magnesium 1.8 mg/dl (1.6-2.3)
--- NOTE | 2024-12-20 16:23 | PTOTSP ---
Speech Therapy Evaluation
Pt seen in room for cognitive-linguistic evaluation and bedside swallow evaluation. Pt denies any recent cognitive changes since recent hospitalization. Reports generalized weakness since starting chemotherapy. Pt participated in [employer] Cognitive
Assessment (MOCA) Version 8.1. Pt scored 28/30 yielding cognitive skills that fall within the normal range. Pt speech fluent with no anomia or apraxia of speech. Mild dysarthria with mildly reduced articulatory precision. Reduced vocal volume, which
pt reports has started since chemotherapy. Pt concerned with verbal output, stating speech is 'slow' and often 'tramples' words. Briefly discussed motor speech strategies, including enunciation, slow rate, and increased volume.�
Pt seen with trials of regular solids and thin liquids. At rest, pt with mild R sided lower facial droop. Pt managed PO trials with what appeared to be a functional oral phase (adequate mastication, good bolus formation, adequate ap transfer, no
overt s/sx of aspiration, denial of globus sensation). Pt reports x1 liquid escaping to R side. Pt previously admitted with concerns for swallow. VSE completed 06/25/2024 revealing transient laryngeal penetration with thin liquids by cup/straw and
with nectar thick consistency by straw. No aspiration noted during study.�
Recommendations:
1. Continue IDDSI 7 Regular solids, IDDSI 0 Thin liquids
2. Medication as tolerated
3. General aspiration precautions
4. Speech to follow for speech strategies secondary to dysarthria and to follow up on diet tolerance
--- NOTE | 2024-12-20 16:23 | W.PN.NEURO.1 ---
Today's Communication / Plan
-
21 days of DAPT for now
cardiology consult for ? [facility]
Neuro Assessment/Plan
Assessment
MRI brain imgs rev'd with patient and family showing acute embolic stroke, bilateral hemisphere and cerebellum, mostly in L MCA territory explaining her presentation of right sided weakness
CTA head/neck rept rev'd mild atherosclerosis right carotid bifurcation.
HDL 29, LDL 49
69 year old woman with acute embolic stroke on MRI
recommend continuing with ASA 81, 21 days Plavix unless source is found
check ECHO
consulted cardiology to see if [facility] is possible with her anatomy, patient is agreeable for procedure
if no source found, would recommend additional afib screening Linq or apple watch
etiology of her stroke is not vascular and her lipids look ok, so i see no indication for statin
She does have cancer which can make her hypercoagulable, but she is planned for eventual gastrectomy which should cure her cancer and then she won't be hypercoagulable anymore
Ideally I would wait at least 3-4 weeks before major surgery which is of moderate stroke risk.
d/w patient/family all ? answered
d/w cardology and hospitalist.
Subjective/Objective
Subjective Data
Date of Service: December 20, 2024
right sided weakness and handwriting problem persists
69-year-old female past medical history of CVA, stomach cancer status post chemotherapy, pancytopenia/neutropenia, Crohn's disease, osteoarthritis, basal cell carcinoma, colon polyp, esophageal ulcer, hiatal hernia, osteoporosis, presenting with
difficulty with right sided weakness, handwriting, word finding difficulties
Objective Data
Vital Signs
Temp Pulse Resp BP Pulse Ox
36.8 C 78 16 130/75 100
12/20/24 14:53 12/20/24 14:53 12/20/24 14:53 12/20/24 14:53 12/20/24 14:53
Lab Results
12/20/24 07:53
12/20/24 07:53
Sodium 137 mmol/L (135-145) 12/20/24 07:53
Potassium 4.0 mmol/L (3.5-5.1) 12/20/24 07:53
BUN 13 mg/dl (7-17) 12/20/24 07:53
Glucose 94 mg/dl (70-99) 12/20/24 07:53
Calcium 8.0 mg/dl (8.4-10.2) L 12/20/24 07:53
LDL Cholesterol, Calc 49 mg/dl 12/20/24 07:53
Vitamin B12 > 1000 pg/ml (239-931) H 12/19/24 14:31
Patient Allergies
penicillin G Allergy (Verified 12/19/24 19:38)
Rash
Penicillins Allergy (Verified 12/19/24 19:38)
Rash
Physical Exam
-
Awake, alert, interactive, speech clear
VFF, EOMI, right nasolabial flattening
RUE/LE 5-/5, LUE/LE full strength
sensation intact to touch/temp
[2024-12-20] MEDS: NSS 250 IV (16:30)
[2024-12-20] MEDS: TYLENOL 650 MG PO (22:12)
[2024-12-20] MEDS: MELATONIN 5 MG PO (22:12)
[2024-12-20] MEDS: AMBIEN 5 MG PO (22:12)
[2024-12-20] MEDS: SENOKOT 17.2 MG PO (22:12)
[2024-12-20] MEDS: MIRALAX 17 GRAMS PO (22:13)
[2024-12-21 03:21] VITALS: BP 126/68
[2024-12-21 07:38] VITALS: BP 146/77
[2024-12-21 08:45] LABS: Hematocrit 23.4 % (37.0-47.0); Hemoglobin 7.4 g/dL (12.0-16.0); Mean Corp Hgb Conc. 31.6 g/dL (33.0-37.0); Mean Corpuscular Volume 95.5 fL (81.0-99.0); Nucleated Red Blood Cells % 0 %; Platelet Count 103 10^3/uL (130-400); Red Cell Dist. Width 17.2 % (11.5-14.5)
--- NOTE | 2024-12-21 09:02 | W.PN.HOSP.TC ---
Addendum entered and electronically signed by Bri Fowler MD 12/21/24 11:01:
Cardiology CS formally placed for Linq
Original Note:
Today's Communication/Plan
-
see A/P
Assessment / Plan
Assessment / Plan
HPI: 69-year-old female with past medical history of Stage III gastric cancer currently on chemotherapy at [facility], Crohn's disease, pulm edema, history of basal cancer, history of hiatal hernia; who p/w right-sided weakness. She first
experienced weakness in her R hand, then several hours later experienced slurred speech and difficulty finding words. Both symptoms lasted less than a minute.
She went to bed as usual, but woke up with speech difficulties. In addition she also has difficulty writing with her right hand and later felt weakness to her right leg.
A/P:
# Acute right-sided weakness, resolved dysarthria/expressive aphasia, 2/2 embolic stroke throughout both the anterior and posterior circulation (frontal lobes, occipital lobes, and cerebellar hemispheres).
CT head- No acute intracranial abnormality.
CTA head and neck- No acute intracranial abnormality. No CTA evidence for high-grade stenosis or occlusion of the [place] or the arterial vasculature of the neck.
MRI brain showed ACUTE EMBOLIC DISEASE with MANY SMALL ACUTE ISCHEMIC INFARCTS diffusely distributed throughout both the anterior and posterior circulation (frontal lobes, occipital lobes, and cerebellar hemispheres).
Check echo with bubble
Pt is contraindicated for KAISER in setting of gastric cancer involving the esophagus
Check BL LE US
d/w card, they will assist with Link device. No formal consult was placed.
Cont Neurochecks
A1c 4.1%
LDL 49, pt was started with Atorvastatin 40 mg daily
TSH WNL at 1.66
Neurology on board, recc DAPT aspirin and clopidogrel 21 days, then ASA lifelong
SPL cleared for solid
PT OT, Physiatry consulted for Noble eval
# Hypokalemia
Repleted
# Hypocalcemia
corrected calcium level 7.7
Monitor level
# Gastric cancer on chemotherapy
On chemotherapy with FLOT plus durvalumab S/p 3 cycles with most recent tx 11/07/2024
Follows [facility]
# Pancytopenia 2/2 chemo
Monitor CBC
Consider transfuse for Hgb < 7
Blood consent obtained
# History of Chron's disease
On dicyclomine, loperamide
# Nodular enlargement of the right lobe of the thyroid gland
Outpatient thyroid ultrasound is recommended.
CODE STATUS FULL CODE
DVT prophylaxis SCDs
DW neuro,
DW Card Dr Jules
DW extensively
total time spent 51 min
Anticipated Discharge: 24 - 48 hours
Subjective/Interval History
-
Date of Service: December 21, 2024
Objective Data
-
Labs:
Laboratory Results
12/21/24
08:27
WBC 3.0 L
Hgb 7.4 L
Hct 23.4 L
Plt Count 103 L
Sodium Pending
Potassium Pending
Chloride Pending
Carbon Dioxide Pending
BUN Pending
Creatinine Pending
Glucose Pending
Calcium Pending
Vital Signs:
Vital Signs
Temp Pulse Resp BP Pulse Ox
36.5 C 71 16 146/77 97
12/21/24 07:38 12/21/24 07:38 12/21/24 07:38 12/21/24 07:38 12/21/24 07:38
I&O
12/20/24 12/21/24 12/22/24
06:59 06:59 06:59
Intake Total 120 / 120 800 / 800
Output Total 500 / 500 350 / 350
Balance -380 / -380 450 / 450
Review of Systems
-
History Source: Patient
Neuro: Reports Weakness (R hand clumsy, R leg weakness/foot drop )
Physical Exam
-
General: Well Developed, Well Nourished, No Apparent Distress, Comfortable and Conversant
HEENT: Normocephalic, Atraumatic and Other (hair loss due to chemo )
Respiratory: Clear to Auscultation and Non Labored Respirations; Negative Accessory Resp Muscle Use
Cardiac: Regular Rhythm and S1/S2
GI: Soft, Nontender and Nondistended; Negative Normal Bowel Sounds (decreased Bowel sounds)
Skin: Warm and IV Access / Catheter Site (chest wall chemoport)
Neuro: Awake, Alert and Oriented; Negative Facial Droop
Psych: Calm and Intact Judgement/Insight
Data Reviewed
-
MRI: Report Reviewed by me, Discussed with Physician, Discussed with Patient and Discussed with Family
Labs: Labs Reviewed by me
[2024-12-21] MEDS: LOW STRENGTH ASPIRIN 81 MG PO (09:10)
[2024-12-21] MEDS: PROTONIX 40 MG PO (09:10)
[2024-12-21] MEDS: CARAFATE SUSPENSION 1 GM PO ×3 (09:10→16:32)
[2024-12-21] MEDS: PLAVIX 75 MG PO (09:10)
[2024-12-21 09:16] LABS: Blood Urea Nitrogen 12 mg/dl (7-17); Calcium 7.6 mg/dl (8.4-10.2); Carbon Dioxide 25 mmol/L (22-30); Chloride 112 mmol/L (98-107); Estimated Creatinine Clearance 86 ml/min; Glucose 80 mg/dl (70-99); Magnesium 1.7 mg/dl (1.6-2.3); Potassium 3.6 mmol/L (3.5-5.1); Sodium 137 mmol/L (135-145); eGFR > 60.00
[2024-12-21 12:00] VITALS: BP 133/75
--- NOTE | 2024-12-21 14:22 | CON.CAR ---
Consultation
Consultation Request
Date/Time Consultation Requested: 12/21/24 11:00AM
Date/Time Consultation Performed: 12/21/24 1:00PM
Requesting Provider: DR Fowler
Performing Provider: Dr Rojas
Reason for Consultation: CVA
Medical History
-
Chief Complaint: slurred speach, arm weakness
History of Present Illness:
69-year-old female with past medical history of esophageal and stomach cancer currently getting treated with chemotherapy at [facility], Crohn's disease, osteoarthritis, and pancytopenia presented on 12/19/2024 with difficulty walking,
right leg weakness, some slurred speech and weakness of her right side. CTA of the head neck revealed no significant carotid disease but MRI of the brain revealed acute embolic stroke in the anterior and posterior circulation, frontal lobe,
occipital lobe, and cerebellar hemispheres. Cardiology is now consulted to evaluate for source of emboli. The patient denies any chest pains or shortness of breath. She has had significant fatigue with her chemotherapy treatments but denies any
palpitations, dizziness, or syncope. She has no fevers or chills. She has no overt bleeding. Her cancer extends from the esophagus to the GE junction into the stomach. Plan is for eventual surgery. She has more chemotherapy left.
Past Medical History
Past Medical History: Cancer (Esophageal/gastric cancer status post chemotherapy) and Other (Crohn's disease, pancytopenia, hypokalemia)
Past Surgical History: Orthopedic
Social History
Tobacco: Former Smoker
Alcohol: None
Drug: None
Personal:
Living: With Family
Family History
Family History: Other (CVA)
Allergies / Home Medications
Allergy/AdvReac Type Severity Reaction Status Date / Time
penicillin G Allergy Rash Verified 12/19/24 19:38
Penicillins Allergy Rash Verified 12/19/24 19:38
�Medication �Instructions �Recorded �Confirmed �Type
acetaminophen 325 mg tablet 650 mg PO HS 11/15/24 12/19/24 History
(Tylenol)
dexamethasone 4 mg tablet 4 mg PO DIRECTED 11/15/24 12/19/24 History
loratadine 10 mg tablet (Claritin) 10 mg PO DIRECTED 11/15/24 12/19/24 History
ondansetron HCl 8 mg tablet 8 mg PO Q8HPRN PRN nausea 11/15/24 12/19/24 History
pantoprazole 40 mg tablet,delayed 40 mg PO DAILY 11/15/24 12/19/24 History
release (Protonix)
prochlorperazine maleate 10 mg 10 mg PO Q6HPRN PRN nausea 11/15/24 12/19/24 History
tablet (Compazine)
zolpidem 5 mg tablet (Ambien) 5 mg PO HS sleep 11/15/24 12/19/24 History
Senna Gummy 17.2 g PO HS 12/19/24 12/19/24 History
melatonin 10 mg chewable tablet 5 mg PO HS 12/19/24 12/19/24 History
polyethylene glycol 3350 17 gram 17 g PO HS 12/19/24 12/19/24 History
oral powder packet (Miralax)
sucralfate 100 mg/mL oral 10 ml PO AC 12/19/24 12/19/24 History
suspension (Carafate)
Review of Systems
-
History Source: Patient and Family
Constitutional: Fatigue
EENT: No Symptoms
Respiratory: No Symptoms
Cardiac: No Symptoms
Abdomen/GI: Abdominal Pain
: No Symptoms
Musculoskeletal: No Symptoms
Skin: No Symptoms
Neurological: Weakness and Numbness
Endocrine: No Symptoms
Hematologic/Lymphatic: No Symptoms
Physical Exam
Vital Signs
Temp Pulse Resp BP Pulse Ox
98.1 F 78 16 133/75 99
12/21/24 12:00 12/21/24 12:00 12/21/24 12:00 12/21/24 12:00 12/21/24 12:00
Lab Results
12/21/24 08:27
12/21/24 08:27
Physical Exam
General: Well Developed and Well Nourished
HEENT: Normocephalic
Respiratory: Clear and Non Labored Respirations
Cardiac: S1/S2 and Regular Rhythm
GI: Soft, Non Tender and Non Distended
Musculoskeletal: No Cyanosis and No Edema
Skin: Warm and Dry
Neuro: AO x 3
Psych: Calm
Impression / Plan
-
Assessment:
Acute embolic stroke with shower emboli
Stage III esophageal/gastric cancer with current chemotherapy treatments at [place]
Pancytopenia
Crohn's disease
Hiatal hernia
Osteoporosis
MRI of the brain 12/20/2024 with acute embolic disease with many infarcts distributed between the anterior and posterior circulation including frontal, occipital, and cerebellar hemispheres.
Plan:
She presents with acute shower emboli. Carotid ultrasound was normal with CTA of the head and neck. Telemetry so far with no events.
We were asked to consider a transesophageal echo but with stage III esophageal cancer this is an absolute contraindication so would not pursue [facility].
We will check transthoracic echo with bubble study in AM.
I had a lengthy discussion with her regarding cardiac source of emboli and she is high risk for having possible paroxysmal atrial fibrillation. We agreed to proceed with Linq monitor in AM.
Continue to follow on telemetry. Continue aspirin and Plavix for now.
Check lipids. Blood pressure is stable and it would allow some permissive hypertension with acute stroke.
Data Reviewed
-
EKG: Report Reviewed by me
Radiology: Report Reviewed by me
CT Scan: Report Reviewed by me
MRI: Report Reviewed by me
Labs: Labs Reviewed by me
Old Records: Reviewed
[2024-12-21 16:27] VITALS: BP 157/84
[2024-12-21] MEDS: KCL 270 MEQ IV (16:32)
[2024-12-21 19:42] VITALS: BP 139/66
[2024-12-21] MEDS: MIRALAX 17 GRAMS PO (21:00)
[2024-12-21] MEDS: SENOKOT 17.2 MG PO (21:02)
[2024-12-21] MEDS: TYLENOL 650 MG PO (21:02)
[2024-12-21] MEDS: AMBIEN 5 MG PO (21:03)
[2024-12-21] MEDS: MELATONIN 5 MG PO (21:03)
[2024-12-21 23:19] VITALS: BP 137/79
[2024-12-22] VITALS (8 sets, daily range): BP systolic 106–152; BP diastolic 65–81; PULSE 80; O2SAT 97
[2024-12-22 05:45] LABS: Hematocrit 22.0 % (37.0-47.0); Hemoglobin 7.0 g/dL (12.0-16.0); Mean Corp Hgb Conc. 31.8 g/dL (33.0-37.0); Mean Corpuscular Volume 96.5 fL (81.0-99.0); Nucleated Red Blood Cells % 0 %; Platelet Count 97 10^3/uL (130-400); Red Cell Dist. Width 17.2 % (11.5-14.5)
[2024-12-22 05:53] LABS: Blood Urea Nitrogen 12 mg/dl (7-17); Calcium 7.5 mg/dl (8.4-10.2); Carbon Dioxide 24 mmol/L (22-30); Chloride 113 mmol/L (98-107); Estimated Creatinine Clearance 86 ml/min; Glucose 74 mg/dl (70-99); Potassium 3.8 mmol/L (3.5-5.1); Sodium 136 mmol/L (135-145); eGFR > 60.00
[2024-12-22] MEDS: PROTONIX 40 MG PO (07:53)
[2024-12-22] MEDS: CARAFATE SUSPENSION 1 GM PO ×3 (07:53→17:13)
[2024-12-22] MEDS: LOW STRENGTH ASPIRIN 81 MG PO (07:53)
[2024-12-22] MEDS: PLAVIX 75 MG PO (07:53)
--- NOTE | 2024-12-22 08:50 | PTCARENOTE ---
Pt here for Echo and Bubble Study. Bubble Study completed per protocol with aseptic technique. Left arm 18 G PC utilized, flushed easily pre and post procedure, site clear. Pt tolerated procedure well, denies dizziness, offers no complaints, no
change in status.
--- NOTE | 2024-12-22 11:46 | W.PN.CARDCBS ---
Today's Communication / Plan
-
For loop recorder implant today
Impression / Plan
-
Assessment:
Acute embolic stroke with shower emboli
Stage III esophageal/gastric cancer with current chemotherapy treatments at [place]
Pancytopenia
Crohn's disease
Hiatal hernia
Osteoporosis
MRI of the brain 12/20/2024 with acute embolic disease with many infarcts distributed between the anterior and posterior circulation including frontal, occipital, and cerebellar hemispheres.
Plan:
She presented with acute shower emboli. Carotid ultrasound was normal with CTA of the head and neck. Telemetry so far with no events.
We were asked to consider a transesophageal echo but with stage III esophageal cancer this is an absolute contraindication so would not pursue [facility].
Transthoracic echocardiogram December 22, 2024 shows normal LVEF at 65% with mild LVH, normal RV size and function. No significant valvular disease. Interatrial septum is thinned and mobile with no evidence
of shunting either by color or agitated saline.
Will proceed with implantation of loop recorder to evaluate for arrhythmic cause for his cryptogenic stroke.
She remains on aspirin and Plavix.
Lipid profile from December 20, 2024 triglycerides 196, LDL 49, HDL 29, VLDL 39 and triglycerides 196
Would initiate statin unless there is some contraindication.
Blood pressure management as per primary service. Blood pressure is stable and given acute/subacute CVA would allow some permissive hypertension with acute stroke.
We will make arrangements for outpatient follow-up including loop recorder implant follow-up.
Will sign off.
Please call if any questions.
Progress Note - [facility]
Subjective
Date of Service: December 22, 2024
She denies chest pain shortness of breath palpitations dizziness
Objective
Labs:
12/22/24 05:04
12/22/24 05:04
Labs
Hgb 7.0 g/dL (12.0-16.0) L 12/22/24 05:04
Hct 22.0 % (37.0-47.0) L 12/22/24 05:04
Plt Count 97 10^3/uL (130-400) L 12/22/24 05:04
Sodium 136 mmol/L (135-145) 12/22/24 05:04
Potassium 3.8 mmol/L (3.5-5.1) 12/22/24 05:04
BUN 12 mg/dl (7-17) 12/22/24 05:04
Creatinine 0.6 mg/dL (0.6-1.0) 12/22/24 05:04
Glucose 74 mg/dl (70-99) 12/22/24 05:04
Vital Signs and I&O:
Vital Signs
Temp Pulse Resp BP Pulse Ox
98.3 F 76 18 140/81 96
12/22/24 07:24 12/22/24 07:24 12/22/24 07:24 12/22/24 07:24 12/22/24 07:24
Vital Signs
Temp Pulse Resp BP Pulse Ox
98.3 F 76 18 140/81 96
12/22/24 07:24 12/22/24 07:24 12/22/24 07:24 12/22/24 07:24 12/22/24 07:24
Intake & Output
12/20/24 12/21/24 12/22/24 12/23/24
06:59 06:59 06:59 06:59
Intake Total 120 / 120 800 / 800 1040 / 1040
Output Total 500 / 500 350 / 350
Balance -380 / -380 450 / 450 1040 / 1040
Physical Exam
Physical Exam
Elderly woman no acute distress appears somewhat fatigued.
Pale appearing
Regular rate and rhythm with normal S1 and S2, no S3 no S4 degree 1/6 apical holosystolic murmur no rubs.
Lungs clear to auscultation bilaterally without wheezes rales or rhonchi
Abdomen soft nontender nondistended with normoactive bowel sounds
Extremities show +1 nonpitting pretibial edema bilaterally
--- NOTE | 2024-12-22 14:11 | W.PN.HOSP.TC ---
Today's Communication/Plan
-
DAPT. LinQ
Assessment / Plan
Assessment / Plan
Physical exam:
General: Well Developed, Well Nourished and No Apparent Distress
HEENT: Normocephalic, Atraumatic and Moist Mucous Membranes
Respiratory: Clear to Auscultation; Negative Wheezes, Rales or Rhonchi
Cardiac: Regular Rhythm and S1/S2
GI: Soft, Nontender and Nondistended
Musculoskeletal: No Clubbing, No Cyanosis and No Edema
Neuro: Awake, Alert and Oriented, right-sided weakness improved, slurred speech improved as well.
Psych: Calm
HPI: 69-year-old female with past medical history of Stage III gastric cancer currently on chemotherapy at [facility], Crohn's disease, pulm edema, history of basal cancer, history of hiatal hernia; who p/w right-sided weakness. She first
experienced weakness in her R hand, then several hours later experienced slurred speech and difficulty finding words. Both symptoms lasted less than a minute.
She went to bed as usual, but woke up with speech difficulties. In addition she also has difficulty writing with her right hand and later felt weakness to her right leg.
A/P:
# Acute right-sided weakness, resolved dysarthria/expressive aphasia, 2/2 embolic stroke throughout both the anterior and posterior circulation (frontal lobes, occipital lobes, and cerebellar hemispheres).
CT head- No acute intracranial abnormality.
CTA head and neck- No acute intracranial abnormality. No CTA evidence for high-grade stenosis or occlusion of the [place] or the arterial vasculature of the neck.
MRI brain showed ACUTE EMBOLIC DISEASE with MANY SMALL ACUTE ISCHEMIC INFARCTS diffusely distributed throughout both the anterior and posterior circulation (frontal lobes, occipital lobes, and cerebellar hemispheres).
Check echo with bubble
Pt is contraindicated for [facility] in setting of gastric cancer involving the esophagus
Check BL LE US
d/w card, they will assist with Link device.
Cont Neurochecks
A1c 4.1%
LDL 49, pt was started with Atorvastatin 40 mg daily
TSH WNL at 1.66
Neurology on board, recc DAPT aspirin and clopidogrel 21 days, then ASA lifelong
SPL cleared for solid
PT OT, probably not a candidate for Noble eval and rather outpatient therapy
# Hypokalemia
Repleted
# Hypocalcemia
corrected calcium level 7.7
Monitor level
# Gastric cancer on chemotherapy
On chemotherapy with FLOT plus durvalumab S/p 3 cycles with most recent tx 11/07/2024
Follows [facility]
# Pancytopenia 2/2 chemo
Monitor CBC
Consider transfuse for Hgb < 7
Blood consent obtained
# History of Chron's disease
On dicyclomine, loperamide
# Nodular enlargement of the right lobe of the thyroid gland
Outpatient thyroid ultrasound is recommended.
CODE STATUS FULL CODE
DVT prophylaxis Lovenox
DW extensively
total time spent 35 min
Anticipated Discharge: Within 24 hours
Subjective/Interval History
-
Date of Service: December 22, 2024
Patient feels better overall. Afebrile
Objective Data
-
Labs:
Laboratory Results
12/22/24
05:04
WBC 3.2 L
Hgb 7.0 L
Hct 22.0 L
Plt Count 97 L
Sodium 136
Potassium 3.8
Chloride 113 H
Carbon Dioxide 24
BUN 12
Creatinine 0.6
Glucose 74
Calcium 7.5 L
Vital Signs:
Vital Signs
Temp Pulse Resp BP Pulse Ox
98.2 F 79 20 152/75 99
12/22/24 12:32 12/22/24 12:32 12/22/24 12:32 12/22/24 12:32 12/22/24 12:32
I&O
12/21/24 12/22/24 12/23/24
06:59 06:59 06:59
Intake Total 800 / 800 1040 / 1040
Output Total 350 / 350
Balance 450 / 450 1040 / 1040
--- NOTE | 2024-12-22 14:38 | ITS.CL.IMPLP ---
[facility] - Implant Loop
Implant Loop
Procedure Report:
Date of Procedure: December 22, 2024
Procedure: Insertable Loop Recorder Implantation
Indication:
Cryptogenic CVA
Procedure:
The patient was brought to the procedure area in a fasting state. The anterior chest was prepped and draped in standard sterile fashion. The fourth intercostal space along the left sternal border was identified and this area was anesthetized with 10
mL of 1% lidocaine. After gathering the skin in this area, a small punch incision was made at approx intercostal space 4-5 at left costo-sternal junction using the provided scalpel/punch tool. The loop recorder was loaded into the tunneling device.
A tunnel was created in the subcutaneous tissue at a 45� angle along the coronal plane away from the sternum and towards the left flank. The tunneling device was inverted and the plunger was depressed, inserting the loop recorder into the
subcutaneous space. The tunneling device was removed. Manual pressure provide hemostasis. Adequate signal was confirmed. The skin was closed with steri-strips. The estimated blood loss was < 1 cc. A clean dressing was placed over the wound.
There were no complications.
Implant:
[employer]tronic Reveal LINQ II
Conclusion: Uncomplicated implantation of loop recorder.
Recommendation: Routine ILR care.
Copy:
Leatha Urban MD
--- NOTE | 2024-12-22 15:01 | CM ---
Chart reviewed. Care ongoing
For loop recorder implant today
Patient was hoping to go to acute rehab. Therapy re assessed, patient more appropriate for outpatient therapy
Current w/ [facility]
Plan: Home w/ OP PT
[2024-12-22] MEDS: LOVENOX 40 MG SC (17:13)
[2024-12-22] MEDS: MIRALAX 17 GRAMS PO (19:39)
[2024-12-22] MEDS: TYLENOL 650 MG PO (19:39)
[2024-12-22] MEDS: SENOKOT 17.2 MG PO (21:44)
[2024-12-22] MEDS: MELATONIN 5 MG PO (21:44)
[2024-12-22] MEDS: AMBIEN 5 MG PO (21:45)
[2024-12-23 03:07] VITALS: BP 126/71
[2024-12-23 05:10] LABS: Hematocrit 21.9 % (37.0-47.0); Hemoglobin 7.0 g/dL (12.0-16.0); Mean Corp Hgb Conc. 32.0 g/dL (33.0-37.0); Mean Corpuscular Volume 95.2 fL (81.0-99.0); Platelet Count 100 10^3/uL (130-400); Red Cell Dist. Width 17.3 % (11.5-14.5)
[2024-12-23 05:35] LABS: Blood Urea Nitrogen 16 mg/dl (7-17); Calcium 7.6 mg/dl (8.4-10.2); Carbon Dioxide 23 mmol/L (22-30); Chloride 114 mmol/L (98-107); Estimated Creatinine Clearance 86 ml/min; Glucose 81 mg/dl (70-99); Potassium 3.7 mmol/L (3.5-5.1); Sodium 137 mmol/L (135-145); eGFR > 60.00
[2024-12-23] MEDS: ZOFRAN 8 MG PO (07:55)
[2024-12-23] MEDS: CARAFATE SUSPENSION 1 GM PO ×2 (07:57→11:37)
[2024-12-23 08:00] VITALS: BP 136/83
--- NOTE | 2024-12-23 08:50 | W.PN.HOSP.TC ---
Today's Communication/Plan
-
Discharge planning
Assessment / Plan
Assessment / Plan
Physical exam:
General: Well Developed, Well Nourished and No Apparent Distress
HEENT: Normocephalic, Atraumatic and Moist Mucous Membranes
Respiratory: Clear to Auscultation; Negative Wheezes, Rales or Rhonchi
Cardiac: Regular Rhythm and S1/S2
GI: Soft, Nontender and Nondistended
Musculoskeletal: No Clubbing, No Cyanosis and No Edema
Neuro: Awake, Alert and Oriented, right-sided weakness improved, slurred speech improved as well.
Psych: Calm
HPI: 69-year-old female with past medical history of Stage III gastric cancer currently on chemotherapy at [place], Crohn's disease, pulm edema, history of basal cancer, history of hiatal hernia; who p/w right-sided weakness. She first
experienced weakness in her R hand, then several hours later experienced slurred speech and difficulty finding words. Both symptoms lasted less than a minute.
She went to bed as usual, but woke up with speech difficulties. In addition she also has difficulty writing with her right hand and later felt weakness to her right leg.
A/P:
# Acute right-sided weakness, resolved dysarthria/expressive aphasia, 2/2 embolic stroke throughout both the anterior and posterior circulation (frontal lobes, occipital lobes, and cerebellar hemispheres).
CT head- No acute intracranial abnormality.
CTA head and neck- No acute intracranial abnormality. No CTA evidence for high-grade stenosis or occlusion of the [place] or the arterial vasculature of the neck.
MRI brain showed ACUTE EMBOLIC DISEASE with MANY SMALL ACUTE ISCHEMIC INFARCTS diffusely distributed throughout both the anterior and posterior circulation (frontal lobes, occipital lobes, and cerebellar hemispheres).
Check echo with bubble and unremarkable
Pt is contraindicated for [facility] in setting of gastric cancer involving the esophagus
Check BL LE US negative for DVT
Cardiology consulted and status post Link device.
Cont Neurochecks
A1c 4.1%
LDL 49, pt was started with Atorvastatin 40 mg daily
TSH WNL at 1.66
Neurology on board, recc DAPT aspirin and clopidogrel 21 days, then ASA lifelong
SPL cleared for solid
PT OT, not a candidate for Noble eval and rather outpatient therapy. I touched base with her outpatient oncologist today and discussed about what transpired during this hospital stay and plan of care.
Neurology did not recommend statins. Cardiology did recommend statins. I discussed with patient and went over risk and benefits and told her about 2 different approaches but she prefers not to be on statins at the moment so we will honor her
decision.
# Hypokalemia
Repleted
# Hypocalcemia
corrected calcium level 7.7
Monitor level
# Gastric cancer on chemotherapy
On chemotherapy with FLOT plus durvalumab S/p 3 cycles with most recent tx 11/07/2024
Follows [facility]
# Pancytopenia 2/2 chemo
Monitor CBC
Consider transfuse for Hgb < 7
Blood consent obtained
# History of Chron's disease
On dicyclomine, loperamide
# Nodular enlargement of the right lobe of the thyroid gland
Outpatient thyroid ultrasound is recommended.
CODE STATUS FULL CODE
DVT prophylaxis Lovenox
DW extensively
Anticipated Discharge: Today
Subjective/Interval History
-
Date of Service: December 23, 2024
No new complaints except for some nausea earlier this morning. Neurologically doing well. No bleeding. Afebrile
Objective Data
-
Labs:
Laboratory Results
12/23/24
04:52
WBC 3.2 L
Hgb 7.0 L
Hct 21.9 L
Plt Count 100 L
Sodium 137
Potassium 3.7
Chloride 114 H
Carbon Dioxide 23
BUN 16
Creatinine 0.6
Glucose 81
Calcium 7.6 L
Vital Signs:
Vital Signs
Temp Pulse Resp BP Pulse Ox
98.6 F 80 16 136/83 97
12/23/24 08:00 12/23/24 08:00 12/23/24 08:00 12/23/24 08:00 12/23/24 08:00
I&O
12/22/24 12/23/24 12/24/24
06:59 06:59 06:59
Intake Total 1040 / 1040 920 / 920
Balance 1040 / 1040 920 / 920
[2024-12-23] MEDS: PLAVIX 75 MG PO (08:51)
[2024-12-23] MEDS: LOW STRENGTH ASPIRIN 81 MG PO (08:51)
[2024-12-23] MEDS: PROTONIX 40 MG PO (08:51)
--- NOTE | 2024-12-23 10:15 | PTCARENOTE ---
Patient reports waking up this morning feeling nauseous and dy heaving. Denies any vomiting. PRN zofran given with good effect, patient able to eat majority of her breakfast and take her PO medications. Plan of care ongoing.
[2024-12-23 12:10] VITALS: BP 129/73
--- NOTE | 2024-12-23 12:17 | W.DCSUMMARY ---
Discharge Summary
Discharge Data
Date of Admission: 12/22/24
Date of Discharge: 12/23/24
Total time spent discharging patient (in min): 35
-
Pending Results: No
Hospital Course
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 Neurology was consulted. She was started on dual antiplatelet
therapy and plan to continue for 3 weeks and afterwards monotherapy antiplatelet. Cardiology was also consulted due to concerns for cardioembolic source of stroke. Cardiology did an implantation of a loop recorder and will follow-up as outpatient.
The possibility of [facility] was contemplated but cardiology feels that there is an absolute contraindication to this procedure due to her esophageal cancer. Her transthoracic echocardiogram with bubble study was unremarkable. Cardiology recommended
statin nevertheless neurology did not recommend statins. We discussed with patient risk and benefits of both approaches and patient and family decided against statins at the moment and can reevaluate as outpatient. Patient also participated with
PT and OT and she did well and did not require acute rehab. She is a candidate for outpatient physical therapy occupational therapy and speech therapy and this will be arranged through implementation manager. Otherwise, patient hemodynamically stable and
she is cleared to discharge in stable condition today.
Discharge duration: 35 minutes
Discharge Plan
-
Patient Disposition: Home with Home Care
Discharge Diagnosis/Procedures: Acute stroke concerns for embolic etiology. Linq device implant (12/22)
Diet: Low Cholesterol
Activity: As tolerated
Blood Work: Please PCP and or oncology to order CBC, BMP within 1 week
Stand Alone Forms: DC Inst - Implanted Device
Referrals:
[facility] [Provider Group] - 01/05/25 11:00 am
Referral Note: Post linq device incision check appointment- this is a telehealth appointment
Leatha Urban MD [Family Provider, Internal Medicine] - in less than 1 week
Additional Discharge Medication Instructions: Take aspirin and Plavix for 21 days and after that take aspirin once a day lifelong. If any major bleeding needs to seek medical advice immediately.
Prescriptions:
New
aspirin 81 mg Tablet,Chewable
81 mg PO DAILY Qty: 30 0RF
clopidogrel 75 mg Tablet
75 mg PO DAILY 21 Days Qty: 21 0RF
Continued
prochlorperazine maleate [Compazine] 10 mg Tablet
10 mg PO Q6HPRN PRN (Reason: nausea)
pantoprazole [Protonix] 40 mg Tablet,Delayed Release (Dr/Ec)
40 mg PO DAILY
zolpidem [Ambien] 5 mg Tablet
5 mg PO HS
acetaminophen [Tylenol] 325 mg Tablet
650 mg PO HS
ondansetron HCl 8 mg Tablet
8 mg PO Q8HPRN PRN (Reason: nausea)
dexamethasone 4 mg Tablet
4 mg PO DIRECTED
Rx Instructions:
take 4mg bid the day before, the day of and after.
loratadine [Claritin] 10 mg Tablet
10 mg PO DIRECTED
Rx Instructions:
take 5 after chemo
polyethylene glycol 3350 [Miralax] 17 gram Powder In Packet
17 g PO HS
sucralfate [Carafate] 100 mg/mL Suspension
10 ml PO AC
melatonin 10 mg Tablet,Chewable
5 mg PO HS
Senna Gummy
17.2 g PO HS
Discharge Orders:
Discharge Patient (As Directed); Ordered 12/23/24
Ordered By: Jordan Boucher
Discharge Date and Time
Discharge Date/Time: 12/23/24 14:14
Print Language: INDONESIAN
--- NOTE | 2024-12-23 14:07 | CM ---
Patient seen bedside with spouse.
Patient and spouse requested outpatient therapy, will need script.
Phone number for outpatient therapy provided to patient.
IMM completed.
spouse will transport.
Plan: home with outpatient therapy.
== END 2024-12-23 14:14 | disposition home or self-care (01) | DRG 40 ==
LOC: 4 WEST ACU 08:06
PROVIDERS: Internal Medicine; Internal Medicine Cardiovascular Disease; Registered Nurse Critical Care Medicine; ADMITTING PHYSICIAN Hospitalist; ATTENDING PHYSICIAN Hospitalist; CONSULT PHYSICIAN Internal Medicine Cardiovascular Disease; CONSULT PHYSICIAN Psychiatry & Neurology Neurology; EMERGENCY PHYSICIAN Emergency Medicine; FAMILY PHYSICIAN Emergency Medicine
PROC: 0JH632Z Insertion of Monitoring Device into Chest Subcutaneous Tissue and Fascia, Percutaneous Approach (ICD-10-PCS; 2024-12-22)
DX: I63.449 Cerebral infarction due to embolism of unspecified cerebellar artery (principal); D61.810 Antineoplastic chemotherapy induced pancytopenia; C16.9 Malignant neoplasm of stomach, unspecified; K50.90 Crohn's disease, unspecified, without complications; G81.91 Hemiplegia, unspecified affecting right dominant side; J81.1 Chronic pulmonary edema; R47.01 Aphasia; R47.81 Slurred speech; R47.1 Dysarthria and anarthria; R26.2 Difficulty in walking, not elsewhere classified; K44.9 Diaphragmatic hernia without obstruction or gangrene; M19.90 Unspecified osteoarthritis, unspecified site; M81.0 Age-related osteoporosis without current pathological fracture; R29.810 Facial weakness; E87.6 Hypokalemia; E04.1 Nontoxic single thyroid nodule; E83.51 Hypocalcemia; E78.00 Pure hypercholesterolemia, unspecified; T45.1X5A Adverse effect of antineoplastic and immunosuppressive drugs, initial encounter; Y92.9 Unspecified place or not applicable; Z96.652 Presence of left artificial knee joint; Z86.73 Personal history of transient ischemic attack (TIA), and cerebral infarction without residual deficits; Z80.3 Family history of malignant neoplasm of breast; Z82.3 Family history of stroke; Z86.0100 Personal history of colon polyps, unspecified; Z87.891 Personal history of nicotine dependence; Z88.0 Allergy status to penicillin; Z87.11 Personal history of peptic ulcer disease; Z92.21 Personal history of antineoplastic chemotherapy; Z85.828 Personal history of other malignant neoplasm of skin; Z87.19 Personal history of other diseases of the digestive system
CPT/HCPCS: 33285; 70450; 70496; 70498; 70553; 80048; 80053; 80061; 82607; 82746; 82962; 83036; 83735; 84443; 85025; 85027; 92507; 92523; 92610; 93005; 93306; 93970; 97116; 97162; 97167; 97530; 97535; 99291; A9575; C1764; Q9967

== ENCOUNTER 2025-01-23 06:15 | Outpatient (RCR) | payer OTHER, SELFPAY | END 2025-01-23 23:59 | disposition home or self-care (01) | LOC: RST 06:15 | PROVIDERS: ATTENDING PHYSICIAN Emergency Medicine | DX: I69.351 Hemiplegia and hemiparesis following cerebral infarction affecting right dominant side (principal); I63.9 Cerebral infarction, unspecified (principal); Z73.6 Limitation of activities due to disability; I69.328 Other speech and language deficits following cerebral infarction; I67.9 Cerebrovascular disease, unspecified; C15.9 Malignant neoplasm of esophagus, unspecified; C78.89 Secondary malignant neoplasm of other digestive organs; I69.398 Other sequelae of cerebral infarction; R26.2 Difficulty in walking, not elsewhere classified; R53.83 Other fatigue; M62.81 Muscle weakness (generalized) | CPT/HCPCS: 92522; 97110; 97112; 97163; 97167; 97530; 97535 ==

== ENCOUNTER 2025-01-30 10:32 | Outpatient (RCR) | payer OTHER, SELFPAY | END 2025-02-02 11:58 | disposition home or self-care (01) | LOC: RST 10:32 | PROVIDERS: ATTENDING PHYSICIAN Emergency Medicine | DX: I67.9 Cerebrovascular disease, unspecified (principal); I69.328 Other speech and language deficits following cerebral infarction; Z73.6 Limitation of activities due to disability; I69.351 Hemiplegia and hemiparesis following cerebral infarction affecting right dominant side; C16.9 Malignant neoplasm of stomach, unspecified; C15.9 Malignant neoplasm of esophagus, unspecified; Z92.21 Personal history of antineoplastic chemotherapy | CPT/HCPCS: 97110; 97112; 97535; 97537 ==